=== PATIENT | male | born 1965 | race Caucasian/White ===

== ENCOUNTER 2024-01-12 13:00 | Outpatient (AMB) | payer BC, SELFPAY ==
--- NOTE | 2024-01-12 13:11 | A.OFFVIS_ITS ---
Intake Visit Reasons: nocturia Intake Note: New Patient presents for initial visit for Nocturia Urology Medications: none Blood Thinner: aspirin PVR: 51ml's Repack Room Worker Required: No Accompanied by: Self / Same As Patient Allergies No Known Allergies Allergy (Verified 01/12/24 14:02) Medication List - Last Reconciled 01/12/24 by JOSIAS Reis amlodipine 10 mg PO DAILY aspirin (Adult Aspirin Regimen) 81 mg PO DAILY atorvastatin 80 mg PO DAILY losartan 100 mg PO DAILY HPI Comments Details: Manjinder Leonardo is a very pleasant 58-year-old male patient of Dr. Reyes. He has a past medical history of arthritis, low-back pain, GERD, myocardial infarction, hypertension, tinnitus, and hyperlipidemia. He presents to the office today as a new patient for nocturia. In discussion with the patient today he reports noting nocturia over the last 6 months and self referred him cell for an appointment. He reports since his initial appointment he had since followed up with his primary care who suggested lifestyle modifications to assist with nocturia. 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 He reports since he has been limiting his fluids prior to bed he has decreased episodes of nocturia. He reports a family history of prostate cancer. He reports his brother got diagnosed with prostate cancer at the age of 40. Discussed at length potential causes for nocturia. When asked he does report symptoms of sleep apnea with fatigue, snoring, and nocturia. Discussed further workup with sleep study, retroperitoneal ultrasound, and PSA for further assessment evaluation. He otherwise denies urinary urgency, urinary frequency, incontinence, hematuria, dysuria, foul smelling urine, changes to urinary stream, flank pain, fever, and or chills. He does report a previous nicotine dependence however quit approximately 10 years ago after having suffered a myocardial infarction. In office urinalysis results reviewed with the patient today. PVR 51 mLs. He otherwise denies any other issues or concerns. [facility] Medical History (Updated 01/12/24 @ 14:02 by JOSIAS Reis) Allergic arthritis of both knees Closed fracture of lumbar vertebra Low back pain Gastroesophageal reflux Single vessel coronary disease Myocardial infarction Benign essential hypertension Tinnitus Mixed hyperlipidemia Family History (Updated 01/12/24 @ 13:35 by Carlos Ruffin) Brother Prostate cancer Review of Systems Const Reports no additional complaints Eyes Reports no additional complaints ENT Reports no additional complaints Card Reports as per HPI Resp Reports no additional complaints GI Reports as per HPI Reports as per HPI Musc Reports as per HPI Neuro Reports no additional complaints Psych Reports no additional complaints Endo Reports no additional complaints Gato/Lymph Reports no additional complaints Aller/Immun Reports no additional complaints Physical Exam Const General: cooperative, healthy appearing, comfortable, no acute distress, well developed, alert and awake Nutritional Appearance: overweight Orientation/consciousness: patient oriented x3 Limitations: no limitations HEENT Head: Yes normal to inspection, Yes normocephalic and Yes atraumatic Ears: hearing grossly normal bilaterally Eyes General: appearance normal, both eyes and all related structures Neck Neck: Yes normal visual inspection and Yes trachea midline Chest Chest palpation & inspection: normal inspection of the chest Resp Effort & Inspection: normal respiratory effort and able to speak in complete sentences Cardio Rate: regular rate GI Inspection: Yes normal to inspection General: Yes no CVA tenderness Back/Spine/Pelvis Back: no CVA tenderness Skin General skin exam: no rashes or lesions noted Neuro General: patient oriented x3 Extrem General: Yes normal to inspection Psych Appearance: grossly normal and well kempt Mental Status: mental status grossly normal Speech and movement: Normal speech and movement present and Clear speech present Affect: normal affect Attitude: cooperative Thought process: Normal thought process present Thought content: Normal thought content present Insight: Fair insight present (Psych) Judgement: Fair judgement present (Psych) Assessment & Plan Assessment & Plan (1) Family history of prostate cancer: Code(s): Z80.42 - Family history of malignant neoplasm of prostate Category: Medical (2) Nocturia: Code(s): R35.1 - Nocturia Category: Medical Plan In office urinalysis results reviewed with the patient today; as noted above. PVR 51 mL. Discussed at length potential causes for nocturia. Will obtain PSA and retroperitoneal ultrasound for further assessment evaluation. Will refer for sleep study for further assessment evaluation. Discussed and stressed the importance of limiting fluids 2-3 hours prior to bed to decrease episodes of nocturia. Discussed possible near future in office cystoscopy for further assessment evaluation. Follow-up in 1-3 months with imaging and labs to be completed prior; or sooner with any issues, concerns, and or questions. Orders: Orders US retroperitoneal comp Today R35.1 - Nocturia Prostate Specific Antigen Today R35.1 - Nocturia, Z80.42 - Family history of malignant neoplasm of prostate RT home sleep study Today R06.83 - Snoring, R35.1 - Nocturia, R53.83 - Other fatigue Patient Instructions: The patient had an opportunity to ask questions regarding the treatment plan. All questions were answered. Physical exam, labs, and imaging were discussed and reviewed in detail. As well as risks, benefits, and discussion of treatment choices. No major barriers to understanding were identified. The patient expressed understanding and agreement with the above treatment plan. The patient was made aware they should contact our office by phone for worsening of their current condition, the appearance of new symptoms, or with any questions or concerns. Compliance is encouraged with any medications and follow up testing that is ordered. It is a privilege to be allowed the opportunity to participate in? your urological care.? Again, if you have any questions or concerns If you have any questions or concerns please do not hesitate to contact me. The office is [phone]. This note is constructed using voice recognition software. While every effort has been made to ensure accuracy contract coordinator errors may have been included. Yours sincerely, ANGELA Reis-NATASHA Coding Level of Care Code New Pt Level 3 (20103) Diagnoses Family history of prostate cancer Z80.42 Nocturia R35.1
== END 2024-01-12 13:44 | disposition home or self-care (01) ==
PROVIDERS: PCP Family Medicine; Visit Provider Nurse Practitioner Family
DX: Z80.42 Family history of malignant neoplasm of prostate (principal); R35.1 Nocturia
CPT/HCPCS: 99203

== ENCOUNTER → 2024-01-12 13:00 | Outpatient (BNVA) | payer BC, SELFPAY | PROVIDERS: PCP Family Medicine; Visit Provider Nurse Practitioner Family ==

== ENCOUNTER → 2024-02-29 14:17 | Outpatient (REF) | payer BC, SELFPAY | LOC: HO.SL 14:17 | PROVIDERS: PCP Family Medicine; Visit Provider Nurse Practitioner Family | DX: G47.33 Obstructive sleep apnea (adult) (pediatric) (principal); R06.83 Snoring | CPT/HCPCS: 95806 ==

== ENCOUNTER 2024-06-21 13:52 | Outpatient (REF) | payer BC, SELFPAY | END 2024-06-21 13:53 | disposition home or self-care (01) | LOC: HO.US 13:52 | PROVIDERS: PCP Family Medicine; Visit Provider Nurse Practitioner Family | DX: R35.1 Nocturia (principal) | CPT/HCPCS: 76770 ==

== ENCOUNTER 2024-09-13 13:44 | Outpatient (AMB) | payer BC, SELFPAY ==
--- NOTE | 2024-09-13 13:47 | MHC.OFFVIS ---
Intake Visit Reasons: follow up US Intake Note: Patient is present for PSA/Ultrasound/PVR Follow up Urology Med:None Antibiotic Allergy:None Blood Thinner: Aspirin Last PVR: 51mls Todays PVR: 60ml Unable to provide urine sample today Denies any urinary symptoms Claims Service Adjustor Required: No Accompanied by: Self / Same As Patient Allergies No Known Allergies Allergy (Verified 09/13/24 14:27) Medication List - Last Reconciled 09/13/24 by JOSIAS Reis amlodipine 10 mg PO DAILY aspirin (Adult Aspirin Regimen) 81 mg PO DAILY atorvastatin 80 mg PO DAILY losartan 100 mg PO DAILY HPI Comments Details: Manjinder Leonardo is a very pleasant 59-year-old male patient of Dr. Reyes. He has a past medical history of arthritis, low-back pain, GERD, myocardial infarction, hypertension, tinnitus, and hyperlipidemia. He presents to the office today for follow-up. Of note, patient was seen approximately 8 months ago as a new patient for nocturia at which time a retroperitoneal ultrasound and PSA were ordered for further assessment evaluation and recommendation. These results reviewed with the patient today. Bilateral kidneys with no calculi or hydronephrosis. The bladder is well distended. Mild diffuse trabeculations of the bladder wall. Bilateral jets are demonstrated. Pre void bladder volume is approximately 465 mL. Postvoid bladder volume is approximately 60 mL. The prostate gland is enlarged with a volume of approximately 57 mL. He reports since his last office visit here he has intentionally lost approximately 30 lb and has limited his fluids NPO intake prior to bed and feels this is significantly helped his nocturia. PSA 04/22 2.1. He does have a family history of prostate cancer. He denies urinary urgency, urinary frequency, incontinence, hematuria, dysuria, foul smelling urine, changes to urinary stream, flank pain, fever, and or chills. In office urinalysis results reviewed with the patient today. PVR 60mLs. We discussed at length bladder trabeculations and enlarged prostate. We discussed further treatment options and risks and benefits of these treatment options. Patient would like to continue with surveillance monitoring at this time as he does not feel he has any bothersome urinary issues or concerns. He otherwise denies any other issues or concerns. [facility] Medical History Allergic arthritis of both knees Closed fracture of lumbar vertebra Low back pain Gastroesophageal reflux Single vessel coronary disease Myocardial infarction Benign essential hypertension Tinnitus Mixed hyperlipidemia Family History Brother Prostate cancer Social History Patient Tobacco Use Status: Former Tobacco user Review of Systems Const Reports no additional complaints Eyes Reports no additional complaints ENT Reports no additional complaints Card Reports as per HPI Resp Reports no additional complaints GI Reports as per HPI Reports as per HPI Musc Reports as per HPI Neuro Reports no additional complaints Psych Reports no additional complaints Endo Reports no additional complaints Gato/Lymph Reports no additional complaints Aller/Immun Reports no additional complaints Physical Exam Const General: cooperative, healthy appearing, comfortable, no acute distress, well developed, alert and awake Nutritional Appearance: overweight Orientation/consciousness: patient oriented x3 Limitations: no limitations HEENT Head: Yes normal to inspection, Yes normocephalic and Yes atraumatic Ears: hearing grossly normal bilaterally Eyes General: appearance normal, both eyes and all related structures Neck Neck: Yes normal visual inspection and Yes trachea midline Chest Chest palpation & inspection: normal inspection of the chest Resp Effort & Inspection: normal respiratory effort and able to speak in complete sentences Cardio Rate: regular rate GI Inspection: Yes normal to inspection General: Yes no CVA tenderness Back/Spine/Pelvis Back: no CVA tenderness Skin General skin exam: no rashes or lesions noted Neuro General: patient oriented x3 Extrem General: Yes normal to inspection Psych Appearance: grossly normal and well kempt Mental Status: mental status grossly normal Speech and movement: Normal speech and movement present and Clear speech present Affect: normal affect Attitude: cooperative Thought process: Normal thought process present Thought content: Normal thought content present Insight: Fair insight present (Psych) Judgement: Fair judgement present (Psych) Office Procedures Post Void Residual Post Residual Void Post Void Residual (PVR): 60 [id number] Void Residual by ultrasound Results Reviewed Results Reviewed: Date of Service: 06/21/24 EXAMINATION: US RETROPERITONEAL COMPLETE (RENAL) FINDINGS: RIGHT KIDNEY: 12.4 x 6.9 x 5.9 cm (SAG x AP x TRV). No hydronephrosis. No renal calculi. Renal cortical thickness is normal. Limited visualization. LEFT KIDNEY: 12.5 x 6.3 x 5.6 cm (SAG x AP x TRV). No hydronephrosis. No renal calculi. Renal cortical thickness is normal. Limited visualization. BLADDER: Well-distended. Mild diffuse trabeculation of the bladder wall. Bilateral ureteral jets are demonstrated. Prevoid bladder volume is 464 mL. Postvoid bladder volume is 24.1 mL. PROSTATE GLAND: The prostate gland is enlarged with a volume of 56.54 mL. IMPRESSION: 1. No hydronephrosis. No renal calculi. Renal cortical thickness is normal. Limited visualization. 2. Mild diffuse trabeculation of the bladder wall. 3. Prevoid bladder volume is 464 mL. Postvoid bladder volume is 24.1 mL. 4. The prostate gland is enlarged with a volume of 56.54 mL.. Assessment & Plan Assessment & Plan (1) Family history of prostate cancer: Code(s): Z80.42 - Family history of malignant neoplasm of prostate Category: Medical (2) Nocturia: Code(s): R35.1 - Nocturia Category: Medical (3) Bladder trabeculation: Code(s): N32.89 - Other specified disorders of bladder Category: Medical (4) Enlarged prostate: Code(s): N40.0 - Benign prostatic hyperplasia without lower urinary tract symptoms Category: Medical Plan In office urinalysis results reviewed the patient today; as noted above. PVR 60 mL. Recent PSA results reviewed with the patient today. Recent retroperitoneal ultrasound results reviewed with the patient today; as noted above. We discussed at length bladder trabeculations as well as enlarged prostate and further treatment options. Patient currently denies any bothersome urinary issues or concerns. He reports be happy with current voiding parameters. Will continue with surveillance monitoring. Will obtain PSA in 6 months. Follow-up in 6 months with PSA and PVR; or sooner with any issues, concerns, and or questions. Orders: Orders AMB Post Void Residual by ultrasound Today R35.1 - Nocturia Patient Instructions: The patient had an opportunity to ask questions regarding the treatment plan. All questions were answered. Physical exam, labs, and imaging were discussed and reviewed in detail. As well as risks, benefits, and discussion of treatment choices. No major barriers to understanding were identified. The patient expressed understanding and agreement with the above treatment plan. The patient was made aware they should contact our office by phone for worsening of their current condition, the appearance of new symptoms, or with any questions or concerns. Compliance is encouraged with any medications and follow up testing that is ordered. It is a privilege to be allowed the opportunity to participate in? your urological care.? Again, if you have any questions or concerns If you have any questions or concerns please do not hesitate to contact me. The office is [phone]. This note is constructed using voice recognition software. While every effort has been made to ensure accuracy transportation superintendent errors may have been included. Yours sincerely, JOSIAS Reis Coding Level of Care Code Est Pt Level 4 (80166) Diagnoses Family history of prostate cancer Z80.42 Nocturia R35.1 Bladder trabeculation N32.89 Enlarged prostate N40.0 CPT Codes Post Residual Void - PVR CPT Code: [id number]-[id number] Void Residual by ultrasound ([id number]) Time Spent (min) 35
--- OUTSIDE RECORDS SUMMARY | 2024-09-13 16:12 | XMS_ITS | Data Portability ---
Author Organization [facility], [facility] Address [address] [place] [address] Care Team Providers Care Pasting Machine Offbearer Name Role Phone CHAPARRITA PEREZEMY OTHER EUGENIO CARY Gang Ripsaw Operator TODD REYES Primary Care Provider [facility] [employer] Inspector DREA BATES Urologist Assessment No assessment recorded. Plan of Treatment Reminders Order Date Submit Date Provider Last Modified By Organization Details Last Modified Time Details Appointments Follow Up, 15 2024 02:30P M Todd Reyes, DO Not available Not available Not available LAB Follow- Up 2024 02:30P M [facility] Lab Not available Not available Not available [facility] s Visit 30 2024 02:00P M Todd Reyes, DO Not available Not available Not available Lab HIV (1+2) antibod ies, EIA, serum, reflex HIV-1 western blot (WB) 2023 024 [facility], [address] [place] [address], [id number], 11/02/2023 10:23:55 RPR (rapid plasma reagin) , serum 2023 024 [facility], [address] [place] [address], [id number], 11/04/2023 15:26:14 hepatit is C virus Ab, serum 2023 024 [facility], [address] [place] [address], [id number], 11/02/2023 10:23:56 HBsAg (hepati tis B surface Ag), serum 2023 [facility], [address] [place] [address], [id number], 11/02/2023 10:23:53 hepatit is B surface Ab, quantit ative, serum 2023 024 [facility], [address] [place] [address], [address], 11/02/2023 10:23:52 mycopla sma genital ium DNA, QL, SHAMA+pro be, urine - SOURCE: URINE 2023 [facility], [address] [place] [address], [id number], 11/03/2023 14:37:22 urinaly sis, dipstic k, auto 2023 024 [facility], [address] [place] [address], [address], 11/02/2023 09:10:[address] referra l 2023 BRENT Newman MD, [address] [place] [address], [address], 01/12/2024 22:33:57 Procedures nerve conduct ion study/E MG, upper extremi ty (PROC) - emg ~ 90% of the time it's on the right but 10% of the time he DOES have it on the left side 2023 aforesherbert Capone MD, [address] [place] [address], [address], 01/11/2024 12:26:06 Surgeries None recorde d. Imaging LDCT, chest, for lung cancer screeni ng 2023 024 [facility], [address] [place], [address], 12/21/2023 09:23:45 Medication Orders None recorde d. Patient TargetsNo targets recorded. Patient InstructionsNo instructions recorded. Reason for Referral Urologist Referral for Noctu josé miguel Referring Physician: Todd Reyes, Family Medicine, Encounter Date: 11/12/2023 Results Created Date Observation Date Name Description Value Unit Range Abnormal Flag Note LastModifiedBy Organization Detail LastModifiedTime 05/28/2005/31/2023 BASIC METAB OLIC PANEL glucose 108 mg/dL 70-100 high Not Available [address], [address], 05/31/2023 12:27:47 05/28/2005/31/2023 BASIC METAB OLIC PANEL BUN 11 mg/dL 7-18 Not Available [address], [address], 05/31/2023 12:27:47 05/28/2005/31/2023 BASIC METAB OLIC PANEL creatinine 1.0 mg/dL 0.8-1. 3 Not Available [address], [address], 05/31/2023 12:27:47 05/28/2005/31/2023 BASIC METAB OLIC PANEL B/C 11.0 ratio Not Available [address], [address], 05/31/2023 12:27:47 05/28/2005/31/2023 BASIC METAB OLIC PANEL GFR >=60ML /MIN mL/mi n normal >=60m L/min - Nikki l or midly reduc ed <60mL /min- Decre ased kidne y funct ion <15mL /min - Kidne y failu re [facility] calcu lates estim ated Glome rular Filtr ation Rate (eGFR ) using the Chron ic Kidne y Disea se Epide miolo gy Colla borat ion (CKD- EPI) Equat ion (Jim mercado et. al 2020) as recom sy d by the [facility] . eGFR is based on age, serum creat inine , and sex. CKD-E PI does not calcu late eGFR by race, does not apply to child annabella (age <18 years ), and shoul d not be used in pregn dona. Not Available [address], [address], 05/31/2023 12:27:47 05/28/20 23 05/31/2023 BASIC METAB OLIC PANEL sodium 141 mmol/ L 136-14 5 Not Available [address], [address], 05/31/2023 12:27:47 05/28/20 23 05/31/2023 BASIC METAB OLIC PANEL potassium 4.5 mmol/ L 3.5-5. 1 Not Available [address], [address], 05/31/2023 12:27:47 05/28/20 23 05/31/2023 BASIC METAB OLIC PANEL chloride 104 mmol/ L 96-107 Not Available [address], [address], 05/31/2023 12:27:47 05/28/20 23 05/31/2023 BASIC METAB OLIC PANEL anion gap 10.0 5.0-15 .0 Not Available [address], [address], 05/31/2023 12:27:47 05/28/20 23 05/31/2023 BASIC METAB OLIC PANEL CO2 27 mmol/ L 21-32 Not Available [address], [address], 05/31/2023 12:27:47 05/28/20 23 05/31/2023 BASIC METAB OLIC PANEL calcium 9.2 mg/dL 8.5-10 .3 Not Available [address], [address], 05/31/2023 12:27:47 05/28/20 23 05/31/2023 PSA PSA 1.33 NG/mL 0.00-4 .00 Not Available [address], [address], 05/31/2023 13:16:12 11/01/19 24 11/02/2023 URINA LYSIS color YELLOW yellow Not Available [address], [address], 11/02/2023 09:10:10 11/01/19 24 11/02/2023 URINA LYSIS clarity SLIGHT LY CLOUDY clear Not Available [address], [address], 11/02/2023 09:10:10 11/01/19 24 11/02/2023 URINA LYSIS glucose NEGATI VE negati ve Not Available [address], [address], 11/02/2023 09:10:10 11/01/19 24 11/02/2023 URINA LYSIS bilirubin NEGATI VE negati ve Not Available [address], [address], 11/02/2023 09:10:10 11/01/19 24 11/02/2023 URINA LYSIS ketones NEGATI VE negati ve Not Available [address], [address], 11/02/2023 09:10:10 11/01/19 24 11/02/2023 URINA LYSIS specific gravity 1.025 1.001- 1.035 Not Available [address], [address], 11/02/2023 09:10:10 11/01/19 24 11/02/2023 URINA LYSIS pH 5.5 5.0-8. 0 Not Available [address], [address], 11/02/2023 09:10:10 11/01/19 24 11/02/2023 URINA LYSIS protein NEGATI VE negati ve Not Available [address], [address], 11/02/2023 09:10:10 11/01/19 24 11/02/2023 URINA LYSIS urobilinogen 0.2 E.U./D L <1.0 Not Available [address], [address], 11/02/2023 09:10:10 11/01/19 24 11/02/2023 URINA LYSIS nitrates NEGATI VE negati ve Not Available [address], [address], 11/02/2023 09:10:10 11/01/19 24 11/02/2023 URINA LYSIS blood NEGATI VE negati ve Not Available [address], [address], 11/02/2023 09:10:10 11/01/19 24 11/02/2023 URINA LYSIS leukocytes NEGATI VE negati ve Not Available [address], [address], 11/02/2023 09:10:10 11/01/19 24 11/02/2023 URINE , MICRO SCOPI C WBC 0-2 hpf 0-4/hp f Not Available [address], [address], 11/02/2023 09:24:00 11/01/19 24 11/02/2023 URINE , MICRO SCOPI C RBC 0-2 hpf 0-2/hp f Not Available [address], [address], 11/02/2023 09:24:00 11/01/19 24 11/02/2023 URINE , MICRO SCOPI C bacteria 3+ none seen Not Available [address], [address], 11/02/2023 09:24:00 11/01/19 24 11/02/2023 URINE , MICRO SCOPI C yeast NONE SEEN none seen Not Available [address], [address], 11/02/2023 09:24:00 11/01/19 24 11/02/2023 URINE , MICRO SCOPI C squamous epithelial cells 1 hpf 0-5 Not Available [address], [address], 11/02/2023 09:24:00 11/01/19 24 11/02/2023 URINE , MICRO SCOPI C calcium oxalate crystals TRACE none seen Not Available [address], [address], 11/02/2023 09:24:00 11/01/19 24 11/02/2023 URINE , MICRO SCOPI C mucous 1+ none seen Not Available [address], [address], 11/02/2023 09:24:00 11/01/19 24 11/02/2023 BASIC METAB OLIC PANEL glucose 125 mg/dL 70-100 high Not Available [address], [address], 11/02/2023 09:47:28 11/01/19 24 11/02/2023 BASIC METAB OLIC PANEL BUN 14 mg/dL 7-18 Not Available [address], [address], 11/02/2023 09:47:28 11/01/19 24 11/02/2023 BASIC METAB OLIC PANEL creatinine 0.9 mg/dL 0.8-1. 3 Not Available [address], [address], 11/02/2023 09:47:28 11/01/19 24 11/02/2023 BASIC METAB OLIC PANEL B/C 15.6 ratio Not Available [address], [address], 11/02/2023 09:47:28 11/01/19 24 11/02/2023 BASIC METAB OLIC PANEL GFR >=60ML /MIN mL/mi n normal >=60m L/min - Nikki l or midly reduc ed <60mL /min- Decre ased kidne y funct ion <15mL /min - Kidne y failu re [facility] calcu lates estim ated Glome rular Filtr ation Rate (eGFR ) using the Chron ic Kidne y Disea se Epide miolo gy Colla borat ion (CKD- EPI) Equat ion (Jim r et. al 2020) as recom sy d by the [facility] n[facility] ation . eGFR is based on age, serum creat inine , and sex. CKD-E PI does not calcu late eGFR by race, does not apply to child annabella (age <18 years ), and shoul d not be used in pregn dona. Not Available [address], [address], 11/02/2023 09:47:28 11/01/19 24 11/02/2023 BASIC METAB OLIC PANEL sodium 140 mmol/ L 136-14 5 Not Available [address], [address], 11/02/2023 09:47:28 11/01/19 24 11/02/2023 BASIC METAB OLIC PANEL potassium 4.0 mmol/ L 3.5-5. 1 Not Available [address], [address], 11/02/2023 09:47:28 11/01/19 24 11/02/2023 BASIC METAB OLIC PANEL chloride 102 mmol/ L 96-107 Not Available [address], [address], 11/02/2023 09:47:28 11/01/19 24 11/02/2023 BASIC METAB OLIC PANEL anion gap 11.6 5.0-15 .0 Not Available [address], [address], 11/02/2023 09:47:28 11/01/19 24 11/02/2023 BASIC METAB OLIC PANEL CO2 26 mmol/ L 21-32 Not Available [address], [address], 11/02/2023 09:47:28 11/01/19 24 11/02/2023 BASIC METAB OLIC PANEL calcium 9.4 mg/dL 8.5-10 .3 Not Available [address], [address], 11/02/2023 09:47:28 11/01/19 24 11/02/2023 LIPID PANEL cholesterol 146 mg/dL <200 mg/dl Tamar able 200-2 39 mg/dl Borde rline High >240 mg/dl High Not Available [address], [address], 11/02/2023 09:47:30 11/01/19 24 11/02/2023 LIPID PANEL triglyceride s 89 mg/dL <150 mg/dL Nikki l 150-1 99 mg/dL Borde rline High 200-4 99 mg/dL High >500 mg/dL Very High Not Available [address], [address], 11/02/2023 09:47:30 11/01/19 24 11/02/2023 LIPID PANEL direct HDL 54 mg/dL <40 mg/dl - Major Risk for CHD >60 mg/dl - Negat anish Risk for CHD Not Available [address], [address], 11/02/2023 09:47:30 11/01/19 24 11/02/2023 DIREC T LDL direct LDL 70 mg/dL RISK CATEG ORY LDL GOAL _ CHD or CHD Risk Equiv alent s <100 mg/dl (10-y ear risk >20%) 2+ Risk Facto rs <130 mg/dl (10-y ear risk <= 20%) 0-1 Risk Facto r??? <160 mg/dl ??? Almos t all peopl e with 0-1 risk facto r have a 10 year risk <10%, thus 10 year risk asses ment in peopl e with 0-1 risk facto r is not heydistephan mcdaniel. Not Available [address], [place], [address], 11/02/2023 09:47:32 11/01/19 24 11/02/2023 HEPAT ITIS B SURFA CE AB IMMUN ITY, QN hepatitis B surface Ab immunity, qn 25 mIU/m L > or = 10 normal PATIE NT HAS IMMUN ITY TO HEPAT ITIS B VIRUS . For addit ional infor amy hahn e refer to http: //[employer] [facility].joanne stdia gnost ics.c om/fa q/FAQ 105 (This link is being provi ded for infor matio nal/ educa yulia l purpo ses only) . Not Available [facility] [address], [address], 11/02/2023 10:23:52 11/01/19 24 11/02/2023 HEPAT ITIS B SURFA CE ANTIG EN W/REF L CONFI RM hepatitis B surface antigen NON-RE ACTIVE non-re active normal For addit ional infor amy hahn e refer to http: //[employer] catio n.que stdia gnost ics.c om/fa q/FAQ 202 (This link is being provi ded for infor matio nal/ educa yulia l purpo ses only. ) Not Available [facility] [address], [address], 11/02/2023 10:23:53 11/01/19 24 11/02/2023 HIV 1/2 ANTIG EN/AN TIBOD Y,FOU RTH GENER ATION W/RFL HIV Ag/Ab, 4TH gen NON-RE ACTIVE non-re active normal HIV-1 antig en and HIV-1 /HIV- 2 antib odies were not detec iliana. There is no labor atory evide nce of HIV infec tion. PLEAS E NOTE: This infor matio n has been discl osed to you from recor ds whose confi denti ality may be prote cted by state law. If your state requi res such prote ction , then the state law prohi bits you from zahra g any furth er discl osure of the infor matio n witho ut the speci fic writt en conse nt of the perso n to whom it perta ins, or as other maya permi tted by law. A gener al autho rizat ion for the relea se of medic al or other infor matio n is NOT suffi cient for this purpo se. For addit ional infor matio n pleas e refer to http: //[facility].joanne stdia gnost ics.c om/fa q/FAQ 106 (This link is being provi ded for infor matio nal/ educa yulia l purpo ses only. ) The perfo rmanc e of this assay has not been clini sara valid ated in patie nts less than 2 years old. Not Available [facility] [address] [place] [address] [address], [place], [address], 11/02/2023 10:23:55 11/01/19 24 11/02/2023 HEPAT ITIS C AB W/REF L TO HCV RNA, QN, PCR hepatitis C antibody NON-RE ACTIVE non-re active normal HCV antib fawn was non-r eacti ve. There is no labor atory evide nce of HCV infec tion. In most cases , no furth er actio n is requi red. Howev er, if recen t HCV expos ure is suspe cted, a test for HCV RNA (test code 52532 ) is sugge sted. For addit ional infor matio n pleas e refer to http: //[facility] njennifer stdia gnost ics.c om/fa q/FAQ 22v1 (This link is being provi ded for infor monica may/ jabari willo ses only. ) Not Available [facility] [address], [address], 11/02/2023 10:23:56 11/01/19 24 11/03/2023 CHLAM YDIA/ GC, URINE SURESH N. gonorrhoeae GC NEG negati ve normal Not Available [address], [address], 11/03/2023 14:37:21 11/01/19 24 11/03/2023 CHLAM YDIA/ GC, URINE SURESH C. trachomatis CT NEG negati ve normal Not Available [address], [address], 11/03/2023 14:37:21 11/01/19 24 11/03/2023 MYCOP LASMA GENIT ALIUM , URINE SURESH mycoplasma genitalium NEGATI VE negati ve normal Not Available [address], [address], 11/03/2023 14:37:22 11/01/19 24 11/04/2023 CULTU RE, URINE , ROUTI NE culture, urine, routine CULTU RE, URINE , ROUTI NE Micro Numbe r: [id number] Test Statu s: Final Speci men Sourc e: Urine Speci men Quali ty: Adequ ate Resul t: No Growt h Not Available [facility] [address], [address], 11/04/2023 10:13:31 11/01/19 24 11/04/2023 RPR RPR NON-RE ACTIVE nonrea ctive Not Available [address], [address], 11/04/2023 15:26:14 04/20/20 24 04/21/2024 PSA PSA 2.14 NG/mL 0.00-4 .00 Not Available [address], [address], 04/21/2024 15:03:58 05/03/2005/05/2024 BASIC METAB OLIC PANEL glucose 100 mg/dL 70-100 Not Available [address], [address], 05/05/2024 14:09:05 05/03/20 24 05/05/2024 BASIC METAB OLIC PANEL BUN 14 mg/dL 7-18 Not Available [address], [address], 05/05/2024 14:09:05 05/03/2005/05/2024 BASIC METAB OLIC PANEL creatinine 0.9 mg/dL 0.8-1. 3 Not Available [address], [address], 05/05/2024 14:09:05 05/03/20 24 05/05/2024 BASIC METAB OLIC PANEL B/C 15.6 ratio Not Available [address], [address], 05/05/2024 14:09:05 05/03/2005/05/2024 BASIC METAB OLIC PANEL GFR >=60ML /MIN mL/mi n normal >=60m L/min - Nikki l or midly reduc ed <60mL /min- Decre ased kidne y funct ion <15mL /min - Kidne y failu re [facility] calcu lates estim ated Glome rular Filtr ation Rate (eGFR ) using the Chron ic Kidne y Disea se Epide miolo gy Colla borat ion (CKD- EPI) Equat ion (Jim r et. al 2020) as recom ys d by the Natio nal Kidne y Found ation . eGFR is based on age, serum creat inine , and sex. CKD-E PI does not calcu late eGFR by race, does not apply to child annabella (age <18 years ), and shoul d not be used in pregn dona. Not Available [address], [address], 05/05/2024 14:09:05 05/03/20 24 05/05/2024 BASIC METAB OLIC PANEL sodium 140 mmol/ L 136-14 5 Not Available [address], [address], 05/05/2024 14:09:05 05/03/20 24 05/05/2024 BASIC METAB OLIC PANEL potassium 4.8 mmol/ L 3.5-5. 1 Not Available [address], [address], 05/05/2024 14:09:05 05/03/20 24 05/05/2024 BASIC METAB OLIC PANEL chloride 103 mmol/ L 96-107 Not Available [address], [address], 05/05/2024 14:09:05 05/03/20 24 05/05/2024 BASIC METAB OLIC PANEL anion gap 8.4 5.0-15 .0 Not Available [address], [address], 05/05/2024 14:09:05 05/03/20 24 05/05/2024 BASIC METAB OLIC PANEL CO2 29 mmol/ L 21-32 Not Available [address], [address], 05/05/2024 14:09:05 05/03/20 24 05/05/2024 BASIC METAB OLIC PANEL calcium 8.8 mg/dL 8.5-10 .3 Not Available [address], [address], 05/05/2024 14:09:05 05/03/20 24 05/05/2024 LIPID PANEL cholesterol 146 mg/dL <200 mg/dl Tamar able 200-2 39 mg/dl Borde rline High >240 mg/dl High Not Available [address], [address], 05/05/2024 14:09:06 05/03/20 24 05/05/2024 LIPID PANEL triglyceride s 90 mg/dL <150 mg/dL Nikki l 150-1 99 mg/dL Borde rline High 200-4 99 mg/dL High >500 mg/dL Very High Not Available [address], [address], 05/05/2024 14:09:06 05/03/20 24 05/05/2024 LIPID PANEL direct HDL 61 mg/dL <40 mg/dl - Major Risk for CHD >60 mg/dl - Negat anish Risk for CHD Not Available [address], [address], 05/05/2024 14:09:06 05/03/20 24 05/05/2024 LDL - CALCU LATED LDL - calculated 67 RISK CATEG ORY LDL GOAL _ CHD or CHD Risk Equiv alent s <100 mg/dl (10-y ear risk >20%) 2+ Risk Facto rs <130 mg/dl (10-y ear risk <= 20%) 0-1 Risk Facto r??? <160 mg/dl ??? Almos t all peopl e with 0-1 risk facto r have a 10 year risk <10%, thus 10 year risk asses ment in peopl e with 0-1 risk facto r is not neces jonas. Not Available [address], [address], 05/05/2024 14:09:06 12/20/19 24 12/20/2023 LDCT, chest , for lung cance r scree dai No observ ation record ed. BRENT [facility] [address] [facility], [place], [address], 01/07/2024 16:34:28 01/21/20 24 01/20/2024 nerve condu ction study No observ ation record ed. [email or web address] [facility] [address], [place], [address], 02/12/2024 11:31:00 08/22/2006/21/2024 US, renal No observ ation record ed. [email or web address] [facility] [address], [place], [address], 08/31/2024 21:52:42 Result Notes None recorded. 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 Reason: historic valery Reyes, [address] [place], [place] [address]J[place], [address], [facility] 4 15:22:32 Single coronary vessel disease 082702357 Active Nabil Mims MD [address] [place], [place] [address], [address], [facility] 6 14:59:00 Benign essentia l hyperten olegario 8821439 Active Nabil Mims MD [address] [place], [place] [address], [address], [facility] 6 14:58:59 Bilatera l arthriti s of knees [id number] 62655 Active 2016 Nabil Mims MD [address] [place], [place] [address], [address], [facility] 7 14:41:43 Mixed hyperlip idemia 577098481 [facility] 14:[facility]15 Precordi al pain 81056748 Completed 200008/17/2010 Nabil Mims MD [address] [place], [place] [address], [address], [facility] 6 14:07:56 Gastroes ophageal reflux disease 607775552 Active 2007 Nabil Mims MD [address] [place], [place] [address]J[place], [address], [facility] 6 14:07:56 Sandy m 480506014 Completed 200208/17/2010 Nabil Mims MD [address] [place], [place] [address]J[place], [address], [facility] 6 14:07:56 Increase d frequenc y of urinatio n 202443117 Completed 200708/17/2010 Nabil Mims MD [address] [place], [place] [address], [address], [facility] 6 14:07:56 Tobacco user 766270367 Completed 200602/28/2015 Quit October 2013 Nabil Mims MD [facility] [place], [address], [facility] 6 14:07:55 Neck pain 31246939 Completed 200107/19/2013 Nabil Mims MD [facility] [place], [address], [facility] 6 14:07:56 Vertigin ous syndrome 09704025 Completed 200708/17/2010 Nabil Mims MD [address] [place], [place] [address]J[place], [address], [facility] 6 14:07:56 Sprain of spinal ligament 544103814 Completed 200208/17/2010 Nabil Mims MD [address] [place], [place] [address], [address], [facility] 6 14:07:56 Testicul ar hypofunc tion 982648287 Completed 200508/17/2010 Nabil Mims MD [facility] [place], [address], [facility] 6 14:07:55 Finding by method [id number] Completed 200008/17/2010 [place], [address], [facility] 6 14:07:56 Breathin g painful 28883622 Completed 200008/17/2010 Nabil Mims MD [address] [place] [address] [place], [address], [facility] 6 14:07:56 Pain in throat 520470821 Completed 200708/17/2010 Nabil Mims MD [address] [place] [address] [place], [address], [facility] 6 14:07:56 Psychose xual dysfunct ion associat ed with inhibite d libido 927123285 Completed 200408/17/2010 Nabil Mims MD [address] [place] [address] [place], [address], [facility] 6 14:07:55 Common cold 65178821 Completed 200508/17/2010 Nabil Mims MD [address] [place] [address] [place], [address], [facility] 6 14:07:56 Verruca vulgaris 67725112 Completed 200608/17/2010 Nabil Mims MD [address] [place] [address] [place], [address], [facility] 6 14:07:55 On examinat ion - a rash Completed 199908/17/2010 Nabil Mims MD [address] [place] [address] [place], [address], [facility] 6 14:07:56 Closed fracture lumbar vertebra 007807352 Active Nabil Mims MD [address] [place] [address] [place], [address], [facility] 6 14:07:56 Acute maxillar y sinusiti s 51485766 Completed 200508/17/2010 Nabil Mims MD [address] [place] [address] [place], [address], [facility] 14:07:56 Elevated blood-pr essure reading without diagnosi s of hyperten olegario 922484337 Completed 200708/17/2010 Nabil Mims MD [address] [place] [address] [place], [address], [facility] 6 14:07:56 Hyperlip idemia 35445937 Completed 200708/17/2010 Nabil Mims MD [address] [place], [place] [address]J[place], [address], [facility] 6 14:07:55 Low back pain 673267886 Active 2007 Nabil Mims MD [facility] [place], [address], [facility] 6 14:07:56 Pain in thoracic spine 476172760 Completed 07/19/2013 Nabil Mims MD [address] [place], [place] [address], [address], [facility] 6 14:07:56 Urethrit is 35586617 Completed 200407/19/2013 Nabil Mims MD [facility] [place], [address], [facility] 6 14:07:56 Tinnitus 58941075 Active 2003 Nabil Mims MD [address] [place], [place] [address]J[place], [address], [facility] 6 14:07:56 Benign prostati c hyperpla demetrio 645344573 Completed 200708/17/2010 Nabil Mims MD [address] [place] [address] [place], [address], [facility] 6 14:07:56 Otogenic otalgia 24601883 Completed 200308/17/2010 Nabil Mims MD [address] [place] [address] [place], [address], [facility] 6 14:07:56 Problem Notes None recorded. Procedures Surgical History Date Name Laterality Status Provider Name and Address Organization Details Recorded Time 1 prevention-card iovascular risk reduction counseling completed Ginna Rudd CMA [facility] 02/25/2021 11:21:15 1 prevention-carlos al alcohol misuse screening completed Ginna ELANA Rudd [facility] 02/25/2021 11:21:15 0 prevention-card iovascular risk reduction counseling completed Randi CalabreseAZEB brizuela [facility] 10/10/2019 11:01:41 0 prevention-carlos al alcohol misuse screening completed Randi CalabreseAZEB brizuela [facility] 10/10/2019 11:01:41 Imaging Results Imaging Date Name Status LastModified by Organiz ation Details LastModified Time 12/20/2023 LDCT, chest, for lung cancer screening completed [address], [address], 01/07/2024 16:34:28 01/20/2024 nerve conduction study completed [address] [place], [address], 02/12/2024 11:31:00 06/21/2024 US, renal completed [address] [place] [address], [address], 08/31/2024 21:52:42 Procedure Notes None recorded. Medical Equipment None Reported. Allergies No known drug allergies Medications Name Sig Start Date Stop Date Status Note LastModified by Organization Details LastModified Time losartan 50 mg tablet TAKE 1 TABLET BY MOUTH EVERY DAY 03/28 completed Not Available Not Available Not Available amoxicill in 500 mg capsule TAKE 4 CAPSULES ONE HOUR PRIOR TO DENTAL WORK. USE REMAININ G CAPSULES FOR FUTURE VISITS. active Not Available Not Available No t Available atorvasta tin 80 mg tablet TAKE 1 TABLET BY MOUTH EVERYDAY AT BEDTIME active Not Available Not Available No t Available Drisdol 1,250 mcg (50,000 unit) capsule Take 1 capsule every week by oral route. 2012 active Not Available Not Available Not Avai lable valsartan 80 mg tablet Take 1 tablet every day by oral route for 30 days. 03/27 completed Not Available Not Available Not Available clopidogr el 75 mg tablet TAKE 1 TABLET EVERY DAY 2014 active Not Available Not Available Not Avai lable amlodipin e 5 mg tablet TAKE 1 TABLET BY MOUTH EVERY DAY 04/02 completed Not Available Not Available Not Available sildenafi l 25 mg tablet TAKE ONE TABLET BY MOUTH EVERY DAY active Not Available Not Available No t Available aspirin 81 mg tablet,de layed release TAKE 1 TABLET EVERY DAY active Not Available Not Available No t Available tramadol 50 mg tablet 03/27 completed Not Available Not Available Not Available Nexium 20 mg capsule,d elayed release Take 1 capsule every day by oral route as needed. 05/31 completed per cardiolo gy 04/19/19 Not Available Not Available Not Available oxycodone -acetamin ophen 5 mg-325 mg tablet Take 1-2 tablet as needed daily by oral route for neck pain. 04/19 completed Not Available Not Available Not Available lorazepam 0.5 mg tablet Take 1 tablet twice a day by oral route as needed for 14 days. 01/01 completed patient reports to not taking. 09/11/22 EM Not Available Not Available Not Available amlodipin e 10 mg tablet TAKE 1 TABLET BY MOUTH EVERY DAY active Not Available Not Available No t Available benzonata te 100 mg capsule 10/06 completed Not Available Not Available Not Available lisinopri l 10 mg tablet Take 1 tablet every day by oral route. active Not Available Not Available No t Available lisinopri l 5 mg tablet TAKE 1 TABLET BY MOUTH EVERY DAY 2014 active Not Available Not Available Not Avai lable mupirocin 2 % topical ointment Apply 1 applicat ion 3 times a day by topical route for 7 days. 07/05 completed Not Available Not Available Not Available metoprolo l succinate ER 25 mg tablet,ex tended release 24 hr Take 1 tablet every day by oral route. 12/04 completed dizzines s/ED Not Available Not Available Not Available ibuprofen 600 mg tablet 10/06 completed Not Available Not Available Not Available celecoxib 100 mg capsule TAKE 1 CAPSULE BY MOUTH DAILY FOR 7 DAYS. 08/04 /2023 completed Not Available Not Available Not Available losartan 100 mg tablet TAKE 1 TABLET BY MOUTH EVERY DAY active Not Available Not Available No t Available oxycodone 5 mg tablet TAKE 1 TABLET (5 MG TOTAL) BY MOUTH EVERY 4 HOURS NEEDED 05/31 completed not taking 04/02/23 m Not Available Not Available Not Available valsartan 160 mg tablet Take 1 tablet every day by oral route. 04/26 completed medicati on recalled Not Available Not Available Not Available Prilosec OTC 20 mg tablet,de layed release 2007 active Take 1.00 tabs twice daily Not Available Not Available Not Available Cialis 5 mg tablet TAKE 2 TABLETS BY MOUTH NEEDED 2014 active Not Available Not Available Not Avai lable Cialis 20 mg tablet Take 1 tablet as needed by oral route. 2013 active Not Available Not Available Not Avai lable sildenafi l (pulmonar y hypertens ion) 20 mg tablet 07/09 completed Not Available Not Available Not Available Vitals Date Recorded Body height Body mass index (BMI) Body weight Heart rate Systolic blood pressure Diastolic blood pressure Provider Name and Address Organization Details Last Updated DateTime 3 182.88 cm 33.5 kg/m2 757393. 03 g 76 /min 118 mm[Hg] 78 mm[Hg] Flaca gavin MA [facility] 3 10:22:24 Date Recorded Body height Oxygen saturation Oxygen saturation in Arterial blood by Pulse oximetry Heart rate Systolic blood pressure Diastolic blood pressure Provider Name and Address Organization Details Last Updated DateTime 4 182.88 cm 99 % 99 % 79 /min 140 mm[Hg] 80 mm[Hg] Meagan Turcios [facility] 4 11:03:57 Date Recorded Body height Body mass index (BMI) Body weight Heart rate Systolic blood pressure Diastolic blood pressure Provider Name and Address Organization Details Last Updated DateTime 4 182.88 cm 33.7 kg/m2 421265. 63 g 64 /min 120 mm[Hg] 78 mm[Hg] Flaca gavin MA [facility] 4 14:43:50 Date Recorded Body height Body mass index (BMI) Body weight Body temperature Heart rate Oxygen saturation Oxygen saturation in Arterial blood by Pulse oximetry Systolic blood pressure Diastolic blood pressure Provider Name and Address Organization Details Last Updated DateTime 4 182.88 cm 32.3 kg/m2 443906. 98 g 97.9 [degF] 79 /min 98 % 98 % 124 mm[Hg] 86 mm[Hg] RimmaMAXIMO Edwards [facility] 4 15:23:41 Date Recorded Body height Body mass index (BMI) Body weight Heart rate Systolic blood pressure Diastolic blood pressure Provider Name and Address Organization Details Last Updated DateTime 4 182.25 cm 31.9 kg/m2 552403. 18 g 76 /min 134 mm[Hg] 76 mm[Hg] Kristen Gordon [facility] 4 15:03:34 Social History Question Answer Notes LastModified by Organizat ion Details LastModified Time Tobacco Smoking Status Former Smoker Quit 2013 with [place], [facility] 13:55:33 Do You Have An Advance Directive? Yes [email or web address] Information not available 09/11/2022 What Is Your Level Of Alcohol Consumption? Moderate 6 Drinks On Weekend Information not available 10/10/2019 Do You Wear A Helmet When Biking? Yes Information not available 10/08/2014 What Is Your Level Of Caffeine Consumption? Moderate 3 Coffees Daily Information not available 10/10/2019 How Much Tobacco Do You Chew? None [email or web address] Information not available 07/16/2011 Are You Currently Employed? Yes Information not available 03/09/2022 What Type Of Diet Are You Following? REGULAR Fasting Diet Started 01/31/24 8 Hours Eating 16 Fasting. Information not available 03/23/2024 Which Illicit Or Recreational Drugs Have You Used? None Information not available 10/06/2018 Do You Or Have You Ever Used E-cigarettes Or Vape? Never Used Electronic Cigarettes Information not available 07/09/2020 Education 12 [email or web address] Information no t available 09/11/2022 What Is Your Occupation? [employer] [email or web address] Information not available 07/16/2011 Have There Been Any Changes To Your Family Or Social Situation? No Getting - 2021 Information not available 04/02/2023 When Did You Quit Smoking? 6-10yearssince lastcigarette Information not available 09/11/2022 How Many Days In The Past Year Have You Had A Heavy Drinking Consumption (4+ Female, 5+ Male)? 0 [email or web address] Information not available 09/11/2022 Are There Any Guns Present In Your Home? Yes [email or web address] Information not available 07/16/2011 Do You Use Insect Repellent Routinely? No Information not available 03/09/2022 Live Alone Or With Others? With Others [email or web address] Information not available 09/11/2022 CSRP - Narcotics No Information not available 10/08/2014 CSRP Contract Signed And Discussed No Information not available 10/08/2014 Does The Patient Have Difficulty Speaking Citizen Of [place]? No Information not available 06/27/2014 Does The Patient Have Difficulty Reading Citizen Of [place]? No Information not available 06/27/2014 Patient Has Health Care Proxy Signed And In Chart No Declines [email or web address] Information not available 08/24/2018 CSRP - Stimulants No Information not available 10/08/2014 CSRP - Suboxone No Informati on not available 09/02/2015 Marital Status [email or web address] Informatio n not available 09/11/2022 Mosquito Repellent Used Routinely Yes [email or web address] Information not available 09/11/2022 What Was The Date Of Your Most Recent Tobacco Screening? 05/16/2024 Information not available 05/16/2024 How Many Children Do You Have? 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 30ormorepackye ars 47 Information not available 09/02/2015 What Is Your Relationship Status? Information not available 03/09/2022 Do You Use Your Seat Belt Or Car Seat Routinely? Yes Information not available 03/09/2022 Seat Belts Used Routinely Yes [email or web address] Information not available 09/11/2022 Smoke Alarm In Home Yes [email or web address] Information not available 09/11/2022 Do You Have Smoke And Carbon Monoxide Detectors In Your Home? Yes Information not available 03/09/2022 Are You Passively Exposed To Smoke? No Information not available 03/09/2022 Do You Or Have You Ever Used Smokeless Tobacco? Never Used Smokeless Tobacco Information not available 07/09/2020 How Much Tobacco Do You Smoke? No Information not available 02/28/2015 What Types Of Sporting Activities Do You Participate In? None Information not available 10/06/2018 General Stress Level High [email or web address] Information not available 09/11/2022 Do You Use Any Illicit Or Recreational Drugs? No Information not available 07/01/2022 Do You Use Sunscreen Routinely? No Information not available 05/16/2024 Do You Or Have You Ever Used Any Other Forms Of Tobacco Or Nicotine? No [email or web address] Information not available 09/11/2022 How Many Days In The Past Year Have You Consumed 5 Or More Drinks? 0 Information not available 04/02/2023 Sex: Male Functional Status Question Answer Note LastModified by Organizat ion Details LastModified Time What is your exercise level? Occasional back pain makes it difficult Information not available 05/16/2024 Mental Status None recorded. Family History Relationship Description Onset Age of this Age Resolved Age Notes LastModified by Organization Details LastModified Time Brother Malignant tumor of prostate may Not available 2014 12:58:11 Notes:Brother-Prostate cance r discovered age 40. Htn in both parents. Father 2017 at 80 with lung cancer (asbestosis exposure)s Medical History Condition Response Chronic Neck Pain Y Myocardial Infarction Y Hypertension Y Chronic Back Pain Y Immunizations Vaccine Type Date Status Note Provider Nam e and Address Organization Details Recorded Time Td(adult) unspecified formulation 2 completed Not Available [facility] 07/15/2011 05:20:34 Tdap 4 completed Not Available [facility] 09/16/2019 02:34:51 Td (adult), 2 Lf tetanus toxoid, preservative free, adsorbed 4 completed Todd Reyes, DO [address] [place] [address], [id number], [facility] 05/16/2024 17:30:28 Past Encounters Encounter ID Performer Location Encounter Start Date Encounter Closed Date Diagnosis/Indication Diagnosis SNOMED-CT Code Diagnosis ICD10 Code Diagnosis Note [id number] [facility], OFFICE [address] [place] [address] 07/20/2000 10:00:00 09/19/2008 02:02:29 [id number] Radiology , [facility] [address] [place] [address] 12/23/2000 11:15:00 09/19/2008 02:02:29 [id number] [facility], [address]ICE [address] [place] [address] 12/23/2000 10:30:00 09/19/2008 02:02:29 [id number] [facility], [address] [place] [address] 04/05/2001 12:15:00 09/19/2008 02:02:29 [id number] Radiology , [facility] [address] [place] [address] 12/23/2000 00:00:00 09/19/2008 02:02:29 [id number] [facility], [address] [place] [address] 10/04/2001 11:30:00 09/19/2008 02:02:29 [id number] [facility], [address] [place] [address] 05/04/2002 11:45:16 09/19/2008 02:02:29 [id number] Radiology , [facility] [address] [place] [address] 05/04/2002 12:09:36 09/19/2008 02:02:29 [id number] Radiology , [facility] [address] [place] [address] 05/04/2002 00:00:00 09/19/2008 02:02:29 [id number] [facility], [address] [place] [address] 06/08/2002 11:59:00 09/19/2008 02:02:29 [id number] [facility], [address] [place] [address] 11/22/2002 08:46:58 09/19/2008 02:02:29 [id number] [facility], [address] [place] [address] 08/20/2003 14:52:56 08/21/2003 16:11:48 [id number] [facility], [address] [place] [address] 09/10/2003 15:27:22 09/11/2003 08:04:43 [id number] LUCIO [facility], [address] [place] [address] 11/12/2003 14:31:28 11/12/2003 17:34:18 [id number] [facility], [address] [place] [address] 11/22/2003 11:00:57 11/22/2003 15:00:01 [id number] LAB - [facility] [address] [place] [address] 11/22/2003 11:52:55 11/22/2003 11:53:11 [id number] [facility], [address] [place] [address] 03/13/2005 11:41:37 03/14/2005 10:58:29 [id number] LAB - [facility] [address] [place] [address] 03/13/2005 13:08:52 03/13/2005 13:09:30 [id number] [facility], [address] [place] [address] 08/07/2005 09:48:50 08/08/2005 13:35:10 [id number] LUCIO [facility], OFFICE [address] [facility] [place] [address] 09/09/2005 11:58:28 09/19/2008 02:02:29 [id number] LUCIO [facility], [address] [place] [address] 11/13/2005 12:20:32 11/16/2005 09:23:55 [id number] LAB - [facility] [address] [place] [address] 11/13/2005 13:16:54 11/13/2005 13:17:12 [id number] LUCIO [facility], [address] [place] [address] 01/14/2007 11:40:19 01/17/2007 12:17:10 [id number] LUCIO [facility], [address] [place] [address] 12/20/2007 11:35:44 09/19/2008 02:02:29 [id number] LAB - [facility] [address] [place] [address] 12/20/2007 12:31:37 12/20/2007 12:31:43 [id number] [facility], [address]ICE [address] [place] [address] 01/09/2008 13:30:04 09/19/2008 02:02:29 [id number] [facility], [address] [place] [address] 05/15/2008 10:44:20 09/19/2008 02:02:29 [id number] LAB - [facility] [address] [place] [address] 05/25/2008 11:29:53 05/25/2008 11:29:58 [id number] LUCIO [facility], OFFICE [address] [place] [address] 06/21/2008 11:12:42 09/19/2008 02:02:29 [id number] LUCIO [facility], OFFICE [address] [place] [address] 07/05/2008 11:41:33 09/19/2008 02:02:29 [id number] LUCIO [facility], OFFICE [address] [place] [address] 08/22/2008 14:14:40 09/19/2008 02:02:29 [id number] LUCIO [facility], [address] [place] [address] 08/31/2008 08:38:08 09/19/2008 02:02:29 [id number] Physical Therapy, [facility] [address] [place] [address] 09/03/2008 13:23:05 09/03/2008 16:11:51 [id number] Physical Therapy, [facility] [address] [place] [address] 09/05/2008 11:57:49 09/05/2008 13:07:17 [id number] LUCIO [facility], [address] [place] [address] 09/07/2008 14:48:38 09/19/2008 02:02:29 [id number] Physical Therapy, [facility] [address] [place] [address] 09/10/2008 12:55:48 09/10/2008 16:12:49 [id number] LUCIO [facility], OFFICE [address] [place] [address] 09/14/2008 14:38:11 09/19/2008 02:02:29 [id number] , [facility], OFFICE [address] [place] [address] 09/21/2008 12:12:06 10/02/2008 02:02:00 [id number] Radiology , [facility] [address] [place] [address] 10/31/2008 12:05:01 10/31/2008 16:09:08 [id number] Radiology , [facility] [address] [place] [address] 04/01/2009 16:25:58 04/08/2009 11:47:24 [id number] Radiology , [facility] [address] [place] [address] 09/20/2008 12:25:52 09/21/2008 09:23:13 [id number] Radiology , [facility] [address] [place] [address] 09/20/2008 00:00:00 06/27/2009 02:00:52 [id number] Radiology , [facility] [address] [place] [address] 10/31/2008 00:00:00 06/27/2009 02:00:52 [id number] Radiology , [facility] [address] [place] [address] 04/01/2009 00:00:00 06/27/2009 02:00:52 [id number] [facility], OFFICE [address] [place] [address] 07/09/2009 13:35:13 07/22/2009 16:33:09 [id number] Radiology , [facility] [address] [place] [address] 07/09/2009 14:28:23 07/12/2009 11:03:58 [id number] [facility], [address] [place] [address] 08/04/2010 08:18:28 09/02/2010 14:03:02 [id number] [facility], [address] [place] [address] 10/07/2010 13:31:45 10/09/2010 14:29:55 [id number] Nabil Mims MD [facility], [address] [place] [address] 07/04/2012 13:42:02 07/04/2012 14:26:20 [id number] Enedina Marino MA , [facility], [address] [place] [address] 07/11/2012 10:56:48 07/11/2012 12:11:42 [id number] Jacqueline Moss RN , [facility], [address] [place] [address] 10/03/2012 15:50:45 10/04/2012 12:51:04 [id number] Alexis Monahan MD Radiology , [facility] [address] [place] [address] 10/03/2012 16:51:32 10/03/2012 17:12:12 [id number] Jluis Laird MD Radiology , [facility] [address] [place] [address] 10/26/2012 12:57:15 10/26/2012 13:29:14 [id number] Nabil Mims MD , [facility], [address] [place] [address] 06/28/2013 11:55:48 07/04/2013 13:54:49 Essential hypertension 75842468 Impetigo 34224176 Low back pain 296609987 Fracture o f vertebral column without spinal cord injury 36666359 [id number] Enedina Marino MA , [facility], [address] [place] [address] 11/14/2013 13:42:26 11/14/2013 14:26:35 Low back pain 938420613 Myocardial infarction 82858589 Angina pectoris 565256343 Single cor onary vessel disease 957002919 [id number] Enedina Marino MA , [facility], [address] [place] [address] 06/27/2014 14:46:32 06/28/2014 10:10:57 Mixed hyperlipidemia 193598976 Single cor onary vessel disease 265088620 Myocardial infarction 26770059 Administra tion of diphtheria, pertussis, and tetanus vaccine 594020230 Impotence 331223730 Neck pain 36225187 Essential hypertension 01765448 [id number] [facility], [address] [place] [address] 10/08/2014 11:45:53 10/08/2014 12:41:21 Adult health examination 402362781 see Risk Assessment and Lifestyle Change Counseling section above Counseling [id number] Benign ess ential hypertension 9974700 Blood pressure at goal Myocardial infarction 38729289 Neck pain 00683250 Mixed hyperlipidemia 682645280 Impotence 369783515 Angina pectoris 823452950 Family his tory of malignant neoplasm of prostate 237193841 [id number] [facility], OFF[address] [place] [address] 12/07/2014 14:35:50 12/10/2014 12:58:23 Benign essential hypertension 8815510 Blood pressure at goal . [id number] [facility], [address] [place] [address] 01/18/2015 12:03:49 01/22/2015 08:29:56 Benign essential hypertension 7546509 Blood pressure at goal . Neck pain 21747801 [id number] [facility], [address] [place] [address] 02/28/2015 14:07:58 02/28/2015 14:41:08 Benign essential hypertension 7796243 Blood pressure at goal Mixed hyperlipidemia 304892472 Cholestero l is at goal Continue to work on diet and exercise as discussed Angina pectoris 778510276 Old myocar dial infarction 2219823 [id number] Nabil Mims MD , [facility], [address] [place] [address] 09/02/2015 13:53:23 09/02/2015 14:40:22 Benign essential hypertension 5863371 I10 Blood pressure at goal Mixed hyperlipidemia 267 273885 E78.2 Cholestero l is at goal Continue to work on diet and exercise as discussed Fracture o f vertebral column without spinal cord injury 91203876 T14.8 Angina pectoris 04718763 0 I20.9 Single cor onary vessel disease 095316055 I25.10 Old myocar dial infarction 4432495 I25.2 [id number] Mauri Palacios MD , [facility], [address] [place] [address] 02/19/2016 14:31:25 02/19/2016 15:28:45 Knee pain 90558499 M25.561 right mcl sprain- neoprene knee brace, heat, advill. if not better, consider knee immobilize r [id number] Nabil Mims MD , [facility], [address] [place] [address] 03/27/2016 14:02:18 03/27/2016 15:05:50 Adult health examination 062060378 Z00.00 see Risk Assessment and Lifestyle Change Counseling section above Counseling 238612040 Z71 .9 Mixed hyperlipidemia 267 228665 E78.2 Cholestero l is at goal. Continue to work on diet and exercise as discussed Benign ess ential hypertension 8646321 I10 Blood pressure at goal Single cor onary vessel disease 469792804 I25.10 Closed fra cture lumbar vertebra 391838675 S32.009D Myocardial infarction 22 091451 I21.3 Low back pain 074636875 M54.5 Knee pain 01962892 M25.5 61 [id number] Nabil Mims MD , [facility], [address] [place] [address] 09/07/2016 13:58:02 09/07/2016 14:42:03 Benign essential hypertension 1440836 I10 Blood pressure at goal Blood pressure NOT at goal. Mixed hyperlipidemia 267 630695 E78.2 Cholestero l is at goal. Continue to work on diet and exercise as discussed Single cor onary vessel disease 261350228 I25.10 Myocardial infarction 22 202625 I21.3 Angina pectoris 34475587 0 I20.9 Bilateral arthritis of knees 3952274217 [id number] M13.108 [id number] Nabil Mims MD , [facility], [address] [place] [address] 03/30/2017 14:39:22 03/30/2017 15:54:12 Adult health examination 354674819 Z00.00 see Risk Assessment and Lifestyle Change Counseling section above Counseling 336877065 Z71 .9 Benign ess ential hypertension 6090266 I10 Blood pressure at goal Mixed hyperlipidemia 267 839812 E78.2 Cholestero l is at goal Continue to work on diet and exercise as discussed Screening for malignant neoplasm of colon 188232279 Z12.11 Referral for a DIRECT booked colonoscop y. This patient is a healthy ASA Class 1 or 2 patient (only mild systemic disease), or a STABLE, well controlled insulin dependent diabetic. They do not have serious cardiac disease ie [place]/angiopl asty within 1 year, symptomati c CHF; renal failure with CKD 4 or 5; take Coumadin, Plavix, Aggrenox, etc. Umbilical hernia 2433653 07 K42.9 Single cor onary vessel disease 244080690 I25.10 Closed fra cture lumbar vertebra 729548802 S32.009D Myocardial infarction 22 478579 I21.3 Low back pain 226330302 M54.5 [id number] Nabil Mims MD , [facility], [address] [place] [address] 10/12/2017 13:55:08 10/12/2017 14:47:05 Benign essential hypertension 7510074 I10 Blood pressure at goal Single cor onary vessel disease 392665377 I25.10 Myocardial infarction 22 276412 I21.3 [id number] Nabil Mims MD , [facility], [address] [place] [address] 10/28/2017 15:44:23 10/29/2017 08:53:34 Colonoscopy abnormal 526808176 R93.3 [id number] Nabil Mims MD , [facility], [address] [place] [address] 04/19/2018 14:26:01 05/06/2018 11:57:46 Fever 152496436 R50.9 [id number] Nabil Mims MD , [facility], [address] [place] [address] 10/06/2018 14:43:16 10/06/2018 15:43:57 Adult health examination 150716287 Z00.00 see Risk Assessment and Lifestyle Change Counseling section above Counseling 892855577 Z71 .9 Depression screening 171 248710 Z13.89 depression screening tool administer ed, entered into emr, scored and discussed, time greater than 7.5 minutes Bilateral arthritis of knees [id number] 590473 M13.861 Benign ess ential hypertension 2194183 I10 Blood pressure at goal Single cor onary vessel disease 674857711 I25.10 Closed fra cture lumbar vertebra 142508790 S32.009D Myocardial infarction 22 181065 I21.3 Gastroesop hageal reflux disease 898410144 K21.9 Mixed hyperlipidemia 267 766791 E78.2 Cholestero l is at goal Continue to work on diet and exercise as discussed Low back pain 530538601 M54.5 [id number] Nabil Mims MD , [facility], [address] [place] [address] 03/30/2019 14:28:07 03/30/2019 15:13:25 Benign essential hypertension 6647236 I10 Mixed hyperlipidemia 267 691169 E78.2 Medial epicondylitis 532 95909 M77.02 Gastroesop hageal reflux disease 057666224 K21.9 [id number] Nabil Mims MD , [facility], [address] [place] [address] 06/12/2019 11:57:05 06/12/2019 12:29:50 Gastroesophageal reflux disease 881629958 K21.9 [id number] Jam Lemos MD , [facility], [address] [place] [address] 07/19/2019 11:28:34 07/19/2019 12:11:16 Benign essential hypertension 5712882 I10 BP at goal today at 130/82. Episode of HTN urgency two days ago. Went to ER. cardiac work-up wnl.Advise d pt to continue medication , get regular exercise, avoid salt in diet, and monitor BP at home and bring log to F/U in 2 weeks. Go to ER for CP, SOB, , visual changes. [id number] Jluis Laird MD , [facility], [address] [place] [address] 08/01/2019 11:29:10 08/01/2019 12:16:10 Benign essential hypertension 3945675 I10 BP slightly elevated today at 136/90.Asy mptomatic. Erratic readings at home d/t possible faulty cuff.Advis ed pt to continue medication , get regular exercise, avoid salt in diet.Will monitor at BP clinic and F/U in 3 weeks. [id number] Jluis Laird MD , [facility], [address] [place] [address] 09/01/2019 11:44:06 09/01/2019 13:10:16 Benign essential hypertension 1357804 I10 BP slightly elevated today at 144/88..As ymptomatic .Advised pt to continue medication , get regular exercise, avoid salt in diet.F/U in 1 month at [place]. [id number] Jluis Laird MD , [facility], [address] [place] [address] 10/10/2019 10:59:18 10/10/2019 11:46:41 Adult health examination 531199935 Z00.00 see risk assessment Counseling 926734957 Z71 .9 including cardiovasc ular risk reduction counseling Depression screening 171 843670 Z13.89 depression screening tool administer ed, entered into emr, scored and discussed, time greater than 7.5 minutes Screening for alcohol abuse 995616278 Z13.39 Essential hypertension 90434611 I10 Mixed hyperlipidemia 267 288483 E78.2 Cholestero l is at goal Continue to work on diet and exercise as discussedW Ill get labs in 3 months. Gastroesop hageal reflux disease 394862715 K21.9 Occasional flares. Uses famotidine with good effect, Discussed diet modificati on and benefits of weight loss. Sensation of irritation of eye proper 231267041 H57.89 x 1 year. Has not eye exam in 20 years since lasik surgery. Will give optometry referral. Myocardial infarction 22 889053 I21.9 No CP, VICK. BP at goal. Followed by Arsalan Plummer - next visit in 3 months. Benign ess ential hypertension 6148707 I10 BP at goal today. Advised pt to continue medication , avoid salt in diet, and get regular exercise Medial epi condylitis of right elbow joint 2997673566 95900 M77.01 Advised PT and elbow brace. Pt declines PT. Will try brace.F/U for worsening/ persisting sx. [id number] Elaine Kowalski MD , [facility], [address] [place] [address] 03/28/2020 14:08:28 04/01/2020 10:51:29 Closed fracture lumbar vertebra 364962061 S32.009A CHronic back pain with occasional radiculopa thy. Sees chiropract or with good effect. Requesting yearly FMLA paperwork be filled out. [id number] Jluis Laird MD , [facility], [address] [place] [address] 07/09/2020 13:48:59 07/10/2020 03:45:27 Mixed hyperlipidemia 960258964 Will get labs before [place] in 3 months. Encouraged healthy low fat diet and regular exercise. Benign ess ential hypertension 0046479 I10 BP at goal today. Advised pt to continue medication , avoid salt in diet, and get regular exercise Chronic back pain 388494 002 M54.30 intermitte nt shooting pain across mid back s/p lifting injury 5 months ago.Advise d PT however pt declines at this time. WIll research strengthen ing stretching exercises to do at home.WIll get xray and F/U in 1.5-2 months or sooner for worsening sx. [id number] Jluis Laird MD , [facility], [address] [place] [address] 08/13/2020 13:53:03 08/14/2020 11:02:25 Screening for disorder 469147185 Z11.59 Closed fra cture lumbar vertebra 762255640 S32.009A s/p lifting [address] Matos, neurosurge on who explained MRI results and did not think he was a candidate for surgery at this time. Recent BDT wnl. Advised rest, avoiding lifting, bending, straining. WIll consider PT in a few months. [id number] Rajwinder Ceballos PA-C , [facility], [address] [place] [address] 02/25/2021 13:46:29 02/26/2021 13:18:23 Adult health examination 339339580 Z00.00 see risk assessment Counseling 168861118 Z71 .9 including cardiovasc ular risk reduction counseling Depression screening 171 387962 Z13.31 depression screening tool administer ed, entered into emr, scored and discussed, time greater than 7.5 minutes Screening for alcohol abuse 696991172 Z13.39 see audit C Mixed hyperlipidemia 267 215753 E78.2 Cholestero l is at goalContin ue to work on diet and exercise as discussed Old myocar dial infarction 4643660 I25.2 2013. Asymptomat ic. BP at goal. Followed by Arsalan Plummer - overdue for visit - will schedule. Essential hypertension 89552255 I10 BP at goal today. Advised pt to continue medication , avoid salt in diet, and get regular exercise Gastroesop hageal reflux disease 448166636 K21.9 Flares with esophagiti s. Uses famotidine with good effect.Was scheduled for endoscopy but cancelled d/t COVID.Disc ussed diet modificati on and benefits of weight loss. [id number] Elaine Kowalski MD , [facility], [address] [place] [address] 08/20/2021 14:26:13 08/20/2021 14:56:02 Essential hypertension 00202646 I10 BP mildly elevated today. Followed by Dr. Reyna, Cardiologi , who started him on 5mg/d amlodipine at visit last month. (reviewed note.)Advi sed pt to continue medication , avoid salt in diet, get regular exercise, and keep cardiology apointment s. Mixed hyperlipidemia 267 742282 E78.2 Cholestero l is at goalContin ue to work on diet and exercise as discussed Old myocar dial infarction 7875534 I25.2 2013. Asymptomat ic. BP at goal. Followed by Arsalan Plummer - yonatan ice note from last month. Soft tissu e swelling of knee joint 516625748 M25.469 Advised RICE measures. RTC for worsening sx. Gastroesop hageal reflux disease 323095056 K21.9 Flares with esophagiti s. Uses famotidine prn with good effect.Was scheduled for endoscopy but cancelled d/t COVID.Disc ussed diet modificati on and benefits of weight loss. [id number] Todd Reyes DO , [facility], [address] [place] [address] 03/09/2022 14:43:12 03/09/2022 15:27:06 Adult health examination 763220708 Z00.00 see risk assessment Counseling 920875216 Z71 .9 including cardiovasc ular risk reduction counseling Depression screening 171 956172 Z13.31 depression screening tool administer ed, entered into emr, scored and discussed, time greater than 7.5 minutes Screening for alcohol abuse 764642379 Z13.39 see audit C Myocardial infarction 22 277198 I21.9 Stent placed 2013.BP at goal. No new/recent sx.Followe d by Arsalan Dash who is moving from area.Plans to find/sched ule with new cardiologi st. Benign ess ential hypertension 8448585 I10 BP at goal today. Advised pt to continue medication , avoid salt in diet, and get regular exercise Mixed hyperlipidemia 267 795456 E78.2 Cholestero l is at goalContin ue medication and to work on diet and exercise as discussed. Impaired f asting glycemia 353859267 R73.01 Gastroesop hageal reflux disease 722221220 K21.9 Uses famotidine prn with good effect.Dis cussed diet modificati on and benefits of weight loss. [id number] Tarun Sousa MD , [facility], [address] [place] [address] 07/01/2022 15:41:41 07/01/2022 17:04:07 Anxiety 45188997 F41.9 Significan tly worsend anxiety due to many life stressors currently. Excellent response to a friend's lorazepam. We discussed risks of chronic BZD use today. He declines a long-term SSRI or other medication .Will trial lorazepam for a short course.F/U in 2-3 weeks. Adjustment disorder 1722 6007 F43.20 As above. Benign ess ential hypertension 6072787 I10 Above goal today. F/U in 2-3 weeks to recheck. [id number] Tarun Sousa MD , [facility], [address] [place] [address] 07/15/2022 13:30:22 07/15/2022 13:59:51 Anxiety 38634535 F41.9 Improving. Continue sparing use of lorazepam. Adjustment disorder 1722 6007 F43.20 As above. Benign ess ential hypertension 9325139 I10 Improved today, nearly at goal. [id number] Todd Reyes DO , [facility], [address] [place] [address] 09/11/2022 14:27:38 09/11/2022 17:43:51 Essential hypertension 82743638 I10 Above goal today. Has appt in 2 weeks [facility] cardiology , will get rechecked then, he reports they manage his BP. F/u labs. Mixed hyperlipidemia 267 580170 E78.2 At goal, continue current regimen. F/u labs. Ex-smoker 1321824 Z87.89 1 Bilateral arthritis of knees 7463448496 332416 M13.861 Having oxford procedure soon. Gastroesop hageal reflux disease 696121712 K21.9 Has upcoming EGD. Myocardial infarction 22 599569 I21.9 Age 48, follows [facility] cardiology . S/p stent, on statin and ASA. Stress 26798194 Z73.3 Pt going through divorce. No longer using lorazepam. Patient ne w to provider [id number] 52275 Z76.89 Transfer from . [id number] Todd Reyes DO , [facility], [address] [place] [address] 01/01/2023 14:45:59 01/01/2023 16:37:22 Benign essential hypertension 1489487 I10 Above goal today. Pt has upcoming cardiac pre-op. Continue antihypert ensives. Bilateral arthritis of knees 8423741673 936895 M13.861 Having oxford procedure soon. Single cor onary vessel disease 944447837 I25.10 Stable, continue current regimen. Pre-surger y evaluation 524833017 Z01.818 Pt is mod risk for low risk procedure, class 1 per [facility]CRI. Mixed hyperlipidemia 267 851790 E78.2 At goal, continue current regimen. [id number] DO LUCIO Umaña, [facility], [address] [place] [address] 04/02/2023 14:45:11 04/02/2023 15:35:16 Adult health examination 862823590 Z00.00 Pts overall health is good. Reviewed labs. Next [place] in 1 year. Depression screening 171 412704 Z13.31 depression screening tool administer ed Screening for alcohol abuse 749637355 Z13.39 Alcohol use screening tool administer ed Screening for malignant neoplasm of prostate 700224696 Z12.5 PSA testing for ages 55-69 risks and benefits discussed {{patient declines testing te st ordered*}} . Benign ess ential hypertension 8446521 I10 Above goal today. Pt has upcoming cardiac pre-op. Continue antihypert ensives. Bilateral arthritis of knees 7371447177 523402 M13.861 Having oxford procedure soon. Gastroesop hageal reflux disease 151078769 K21.9 Following with GI. Mixed hyperlipidemia 267 855664 E78.2 At goal, continue current regimen. Myocardial infarction 22 641928 I21.9 Age 48, follows [facility] cardiology . S/p stent, on statin and ASA. Single cor onary vessel disease 841434182 I25.10 Stable, continue current regimen. See above. [id number] Radha Nicole MD , [facility], [address] [place] [address] 05/31/2023 10:14:43 05/31/2023 10:30:42 Vaccination not done 3349996825 9108 Z28.29 Patient declined the flu vaccine at this time. Skin tag 897146021 L91.8 can schedule removal with another provider if wishes Cellulitis 201341233 L03 .90 infection resolving after drainage. Suspect erythema from bandaid reactionno indication for abx [id number] MAURI HERNANDEZ DO , [facility], [address] [place] [address] 11/01/2023 10:54:49 11/01/2023 11:23:02 Epididymitis 06615478 N45.1 chronic epididymit is since having a vasectomy. Presents with testicular (R) discomfort consistent with prior episodes of epididymit is. Discussed workup to include urine studies to which patient was agreeable. Venereal d isease screening 213428463 Z11.3 STD screening given recent sexual encounter in [facility]. Reports protected sex however he has had some penile itching since the encounter. Benign ess ential hypertension 2718325 I10 Counseled patient on avoidance of NSAIDsLow sodium diet < 2000 mg/dayMoni tor BP at home and maintain log book. [id number] Todd Reyes DO , [facility], [address] [place] [address] 11/12/2023 14:25:47 11/12/2023 15:44:07 Ex-smoker 2696415 Z87.891 Cervical radiculopathy 72273837 M54.12 Will get EMG. Rotation to the right and extension reproduce sxs as well as flexion at the wrist.Shane Capone MD[address], [place] [address]. , Displaceme nt of cervical intervertebral disc without myelopathy 03234895 M50.20 See above. Nocturia 003658980 R35.1 Will refer to urology per patient request. Essential hypertension 74215753 I10 Above goal today. Continue current regimen. Does not appear to need additional medication at this time. Single cor onary vessel disease 604036443 I25.10 Stable, continue current regimen. See above. Mixed hyperlipidemia 267 859096 E78.2 At goal, continue current regimen. Will send labs to cardiologi . History of myocardial infarction 532314586 I25.2 Stable. Continue current reigmen. Follows with cardiology . [id number] Ruddy Calvin MD , [facility], [address] [place] [address] 03/23/2024 14:52:46 03/24/2024 10:09:06 Chest wall pain 418585385 R07.89 59-year-ol d male with a prior history of [place], CAD and hypertensi on complainin g of a well localized left lateral chest wall discomfort which radiates around to the front lower rib epigastric region. On and off for the last few months only getting worse since this weekend. Worse with deep breaths or certain movements. 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 Pain is worse at the end of his shift.He is concerned this might represent internal organ abnormalit ies. Physical exam: Stocky male in no distress. Vitals normal. No pain to AP and lateral chest wall compressio n. No skin changes. Lungs clear. Abdomen soft nontender in all quadrants. Reproducib le pain lateral around the eighth or ninth rib with some radiation forward especially when Supine and doing abdominal crunches. Reproducib le. Present plan: Musculoske letal pain, most likely due to physical labors. No imaging required. No lab studies needed. Reassuranc e this is not a sign of internal organ damage. Questions answered. Advised to modify his work behavior which might be causing this discomfort [id number] Todd Reyes DO , [facility], [address] [place] [address] 05/16/2024 14:43:15 05/18/2024 11:10:42 Adult health examination 048381061 Z00.00 Pts overall health is good. Reviewed labs. Next [place] in 1 year. Depression screening 171 329327 Z13.31 depression screening tool administer ed Screening for alcohol abuse 060102730 Z13.39 Alcohol use screening tool administer edPlease work on decreasing your etoh intake Screening for malignant neoplasm of prostate 461228488 Z12.5 If you have a prostate, the U.S. Preventive Services Task Force advises not to make a PSA test a part of the standard exam for ages 55-69. Instead they recommend the uncertaint ies about the test be discussed and ordered only if a patient still wants it. Over their lifetimes as many as 50% or more of persons with a prostate will develop prostate cancer but only 2% of them will of prostate cancer. For those who chose to be screened for prostate cancer, if 1000 are screened with a psa test over a 15 year period there might be 1-2 deaths prevented however 235 persons will have a biopsy with risk of infection, bleeding and pain, 100 will have their prostate removed by surgery or radiation treatments and 60-70 of those will suffer incontinen ce or impotence. There is also the risk of anesthesia or radiation complicati ons. For those over 70, prostate cancer screening offered no benefit and risked pain, worry, expense and possibly shorter life expectancy .has upcoming ultrasound with urology Single cor onary vessel disease 416883966 I25.10 Stable, continue current regimen.Fo maryg with cardiology . Mixed hyperlipidemia 267 675746 E78.2 At goal, continue current regimen. Following with cardiology . Gastroesop hageal reflux disease 577027680 K21.9 Following with GI. Improved after losing weight. Has not needed omeprazole . Benign ess ential hypertension 2052864 I10 Above goal today. continue antihypert ensives. Cough 01341027 R05.9 Cough now resolved. Degenerati on of cervical intervertebral disc 57134727 M50.30 Follows with ortho. Is waiting until progressio n of pain before surgical interventi on. 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 Continue current reigmen. Follows with cardiology . Polyp of colon 32233068 K63.5 Pt has upcoming sigmoidosc opy. Peripheral vascular disease 280591473 I73.9 Former smokerLDCT done in November Active or passive immunization 591248755 Z23 Health Concerns Section Related Observation LastModified by Organization Detai ls LastModified Time None Recorded Concern Status LastModified by Organization Details LastModified Time None Recorded Advance Directives Directive Y: Payers Encounter Date Sequence Insurance Name Policy Number Policy Becker Covered Member ID Becker Member ID Guarantor Name 05/31/2023 1 [place] [employer] [place] 112 Manjinder Lizarraga [id number] Manjinder Lizarraga 11/01/2023 1 [place] 112 Manjinder Lizarraga [id number] Manjinder Lizarraga 11/12/2023 1 [place] 112 Manjinder Lizarraga [id number] Manjinder Lizarraga 03/23/2024 1 [place] [employer] [place] Manjinder Lizarraga [id number] Manjinder Lizarraga 05/16/2024 1 [place] [employer] [place] 112 Manijnder Lizarraga [id number] Manjinder Lizarraga Notes Date Note Type Note Provider Name and Address Organization Details Recorded Time 3 text/html patient presents to skin tag or cysts under left armpit. Wondering if it's infected. Wednesday had some drainage & now looking better pt presents noting skin tag under right arm became red and swollen. Looked like pus so pt drained it on wednesday. Better now. Concerned needs abxno fever Radha Nicole MD [address] [place] [address], [phone], [facility] 05/31/2023 10:40:06 4 text/html 58 yo male with past medical history of vasectomy 20 years ago presenting with right testicular pain, swelling and tenderness. He reports chronic epididymitis since having vasectomy (~4-5 episodes per year). He also tells me that he was on vacation in [place] 2 weeks ago and had protected sex with unknown partner. Since that time he has had some penile itching which he thinks may just be his anxiety about the situation.ROS otherwise negative. MAURI HERNANDEZ DO [address] [place], [address], [facility] 11/02/2023 08:10:19 4 text/html VMG HyperlipidemiaReported bypatient.Control:well controlled; improved since last visit Compliance:compliant with medications; compliant with follow-up visits;noncompliant with diet Barriers to CareNo identified barriers to careVMG HypertensionReported bypatient.Notes:has not taken meds yet today, takes them at night before he goes to work around 5pm Patient presents for medical management of hypertension and hyperlipidemia. concerns: 1. 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 wants to see urology Dr. Fabio Newman-gets up q2 hours at night-was told prostate was enlarged during colonoscopy. went for CT and was not prostate issue 2018-getting up 3x per night, is a change from last year3. saw cardio yesterday was rx diuretic for elevated bp. pt reports he had stressful drive over Todd Reyes DO [address] [place] [address], [phone], [facility] 11/12/2023 15:10:20 4 text/html Left sided pain near rib cage. Radiates to mid stomach area. Comes and goes x 3-4 months. Worsening since last Wednesday. No falls or injuries. Stared a fasting diet. Lots of salads and fruits. Hurts to take a deep breath. Has not been taking pain relievers. Ruddy Calvin MD [address] [place] [address], [phone], [facility] 03/23/2024 17:40:40 4 text/html Physical Exam/MaleReported bypatient.PHAPatient is here for a Wellness Visit. He describes his health status as good. Patient's health is the same as last year.Risk Assessment and Lifestyle Change Counseling 50-64Reported bypatient.Coronary Artery Disease Risk Assessment:Family History of Coronary Artery Disease; No personal history of diabetes; No history of peripheral vascular disease, AAA, or carotid disease; No personal history of coronary artery disease Breast Cancer Risk Assessment:No family history of breast cancer; No history of breast cancer or dcis Colon Cancer Risk Assessment:Family history of colon polyps or colon cancer; Patient has higher than average risk for colon cancer; polyps Lung Cancer Risk Assessment:Never smoked;Former smoker quit within last 15 years; No asbestos exposure Fracture Risk Assessment:No unexplained fracture Cognitive/Behavioral Risk Assessment:No personal history of mental illness; No family history of mental illness Safety Risk Assessment:No evidence of abuse/neglect Diet:Counseled about appropriate portion size; Counseled about eating a diet low in trans and saturated fats and high in fiber, fruits and vegetables; Counseled about appropriate calcium intake and good dietary sources of calcium.; Counseled about decreasing carbohydrates; Counseled about decreasing salt in diet; Discussed the value of a Mediterranean diet , and eating more fruits and vegetables; regular diet Exercise counseling:Discussed the importance of daily physical activity; Discussed the importance of weight bearing exercise; PT 3x weekly for knee, then plans to go back to gym Safety:Counseled about protecting skin from the sun and lowering the risk of skin cancer; Counseled about avoiding excessive and unsafe alcohol intake; Counseled about safer sexual practice; Counseled about use of helmets for high velocity activiities; Counseled about home safety including use of smoke detectors, CO detectors, keeping home water temperature less than 120; Counseled about use of seat belts; An audit alcohol screening was performed and scored. Patient was asked about alcohol use. Advised about risks of alcohol. Personal risk was assessed. Patient agreed to plan and given information about available resources if needed. Discussion including screening and scoring greater than 7.5 minutes.VMG HyperlipidemiaReported bypatient.Control:well controlled; improved since last visit Compliance:compliant with medications; compliant with follow-up visits;noncompliant with diet Barriers to CareNo identified barriers to careVMG HypertensionReported bypatient.Notes:has not taken meds yet today, takes them at night before he goes to work around 5pm Presents for wvWould like lungs checked; was sick a month ago, had persistent cough which has subsided Todd Reyes, DO [address] [place] [address], [place], [phone], [facility] 05/16/2024 17:32:32
== END 2024-09-13 14:31 | disposition home or self-care (01) ==
PROVIDERS: PCP Family Medicine; Visit Provider Nurse Practitioner Family
DX: Z80.42 Family history of malignant neoplasm of prostate (principal); R35.1 Nocturia; N32.89 Other specified disorders of bladder; N40.0 Benign prostatic hyperplasia without lower urinary tract symptoms
CPT/HCPCS: 99214

== ENCOUNTER → 2024-09-13 13:44 | Outpatient (BNVA) | payer BC, SELFPAY | PROVIDERS: PCP Family Medicine; Visit Provider Nurse Practitioner Family | DX: R35.1 Nocturia (principal); N32.89 Other specified disorders of bladder; N40.0 Benign prostatic hyperplasia without lower urinary tract symptoms; Z80.42 Family history of malignant neoplasm of prostate | CPT/HCPCS: 51798 ==

== ENCOUNTER 2025-01-16 13:55 | Outpatient (AMB) | payer BC, SELFPAY ==
--- NOTE | 2025-01-16 13:56 | A.OFFVIS_ITS ---
Intake Visit Reasons: discuss sleep study results Intake Note: Patient presents today for tele visit follow up on: sleep study results Urology Med:None Antibiotic Allergy:None Blood Thinner: Aspirin Wool Fleece Sorter Required: No Accompanied by: Self / Same As Patient Allergies No Known Allergies Allergy (Verified 01/16/25 21:40) Medication List - Last Reconciled 01/16/25 by ANGELA Reis- amlodipine 10 mg PO DAILY aspirin (Adult Aspirin Regimen) 81 mg PO DAILY atorvastatin 80 mg PO DAILY losartan 100 mg PO DAILY HPI Comments Details: Majninder Leonardo is a very pleasant 59-year-old male patient of Dr. Reyes. He has a past medical history of arthritis, low-back pain, GERD, myocardial infarction, hypertension, tinnitus, and hyperlipidemia. He is being followed up on today via video telehealth to discuss previous sleep study results. 04/22 sleep study report notes VANDANA, very mild, recommendations for conservative measures such as weight reduction and position therapy for treatment planning. He does continue to report episodes of nocturia however feels he has been managing well independently. Previous workup has also included a retroperitoneal ultrasound 06/22 noting bilateral kidneys with no calculi or hydronephrosis. The bladder is well distended. Mild diffuse trabeculations of the bladder wall. Bilateral jets are demonstrated. Pre void bladder volume is approximately 465 mL. Postvoid bladder volume is approximately 60 mL. The prostate gland is enlarged with a volume of approximately 57 mL. He reports he continues to intentionally lose weight and feels this is also been helpful. He discusses his change in hours at work in his now working 2nd shift. He discusses how busy is attempting to build his new home. He does report a family history of prostate cancer. PSA 04/22 2.1. He denies urinary urgency, urinary frequency, incontinence, hematuria, dysuria, foul smelling urine, changes to urinary stream, flank pain, fever, and or chills. We discussed bladder trabeculations and enlarged prostate. We discussed further treatment options and risks and benefits of these treatment options. Patient would like to continue with surveillance monitoring at this time as he does not feel he has any bothersome urinary issues or concerns. He otherwise denies any other issues or concerns. [facility] Medical History Allergic arthritis of both knees Closed fracture of lumbar vertebra Low back pain Gastroesophageal reflux Single vessel coronary disease Myocardial infarction Benign essential hypertension Tinnitus Mixed hyperlipidemia Family History Brother Prostate cancer Social History Patient Tobacco Use Status: Former Tobacco user Review of Systems Const Reports no additional complaints Eyes Reports no additional complaints ENT Reports no additional complaints Card Reports as per HPI Resp Reports no additional complaints GI Reports as per HPI Reports as per HPI Musc Reports as per HPI Neuro Reports no additional complaints Psych Reports no additional complaints Endo Reports no additional complaints Gato/Lymph Reports no additional complaints Aller/Immun Reports no additional complaints Physical Exam Const General: cooperative, healthy appearing, comfortable, no acute distress, well developed, alert and awake Orientation/consciousness: patient oriented x3 Resp Effort & Inspection: normal respiratory effort and able to speak in complete sentences Neuro General: patient oriented x3 Psych Appearance: grossly normal and well kempt Speech and movement: Clear speech present Attitude: cooperative Thought process: Normal thought process present Thought content: Normal thought content present Insight: Fair insight present (Psych) Judgement: Fair judgement present (Psych) Telehealth Telehealth Telehealth Platform: Telephone Location of provider rendering services: practice address Location of patient: address on file Patient Identification confirmed using: Name, : Yes Telehealth method: video Patient verbally consented to treatment: Yes Patient verbally consented to billing insurance company: Yes Patient informed of any privacy concerns related to visit: Yes Minutes spent on Phone/Video with Pt.: 15 Assessment & Plan Assessment & Plan (1) Enlarged prostate: Code(s): N40.0 - Benign prostatic hyperplasia without lower urinary tract symptoms Category: Medical (2) Bladder trabeculation: Code(s): N32.89 - Other specified disorders of bladder Category: Medical (3) Family history of prostate cancer: Code(s): Z80.42 - Family history of malignant neoplasm of prostate Category: Medical (4) Nocturia: Code(s): R35.1 - Nocturia Category: Medical Plan Sleep study results were reviewed with the patient today; as noted above. We discussed further treatment options and risks and benefits of these treatment options. Will continue with surveillance monitoring at this time. We discussed importance of surveillance monitoring giving patient's family history of prostate cancer. He currently denies any bothersome urinary issues or concerns. He reports be happy with current voiding parameters. Will obtain PSA in 6 months. Follow-up in 6 months with PSA and PVR; or sooner with any issues, concerns, and or questions. Orders: Orders Prostate Specific Antigen 6 Months N32.89 - Other specified disorders of bladder, N40.0 - Benign prostatic hyperplasia without lower urinary tract symptoms, R35.1 - Nocturia, Z80.42 - Family history of malignant neoplasm of prostate Patient Instructions: The patient had an opportunity to ask questions regarding the treatment plan. All questions were answered. Physical exam, labs, and imaging were discussed and reviewed in detail. As well as risks, benefits, and discussion of treatment choices. No major barriers to understanding were identified. The patient expressed understanding and agreement with the above treatment plan. The patient was made aware they should contact our office by phone for worsening of their current condition, the appearance of new symptoms, or with any questions or concerns. Compliance is encouraged with any medications and follow up testing that is ordered. It is a privilege to be allowed the opportunity to participate in? your urological care.? Again, if you have any questions or concerns If you have any questions or concerns please do not hesitate to contact me. The office is [phone]. This note is constructed using voice recognition software. While every effort has been made to ensure accuracy interceptor operator errors may have been included. Yours sincerely, JOSIAS Reis Coding Level of Care Code Tele Est Pt Level 3 (94926) Diagnoses Enlarged prostate N40.0 Bladder trabeculation N32.89 Family history of prostate cancer Z80.42 Nocturia R35.1
--- OUTSIDE RECORDS SUMMARY | 2025-01-16 15:16 | XMS_ITS | Data Portability ---
Author Organization [facility], [facility] Address [address] [place] [address] Care Team Providers Care [employer] W[employer] Marker Name Role Phone CHAPARRITA PEREZEMY OTHER EUGENIO CARY Echocardiograph Technician TODD REYES Primary Care Provider [phone] [facility] Tool Crib Supervisor DREA BATES Urologist Assessment Encounter Date Assessment Date Assessment LastModified by Organization Details LastModified Time 11/14/2024 11/14/2024 Assessment and Plan Hypertension Blood pressure variable; clinic reading normal but higher at home, possibly due to stress and pain vs inaccurate monitor. Weight loss ongoing, plans for gym routine. - Monitor blood pressure at home and send in readings if abnormal. may need to bring home monitor in for comparison - Consider additional antihypertensive medication if elevated. - Encourage weight loss and exercise. Cervical Radiculopathy Chronic neck pain with radicular symptoms, likely from herniated discs and bone spurs. Managed conservatively, surgery deferred. - Continue conservative management unless symptoms worsen. - Consider surgical consultation if symptoms worsen. Shoulder Pain Intermittent pain likely due to repetitive motion and strain, possibly involving rotator cuff. - Monitor symptoms, consider orthopedist follow-up if persistent. - Consider cortisone injection if needed. Benign Prostatic Hyperplasia (BPH) Enlarged prostate with normal PSA, suggesting BPH. Family history of prostate cancer noted. - Order PSA test. - Follow up with urologist as needed. General Health Maintenance Routine lab work needed. - Order labs: cholesterol, kidney function, electrolytes, blood sugar, liver function tests. Follow-up Scheduled physical in May, pending urologist follow-up and sleep study results. - Schedule follow-up for physical in May. - Follow up with urologist regarding PSA and sleep study results. 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 Present since 2001, neurosurgical consultations advised against surgery unless symptoms become persistent and unmanageable. Concerns about symptom exacerbation due to upcoming physical activities related to building a house were discussed. - Update medical records with current documentation - Complete and fax paperwork by the specified deadline [email or web address] Not available 11/28/2024 17:31:01 Plan of Treatment Reminders Order Date Submit Date Provider Last Modified By Organization Details Last Modified Time Details Appointments LAB Follow- Up 2024 02:30P M [facility] Lab Not available Not available Not available [facility] s Visit 30 2024 02:00P M Todd Reyes, DO Not available Not available Not available Lab lipid panel, serum 2024 025 [facility], [address] [place] [address], [address], 11/16/2024 14:05:13 CMP, serum or plasma 2024 025 [facility], [address] [place] [address], [address], 11/16/2024 14:05:12 PSA, serum or plasma 2024 025 [facility], [address] [place] [address], [address], 11/15/2024 12:35:[address] referra l 2023 024 BRENT Newman MD, [address] [place] [address] , [facility] [address], [place], [address], 01/12/2024 22:33:57 Procedures nerve conduct ion study/E MG, upper extremi ty (PROC) - emg ~ 90% of the time it's on the right but 10% of the time he DOES have it on the left side 2023 024 zaida Capone MD, [address] [place], [address], 01/11/2024 12:26:06 Surgeries None recorde d. Imaging LDCT, chest, for lung cancer screeni ng 2023 024 BRENT [facility], [address] [place], [address], 12/21/2023 09:23:45 Medication Orders None recorde d. Patient TargetsNo targets recorded. Patient InstructionsNo instructions recorded. Reason for Referral Urologist Referral for Noctu josé miguel Referring Physician: Todd Reyes, Family Medicine, Encounter Date: 11/12/2023 Results Created Date Observation Date Name Description Value Unit Range Abnormal Flag Note LastModifiedBy Organization Detail LastModifiedTime 11/01/1911/02/2023 URINA LYSIS color YELLOW yellow Not Available [address], [address], 11/02/2023 09:10:10 11/01/19 24 11/02/2023 URINA LYSIS clarity SLIGHT LY CLOUDY clear Not Available [address], [address], 11/02/2023 09:10:10 11/01/19 24 11/02/2023 URINA LYSIS glucose NEGATI VE negati ve Not Available [address], [address], 11/02/2023 09:10:10 11/01/19 24 11/02/2023 URINA LYSIS bilirubin NEGATI VE negati ve Not Available [address], [address], 11/02/2023 09:10:10 11/01/19 24 11/02/2023 URINA LYSIS ketones NEGATI VE negati ve Not Available [address], [address], 11/02/2023 09:10:10 11/01/19 24 11/02/2023 URINA LYSIS specific gravity 1.025 1.001- 1.035 Not Available [address], [address], 11/02/2023 09:10:10 11/01/19 24 11/02/2023 URINA LYSIS pH 5.5 5.0-8. 0 Not Available [address], [address], 11/02/2023 09:10:10 11/01/19 24 11/02/2023 URINA LYSIS protein NEGATI VE negati ve Not Available [address], [address], 11/02/2023 09:10:10 11/01/19 24 11/02/2023 URINA LYSIS urobilinogen 0.2 E.U./D L <1.0 Not Available [address], [address], 11/02/2023 09:10:10 11/01/19 24 11/02/2023 URINA LYSIS nitrates NEGATI VE negati ve Not Available [address], [address], 11/02/2023 09:10:10 11/01/19 24 11/02/2023 URINA LYSIS blood NEGATI VE negati ve Not Available [address], [address], 11/02/2023 09:10:10 11/01/19 24 11/02/2023 URINA LYSIS leukocytes NEGATI VE negati ve Not Available [address], [address], 11/02/2023 09:10:10 11/01/19 24 11/02/2023 URINE , MICRO SCOPI C WBC 0-2 hpf 0-4/hp f Not Available [address], [address], 11/02/2023 09:24:00 11/01/19 24 11/02/2023 URINE , MICRO SCOPI C RBC 0-2 hpf 0-2/hp f Not Available [address], [address], 11/02/2023 09:24:00 11/01/19 24 11/02/2023 URINE , MICRO SCOPI C bacteria 3+ none seen Not Available [address], [address], 11/02/2023 09:24:00 11/01/19 24 11/02/2023 URINE , MICRO SCOPI C yeast NONE SEEN none seen Not Available [address], [address], 11/02/2023 09:24:00 11/01/19 24 11/02/2023 URINE , MICRO SCOPI C squamous epithelial cells 1 hpf 0-5 Not Available [address], [address], 11/02/2023 09:24:00 11/01/19 24 11/02/2023 URINE , MICRO SCOPI C calcium oxalate crystals TRACE none seen Not Available [address], [address], 11/02/2023 09:24:00 11/01/19 24 11/02/2023 URINE , MICRO SCOPI C mucous 1+ none seen Not Available [address], [address], 11/02/2023 09:24:00 11/01/19 24 11/02/2023 BASIC METAB OLIC PANEL glucose 125 mg/dL 70-100 high Not Available [address], [address], 11/02/2023 09:47:28 11/01/19 24 11/02/2023 BASIC METAB OLIC PANEL BUN 14 mg/dL 7-18 Not Available [address], [address], 11/02/2023 09:47:28 11/01/19 24 11/02/2023 BASIC METAB OLIC PANEL creatinine 0.9 mg/dL 0.8-1. 3 Not Available [address], [address], 11/02/2023 09:47:28 11/01/19 24 11/02/2023 BASIC METAB OLIC PANEL B/C 15.6 ratio Not Available [address], [address], 11/02/2023 09:47:28 11/01/19 24 11/02/2023 BASIC METAB [...] be used in pregn dona. Not Available [address], [address], 11/02/2023 09:47:28 11/01/19 24 11/02/2023 BASIC METAB OLIC PANEL sodium 140 mmol/ L 136-14 5 Not Available [address], [address], 11/02/2023 09:47:28 11/01/19 24 11/02/2023 BASIC METAB OLIC PANEL potassium 4.0 mmol/ L 3.5-5. 1 Not Available [address], [address], 11/02/2023 09:47:28 11/01/19 24 11/02/2023 BASIC METAB OLIC PANEL chloride 102 mmol/ L 96-107 Not Available [address], [address], 11/02/2023 09:47:28 11/01/19 24 11/02/2023 BASIC METAB OLIC PANEL anion gap 11.6 5.0-15 .0 Not Available [address], [address], 11/02/2023 09:47:28 11/01/19 24 11/02/2023 BASIC METAB OLIC PANEL CO2 26 mmol/ L 21-32 Not Available [address], [address], 11/02/2023 09:47:28 11/01/19 24 11/02/2023 BASIC METAB OLIC PANEL calcium 9.4 mg/dL 8.5-10 .3 Not Available [address], [address], 11/02/2023 09:47:28 11/01/19 24 11/02/2023 LIPID PANEL cholesterol 146 mg/dL <200 mg/dl Tamar able 200-2 39 mg/dl Borde rline High >240 mg/dl High Not Available [address], [address], 11/02/2023 09:47:30 11/01/19 24 11/02/2023 LIPID PANEL triglyceride s 89 mg/dL <150 mg/dL Nikki l 150-1 99 mg/dL Borde rline High 200-4 99 mg/dL High >500 mg/dL Very High Not Available [address], [address], 11/02/2023 09:47:30 11/01/19 24 11/02/2023 LIPID PANEL direct HDL 54 mg/dL <40 mg/dl - Major Risk for CHD >60 mg/dl - Negat anish Risk for CHD Not Available [address] [place], [address], 11/02/2023 09:47:30 11/01/19 24 11/02/2023 DIREC T LDL direct LDL 70 mg/dL RISK CATEG ORY LDL GOAL _ CHD or CHD Risk Equiv alent s <100 mg/dl (10-y ear risk >20%) 2+ Risk Facto rs <130 mg/dl (10-y ear risk <= 20%) 0-1 Risk Facto r? <160 mg/dl ? Almos t all peopl e with 0-1 risk facto r have a 10 year risk <10%, thus 10 year risk asses ment in peopl e with 0-1 risk facto r is not neces jonas. Not Available [facility] [address] [place], [address], 11/02/2023 09:47:32 11/01/19 24 11/02/2023 HEPAT ITIS B SURFA CE AB IMMUN ITY, QN hepatitis B surface Ab immunity, qn 25 mIU/m L > or = 10 normal PATIE NT HAS IMMUN ITY TO HEPAT ITIS B VIRUS . For addit ional infor amy hahn refer to http: //[facility] lesvia arellano stdia gnbrady ics.c om/fa q/FAQ 105 (This link is being provi ded for infor monica may/ educa yulia l purpo ses only) . Not Available [facility] [place] [facility] [address], [place], [address], 11/02/2023 10:23:52 11/01/19 24 11/02/2023 HEPAT ITIS B SURFA CE ANTIG EN W/REF L CONFI RM hepatitis B surface antigen NON-RE ACTIVE non-re active normal For addit ional infor amy hahn e refer to http: //[facility] catio n.que stdia gnost ics.c om/fa q/FAQ 202 (This link is being provi ded for infor matio nal/ educa yulia l purpo ses only. ) Not Available [facility] [place] [facility] [address], [place], [address], 11/02/2023 10:23:53 11/01/19 24 11/02/2023 HIV 1/2 [...] state law prohi bits you from zahra jasso er discl osure of the infor matio [...] matio n pleas e refer to http: //[facility] lesvia bright.que stdia gnost ics.c om/fa q/FAQ 106 (This link is being provi ded for infor matio nal/ educa yulia l purpo ses only. ) The perfo rmanc e of this assay has not been clini sara valid ated in patie nts less than 2 years old. Not Available [facility] [place] [facility] [address], [place], [address], 11/02/2023 10:23:55 11/01/19 24 11/02/2023 HEPAT ITIS [...] a test for HCV RNA (test code 58947 ) is sugjosue leo. For addit ional infor monica reyes e refer to http: //[facility] lesvia arellano stdia gnost ics.c om/fa q/FAQ 22v1 (This link is being provi ded for infor monica may/ educa yulia l purpo ses only. ) Not Available [facility] [address] [place] [address], [address], 11/02/2023 10:23:56 11/01/19 24 11/03/2023 CHLAM YDIA/ GC, URINE SURESH N. gonorrhoeae GC NEG negati ve normal Not Available [address], [address], 11/03/2023 14:37:21 11/01/19 24 11/03/2023 CHLAM YDIA/ GC, URINE SURESH C. trachomatis CT NEG negati ve normal Not Available [address], [address], 11/03/2023 14:37:21 11/01/19 24 11/03/2023 MYCOP LASMA GENIT ALIUM , URINE SURESH mycoplasma genitalium NEGATI VE negati ve normal Not Available [address], [address], 11/03/2023 14:37:22 11/01/19 24 11/04/2023 CULTU RE, URINE , ROUTI NE culture, urine, routine CULTU RE, URINE , ROUTI NE Micro Numbe r: [id number] Test Statu s: Final Speci men Sourc e: Urine Speci men Quali ty: Adequ ate Resul t: No Growt h Not Available [facility] [address], [place], [address], 11/04/2023 10:13:31 11/01/1911/04/2023 RPR RPR NON-RE ACTIVE nonrea ctive Not Available [address], [address], 11/04/2023 15:26:14 04/20/20 24 04/21/2024 PSA PSA 2.14 NG/mL 0.00-4 .00 Not Available [address], [address], 04/21/2024 15:03:58 05/03/20 24 05/05/2024 BASIC METAB OLIC PANEL glucose 100 mg/dL 70-100 Not Available [address], [address], 05/05/2024 14:09:05 05/03/20 24 05/05/2024 BASIC METAB OLIC PANEL BUN 14 mg/dL 7-18 Not Available [address], [address], 05/05/2024 14:09:05 05/03/20 24 05/05/2024 BASIC METAB OLIC PANEL creatinine 0.9 mg/dL 0.8-1. 3 Not Available [address], [address], 05/05/2024 14:09:05 05/03/20 24 05/05/2024 BASIC METAB OLIC PANEL B/C 15.6 ratio Not Available [address], [address], 05/05/2024 14:09:05 05/03/20 24 05/05/2024 BASIC METAB OLIC PANEL GFR >=60ML /MIN [...] be used in pregn dona. Not Available [address], [address], 05/05/2024 14:09:05 05/03/2005/05/2024 BASIC METAB OLIC PANEL sodium 140 mmol/ L 136-14 5 Not Available [address], [address], 05/05/2024 14:09:05 05/03/20 24 05/05/2024 BASIC METAB OLIC PANEL potassium 4.8 mmol/ L 3.5-5. 1 Not Available [address], [address], 05/05/2024 14:09:05 05/03/20 24 05/05/2024 BASIC METAB OLIC PANEL chloride 103 mmol/ L 96-107 Not Available [address], [address], 05/05/2024 14:09:05 05/03/20 24 05/05/2024 BASIC METAB OLIC PANEL anion gap 8.4 5.0-15 .0 Not Available [address], [address], 05/05/2024 14:09:05 05/03/20 24 05/05/2024 BASIC METAB OLIC PANEL CO2 29 mmol/ L 21-32 Not Available [address], [address], 05/05/2024 14:09:05 05/03/20 24 05/05/2024 BASIC METAB OLIC PANEL calcium 8.8 mg/dL 8.5-10 .3 Not Available [address], [address], 05/05/2024 14:09:05 05/03/20 24 05/05/2024 LIPID PANEL cholesterol 146 mg/dL <200 mg/dl Tamar able 200-2 39 mg/dl Borde rline High >240 mg/dl High Not Available [address], [address], 05/05/2024 14:09:06 05/03/20 24 05/05/2024 LIPID PANEL triglyceride s 90 mg/dL <150 mg/dL Nikki l 150-1 99 mg/dL Borde rline High 200-4 99 mg/dL High >500 mg/dL Very High Not Available [address], [address], 05/05/2024 14:09:06 05/03/20 24 05/05/2024 LIPID PANEL direct HDL 61 mg/dL <40 mg/dl - Major Risk for CHD >60 mg/dl - Negat anish Risk for CHD Not Available [address], [address], 05/05/2024 14:09:06 05/03/20 24 05/05/2024 LDL - CALCU LATED LDL - calculated 67 RISK CATEG ORY LDL GOAL _ CHD or CHD Risk Equiv alent s <100 mg/dl (10-y ear risk >20%) 2+ Risk Facto rs <130 mg/dl (10-y ear risk <= 20%) 0-1 Risk Facto r? <160 mg/dl ? Almos t all peopl e with 0-1 risk facto r have a 10 year risk <10%, thus 10 year risk asses ment in peopl e with 0-1 risk facto r is not necstephan mcdaniel. Not Available [address], [address], 05/05/2024 14:09:06 11/15/19 25 11/15/2024 PSA PSA 1.80 NG/mL 0.00-4 .00 Not Available [address], [address], 11/15/2024 12:35:13 11/15/19 25 11/16/2024 COMP. METAB OLIC PANEL glucose 102 mg/dL 70-100 high Not Available [address], [address], 11/16/2024 14:05:12 11/15/19 25 11/16/2024 COMP. METAB OLIC PANEL BUN 13 mg/dL 7-18 Not Available [address], [address], 11/16/2024 14:05:12 11/15/19 25 11/16/2024 COMP. METAB OLIC PANEL creatinine 0.9 mg/dL 0.8-1. 3 Not Available [address], [address], 11/16/2024 14:05:12 11/15/19 25 11/16/2024 COMP. METAB OLIC PANEL B/C 14.4 ratio Not Available [address], [address], 11/16/2024 14:05:12 11/15/19 25 11/16/2024 COMP. METAB OLIC PANEL GFR >=60ML /MIN mL/mi [...] Colla borat ion (CKD- EPI) Equat ion (Inke r et. al 2020) as recom sy d by the Edita Ace haydenandres . eGFR is based on age, serum creat inine , and sex. CKD-E PI does not calcu late eGFR by race, does not apply to child annabella (age <18 years ), and shoul d not be used in pregn dona. Not Available [address], [address], 11/16/2024 14:05:12 11/15/19 25 11/16/2024 COMP. METAB OLIC PANEL sodium 141 mmol/ L 136-14 5 Not Available [address], [address], 11/16/2024 14:05:12 11/15/19 25 11/16/2024 COMP. METAB OLIC PANEL potassium 4.8 mmol/ L 3.5-5. 1 Not Available [address], [address], 11/16/2024 14:05:12 11/15/19 25 11/16/2024 COMP. METAB OLIC PANEL chloride 103 mmol/ L 96-107 Not Available [address], [address], 11/16/2024 14:05:12 11/15/19 25 11/16/2024 COMP. METAB OLIC PANEL anion gap 9.2 5.0-15 .0 Not Available [address], [address], 11/16/2024 14:05:12 11/15/19 25 11/16/2024 COMP. METAB OLIC PANEL CO2 29 mmol/ L 21-32 Not Available [address], [address], 11/16/2024 14:05:12 11/15/19 25 11/16/2024 COMP. METAB OLIC PANEL calcium 9.4 mg/dL 8.5-10 .3 Not Available [address], [address], 11/16/2024 14:05:12 11/15/19 25 11/16/2024 COMP. METAB OLIC PANEL total protein 7.8 g/dL 6.4-8. 2 Not Available [address], [address], 11/16/2024 14:05:12 11/15/19 25 11/16/2024 COMP. METAB OLIC PANEL albumin 4.1 g/dL 3.4-5. 0 Not Available [address], [address], 11/16/2024 14:05:12 11/15/19 25 11/16/2024 COMP. METAB OLIC PANEL globulin 3.7 g/dL Not Available [address], [address], 11/16/2024 14:05:12 11/15/19 25 11/16/2024 COMP. METAB OLIC PANEL A/G 1.1 ratio 0.8-2. 0 Not Available [address], [address], 11/16/2024 14:05:12 11/15/19 25 11/16/2024 COMP. METAB OLIC PANEL total bilirubin 0.80 mg/dL 0.00-1 .00 Not Available [address], [address], 11/16/2024 14:05:12 11/15/19 25 11/16/2024 COMP. METAB OLIC PANEL AST 23 U/L 0-37 Not Available [address], [address], 11/16/2024 14:05:12 11/15/19 25 11/16/2024 COMP. METAB OLIC PANEL ALT 57 U/L 6-63 Not Available [address], [address], 11/16/2024 14:05:12 11/15/19 25 11/16/2024 COMP. METAB OLIC PANEL alk. phos. 78 U/L 50-136 Not Available [address], [address], 11/16/2024 14:05:12 11/15/19 25 11/16/2024 LIPID PANEL cholesterol 149 mg/dL <200 mg/dl Tamar able 200-2 39 mg/dl Borde rline High >240 mg/dl High Not Available [address], [address], 11/16/2024 14:05:12 11/15/19 25 11/16/2024 LIPID PANEL triglyceride s 83 mg/dL <150 mg/dL Nikki l 150-1 99 mg/dL Borde rline High 200-4 99 mg/dL High >500 mg/dL Very High Not Available [address], [address], 11/16/2024 14:05:12 11/15/19 25 11/16/2024 LIPID PANEL direct HDL 64 mg/dL <40 mg/dl - Major Risk for CHD >60 mg/dl - Negat anish Risk for CHD Not Available [address], [address], 11/16/2024 14:05:12 11/15/19 25 11/16/2024 DIREC T LDL direct LDL 72 mg/dL RISK CATEG ORY LDL GOAL _ CHD or CHD Risk Equiv alent s <100 mg/dl (10-y ear risk >20%) 2+ Risk Facto rs <130 mg/dl (10-y ear risk <= 20%) 0-1 Risk Facto r? <160 mg/dl ? Almos t all peopl e with 0-1 risk facto r have a 10 year risk <10%, thus 10 year risk asses ment in peopl e with 0-1 risk facto r is not neces jonas. Not Available [facility] [address] [facility], [place], [address], 11/16/2024 14:05:13 12/20/19 24 12/20/2023 LDCT, chest , for lung cance r scree dai No observ ation record ed. BRENT [facility] [address] [place], [address], 01/07/2024 16:34:28 01/21/20 24 01/20/2024 nerve condu ction study No observ ation record ed. [address] [facility], [place], [address], 02/12/2024 11:31:00 08/22/20 24 06/21/2024 US, renal No observ ation record ed. [address] [facility], [place], [address], 08/31/2024 21:52:42 Result Notes None recorded. 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 Reason: historic valery Reyes, [address] [place], [place] [address], [address], [facility] 4 15:22:32 Single coronary vessel disease 591853452 Active Nabil Mims MD [address] [place], [place] [address], [address], [facility] 6 14:59:00 Benign essentia l hyperten olegario 7212472 Active Nabil Mims MD [address] [place], [place] [address], [address], [facility] 6 14:58:59 Bilatera l arthriti s of knees 18229007908 99197 Active 2016 Nabil Mims MD [address] [place], [place] [address], [address], [facility] 7 14:41:43 Mixed hyperlip idemia 924846992 Active 2007 Johana Platt [facility] 6 14:39:15 Precordi al pain 45412417 Completed 200008/17/2010 Nabil Mims MD [address] [place], [place] [address], [address], [facility] 6 14:07:56 Gastroes ophageal reflux disease 941100937 Active 2007 Nabil Mims MD [address] [place] [address] [place], [address], [facility] 6 14:07:56 Hordeolu m 300764495 Completed 200208/17/2010 Nabil Mims MD [address] [place], [place] [address], [address], [facility] 6 14:07:56 Increase d frequenc y of urinatio n 976580319 Completed 200708/17/2010 Nabil Mims MD [address] [place], [place] [address], [address], [facility] 6 14:07:56 Tobacco user 303113683 Completed 200602/28/2015 Quit October 2013 Nabil Mims MD [address] [place], [place] [address], [address], [facility] 6 14:07:55 Neck pain 45476181 Completed 200107/19/2013 Nabil Mims MD [address] [place] [address] [place], [address], [facility] 6 14:07:56 Vertigin ous syndrome 61714672 Completed 200708/17/2010 Nabil Mims MD [address] [place] [address] [place], [address], [facility] 6 14:07:56 Sprain of spinal ligament 332674821 Completed 200208/17/2010 Nabil Mims MD [address] [place], [place] [address], [address], [facility] 6 14:07:56 Testicul ar hypofunc tion 995315199 Completed 200508/17/2010 Nabil Mims MD [address] [place] [address] [place], [address], [facility] 6 14:07:55 Finding by method [id number] Completed 200008/17/2010 Nabil Mims MD [address] [place], [place] [address], [address], [facility] 6 14:07:56 Breathin g painful 92183009 Completed 200008/17/2010 Nabil Mims MD [address] [place], [place] [address], [address], [facility] 6 14:07:56 Pain in throat 205593851 Completed 200708/17/2010 Nabil Mims MD [address] [place] [address] [place], [address], [facility] 6 14:07:56 Psychose xual dysfunct ion associat ed with inhibite d libido 297667722 Completed 200408/17/2010 Nabil Mims MD [address] [place] [address] [place], [address], [facility] 6 14:07:55 Common cold 29326796 Completed 200508/17/2010 Nabil Mims MD [address] [place], [place] [address], [address], [facility] 6 14:07:56 Verruca vulgaris 87120588 Completed 200608/17/2010 Nabil Mims MD [address] [place] [address] [place], [address], [facility] 6 14:07:55 On examinat ion - a rash Completed 199908/17/2010 Nabil Mims MD [address] [place] [address] [place], [address], [facility] 6 14:07:56 Closed fracture lumbar vertebra 534310995 Active MD Flor[place], [address], [facility] 6 14:07:56 Acute maxillar y sinusiti s 51491704 Completed 200508/17/2010 Nabil Mims MD [address] [place] [address] [place], [address], [facility] 6 14:07:56 Elevated blood-pr essure reading without diagnosi s of hyperten olegario 117434950 Completed 200708/17/2010 Nabil Mims MD [address] [place] [address] [place], [address], [facility] 6 14:07:56 Hyperlip idemia 33708057 Completed 200708/17/2010 Nabil Mims MD [address] [place] [address] [place], [address], [facility] 6 14:07:55 Low back pain 383387882 Active 2007 Nabil Mims MD [address] [place] [address] [place], [address], [facility] 6 14:07:56 Pain in thoracic spine 054968585 Completed 07/19/2013 Nabil Mims MD [address] [place] [address] [place], [address], [facility] [place] 6 14:07:56 Urethrit is [id number] Completed 200407/19/2013 Nabil Mims MD [address] [place] [address] [place], [address], [facility] [place] 6 14:07:56 Tinnitus [id number] Active 2003 Nabil Mims MD [address] [place] [address] [place], [address], [facility] [place] 6 14:07:56 Benign prostati c hyperpla demetrio [id number] Completed 200708/17/2010 Nabil Mims MD [address] [place], [place] [address], [address], [facility] [place] 6 14:07:56 Otogenic otalgia 52260928 Completed 200308/17/2010 Nabil Mims MD [address] [place], [place] [address], [address], [facility] [place] 6 14:07:56 Problem Notes None recorded. Procedures Surgical History Date Name Laterality Status Provider Name and Address Organization Details Recorded Time 1 prevention-card iovascular risk reduction counseling completed Ginna Rudd [facility] 02/25/2021 11:21:15 1 prevention-carlos al alcohol misuse screening completed Ginna Rudd [facility] 02/25/2021 11:21:15 0 prevention-card iovascular risk reduction counseling completed Randi Hernandez MA [facility] 10/10/2019 11:01:41 0 prevention-carlos al alcohol misuse screening completed Randi Hernandez MA [facility] 10/10/2019 11:01:41 Imaging Results Imaging Date Name Status LastModified by Organiz ation Details LastModified Time 12/20/2023 LDCT, chest, for lung cancer screening completed [facility] [address] [place], [address], 01/07/2024 16:34:28 01/20/2024 nerve conduction study completed [address] [place], [address], 02/12/2024 11:31:00 06/21/2024 US, renal completed [address] [place] [address], [address], 08/31/2024 21:52:42 Procedure Notes None recorded. Medical [...] CAPSULE BY MOUTH DAILY FOR 7 DAYS. 04/02 completed Not Available Not Available Not [...] Updated DateTime 4 182.88 cm 33.7 kg/m2 381799. 63 g 64 /min 120 mm[Hg] 78 mm[Hg] Flaca gavin MA [facility] 4 14:43:50 Date Recorded Body height Body mass index (BMI) Body weight Body temperature Heart rate Oxygen saturation Oxygen saturation in Arterial blood by Pulse oximetry Systolic blood pressure Diastolic blood pressure Provider Name and Address Organization Details Last Updated DateTime 4 182.88 cm 32.3 kg/m2 658699. 98 g 97.9 [degF] 79 /min 98 % 98 % 124 mm[Hg] 86 mm[Hg] RimmaMAXIMO Edwards [facility] 4 15:23:41 Date Recorded Body height Body mass index (BMI) Body weight Heart rate Systolic blood pressure Diastolic blood pressure Provider Name and Address Organization Details Last Updated DateTime 4 182.25 cm 31.9 kg/m2 528042. 18 g 76 /min 134 mm[Hg] 76 mm[Hg] Kristen Gordon [facility] 4 15:03:34 Date Recorded Body height Body mass index (BMI) Body weight Heart rate Systolic blood pressure Diastolic blood pressure Provider Name and Address Organization Details Last Updated DateTime 5 182.25 cm 31.7 kg/m2 381096. 87 g 76 /min 128 mm[Hg] 72 mm[Hg] Flaca gavin [facility] 5 14:36:11 Date Recorded Body height Body mass index (BMI) Body weight Heart rate Systolic blood pressure Diastolic blood pressure Provider Name and Address Organization Details Last Updated DateTime 5 182.25 cm 31.8 kg/m2 490338. 74 g 80 /min 110 mm[Hg] 76 mm[Hg] Flaca gavin MA [facility] 5 11:09:48 Social History Question Answer Notes LastModified by Organizat ion Details LastModified Time Tobacco Smoking Status Former Smoker Quit 2013 with ID, smoked 1 1/2 [facility] 11/14/2013 13:55:33 Do You Have An Advance Directive? Yes [email or web address] Information not available 09/11/2022 Which Illicit Or Recreational Drugs Have You Used? None Information not available 10/06/2018 When Did You Quit Smoking? 11-15yearssi [email or web address] ette Quit 2013 Information not available 11/14/2024 CSRP - Narcotics No Informat ion not available 10/08/2014 CSRP Contract Signed And Discussed No Information not available 10/08/2014 Patient Has Health Care Proxy Signed And In Chart No Declines [email or web address] Information not available 08/24/2018 CSRP - Stimulants No Information not available 10/08/2014 CSRP - Suboxone No Informati on not available 09/02/2015 What Was The Date Of Your Most Recent Tobacco Screening? 11/14/2024 Information not available 11/14/2024 What Is Your Current Pack Years? 30ormorepack years 47 Smoked 1 1/2 Packs Information not available 11/14/2024 What Is Your Relationship Status? Information not available 03/09/2022 How Much Tobacco Do You Smoke? No Information not available 02/28/2015 Sex: Male Functional Status Question Answer Note LastModified by Organizat ion Details LastModified Time Do you use any illicit or recreational drugs? No Information not available 07/01/2022 Do you or have you ever used any other forms of tobacco or nicotine? No [email or web address] Information not available 09/11/2022 Are you currently employed? Yes Information not available 03/09/2022 What is your occupation? [employer] Information not available 07/16/2011 Do you or have you ever used e-cigarettes or vape? Never used electronic cigarettes Information not available 07/09/2020 Mental Status None recorded. Family History Relationship Description Onset Age of this Age Resolved Age Notes LastModified by Organization Details LastModified Time Brother Malignant neoplasm of prostate [email or web address] Not available 2014 12:58:11 Notes:Brother-Prostate cance r discovered age 40. Htn in both parents. Father 2017 at 80 with lung cancer (asbestosis exposure)s Medical History Condition Response Chronic Neck Pain Y Myocardial Infarction Y Hypertension Y Chronic Back Pain Y Immunizations Vaccine Type Date Status Note Provider Nam e and Address Organization Details Recorded Time Td(adult) unspecified formulation 2 completed Not Available [facility] 07/15/2011 05:20:34 Tdap 4 completed Not Available [facility] 09/16/2019 02:34:51 Td (adult), 2 Lf tetanus toxoid, preservative free, adsorbed 4 completed Todd Reyes, DO [address] [place] [address], [phone], [facility] [place] 05/16/2024 17:30:28 Past Encounters Encounter ID Performer Location Encounter Start Date Encounter Closed Date Diagnosis/Indication Diagnosis SNOMED-CT Code Diagnosis ICD10 Code Diagnosis Note [id number] Nabil Mims MD FP, [facility], OFFICE [address] [place] [address] 07/20/2000 10:00:00 09/19/2008 02:02:29 [id number] [facility] RADIOLOGY [employer] , [facility] [address] [place] [address] 12/23/2000 11:15:00 09/19/2008 02:02:29 [id number] Nabil Mims MD , [facility], OFFICE [address] [place] [address] 12/23/2000 10:30:00 09/19/2008 02:02:29 [id number] Tarun Sousa MD , [facility], [address]ICE [address] [place] [address] 04/05/2001 12:15:00 09/19/2008 02:02:29 [id number] [facility] RADIOLOGY [employer] , [facility] [address] [place] [address] 12/23/2000 00:00:00 09/19/2008 02:02:29 [id number] Nabil Mims MD , [facility], [address]ICE [address] [place] [address] 10/04/2001 11:30:00 09/19/2008 02:02:29 [id number] Kiana Min NP , [facility], [address] [place] [address] 05/04/2002 11:45:16 09/19/2008 02:02:29 [id number] [facility] RADIOLOGY [employer] , [facility] [address] [place] [address] 05/04/2002 12:09:36 09/19/2008 02:02:29 [id number] [facility] RADIOLOGY [employer] , [facility] [address] [place] [address] 05/04/2002 00:00:00 09/19/2008 02:02:29 [id number] Nabil Mims MD , [facility], [address]ICE [address] [place] [address] 06/08/2002 11:59:00 09/19/2008 02:02:29 [id number] MD LUCIO Moyer, [facility], [address] [place] [address] 11/22/2002 08:46:58 09/19/2008 02:02:29 [id number] Kiana Min NP , [facility], [address] [place] [address] 08/20/2003 14:52:56 08/21/2003 16:11:48 [id number] Kiana Min NP , [facility], [address] [place] [address] 09/10/2003 15:27:22 09/11/2003 08:04:43 [id number] Kiana Min NP , [facility], [address] [place] [address] 11/12/2003 14:31:28 11/12/2003 17:34:18 [id number] MD LUCIO Moyer, [facility], [address] [place] [address] 11/22/2003 11:00:57 11/22/2003 15:00:01 [id number] [facility] - [address] [address] 11/22/2003 11:52:55 11/22/2003 11:53:11 [id number] ANGELIKA Holder , [facility], [address] [place] [address] 03/13/2005 11:41:37 03/14/2005 10:58:29 [id number] [facility] - [address] [address] 03/13/2005 13:08:52 03/13/2005 13:09:30 [id number] MD LUCIO Moyer, [facility], [address]ICE [address] [place] [address] 08/07/2005 09:48:50 08/08/2005 13:35:10 [id number] Sapphire Arguello, [facility], [address] [place] [address] 09/09/2005 11:58:28 09/19/2008 02:02:29 [id number] Nabil Mims MD , [facility], [address]ICE [address] [place] [address] 11/13/2005 12:20:32 11/16/2005 09:23:55 [id number] [facility] - [address] [address] 11/13/2005 13:16:54 11/13/2005 13:17:12 [id number] Nabil Mims MD [facility], OFFICE [address] [place] [address] 01/14/2007 11:40:19 01/17/2007 12:17:10 [id number] Sapphire Arguello [facility], [address]ICE [address] [place] [address] 12/20/2007 11:35:44 09/19/2008 02:02:29 [id number] [facility] - [address] [address] 12/20/2007 12:31:37 12/20/2007 12:31:43 [id number] Lillian Newman NP [facility], [address] [place] [address] 01/09/2008 13:30:04 09/19/2008 02:02:29 [id number] Nabil Mims MD [facility], [address]ICE [address] [place] [address] 05/15/2008 10:44:20 09/19/2008 02:02:29 [id number] [facility] - [address] [address] 05/25/2008 11:29:53 05/25/2008 11:29:58 [id number] Mauri Palacios MD [facility], [address]ICE [address] [place] [address] 06/21/2008 11:12:42 09/19/2008 02:02:29 [id number] [facility] [address] [place] [address] 07/05/2008 11:41:33 09/19/2008 02:02:29 [id number] Sapphire Arguello [facility], [address]ICE [address] [place] [address] 08/22/2008 14:14:40 09/19/2008 02:02:29 [id number] Nabil Mims MD FP, [facility], [address] [place] [address] 08/31/2008 08:38:08 09/19/2008 02:02:29 [id number] Ratna dorantes, PT Physical Therapy, [facility] [address] [place] [address] 09/03/2008 13:23:05 09/03/2008 16:11:51 [id number] Ratna dorantes, PT Physical Therapy, [facility] [address] [place] [address] 09/05/2008 11:57:49 09/05/2008 13:07:17 [id number] Nabil Mims MD , [facility], [address]ICE [address] [place] [address] 09/07/2008 14:48:38 09/19/2008 02:02:29 [id number] Ratna dorantes, PT Physical Therapy, [facility] [address] [place] [address] 09/10/2008 12:55:48 09/10/2008 16:12:49 [id number] Nabil Mims MD , [facility], OFFICE [address] [place] [address] 09/14/2008 14:38:11 09/19/2008 02:02:29 [id number] Nabil Mims MD , [facility], [address]ICE [address] [place] [address] 09/21/2008 12:12:06 10/02/2008 02:02:00 [id number] [facility] RADIOLOGY [facility] , [address] [address] 10/31/2008 12:05:01 10/31/2008 16:09:08 [id number] [facility] RAD[facility] , [address] [address] 04/01/2009 16:25:58 04/08/2009 11:47:24 [id number] [facility] RAD[facility]OLOG[facility] , [address] [address] 09/20/2008 12:25:52 09/21/2008 09:23:13 [id number] [facility] RAD[facility]OLOG[facility] , [address] [address] 09/20/2008 00:00:00 06/27/2009 02:00:52 [id number] [facility] Rad[facility] , [facility] [address] [place] [address] 10/31/2008 00:00:00 06/27/2009 02:00:52 [id number] [facility] RADIOLOGY [facility] , [facility] [address] [place] [address] 04/01/2009 00:00:00 06/27/2009 02:00:52 [id number] Nabil Mims MD , [facility], [address]ICE [address] [place] [address] 07/09/2009 13:35:13 07/22/2009 16:33:09 [id number] [facility] RADIOLOGY [employer] , [facility] [address] [place] [address] 07/09/2009 14:28:23 07/12/2009 11:03:58 [id number] Nabil Mims MD , [facility], [address]ICE [address] [place] [address] 08/04/2010 08:18:28 09/02/2010 14:03:02 [id number] Nabil Mims MD , [facility], [address] [place] [address] 10/07/2010 13:31:45 10/09/2010 14:29:55 [id number] Nabil Mims MD , [facility], [address] [place] [address] 07/04/2012 13:42:02 07/04/2012 14:26:20 [id number] Nabil Mims MD , [facility], [address] [place] [address] 07/11/2012 10:56:48 07/11/2012 12:11:42 [id number] Jam Lemos MD , [facility], [address]ICE [address] [place] [address] 10/03/2012 15:50:45 10/04/2012 12:51:04 [id number] Alexis Monahan MD Radiology , [facility] [address] [place] [address] 10/03/2012 16:51:32 10/03/2012 17:12:12 [id number] Jluis Laird MD Radiology , [address] [address] 10/26/2012 12:57:15 10/26/2012 13:29:14 [id number] Nabil Mims MD , [facility], [address]ICE [address] [place] [address] 06/28/2013 11:55:48 07/04/2013 13:54:49 Essential hypertension 13194922 Impetigo 86972305 Low back pain 873443776 Fracture o f vertebral column without spinal cord injury 57915571 [id number] Nabil Mims MD , [facility], [address]ICE [address] [place] [address] 11/14/2013 13:42:26 11/14/2013 14:26:35 Low back pain 767333778 Myocardial infarction 18121309 Angina pectoris 866738934 Single cor onary vessel disease 938588679 [id number] Nabil Mims MD , [facility], [address]ICE [address] [place] [address] 06/27/2014 14:46:32 06/28/2014 10:10:57 Mixed hyperlipidemia 950936778 Single cor onary vessel disease 082201005 Myocardial infarction 83736344 Administra tion of diphtheria, pertussis, and tetanus vaccine 430565485 Impotence 255569866 Neck pain 93738938 Essential hypertension 53785698 [id number] Nabil Mims MD , [facility], [address] [place] [address] 10/08/2014 11:45:53 10/08/2014 12:41:21 Adult health examination 453697768 see Risk Assessment and Lifestyle Change Counseling section above Counseling [id number] Benign ess ential hypertension 0513135 Blood pressure at goal Myocardial infarction 37886247 Neck pain 32364066 Mixed hyperlipidemia 584535040 Impotence 278323163 Angina pectoris 763712539 Family his tory of malignant neoplasm of prostate 955127137 [id number] Nabil Mims MD , [facility], [address] [place] [address] 12/07/2014 14:35:50 12/10/2014 12:58:23 Benign essential hypertension 5252472 Blood pressure at goal . [id number] MD LUCIO Moyer, [facility], [address] [place] [address] 01/18/2015 12:03:49 01/22/2015 08:29:56 Benign essential hypertension 0210108 Blood pressure at goal . Neck pain 40863027 [id number] Nabil Mims MD , [facility], [address] [place] [address] 02/28/2015 14:07:58 02/28/2015 14:41:08 Benign essential hypertension 9376583 Blood pressure at goal Mixed hyperlipidemia 706058995 Cholestero l is at goal Continue to work on diet and exercise as discussed Angina pectoris 026092496 Old myocar dial infarction 6437419 [id number] Nabil Mims MD , [facility], [address]ICE [address] [place] [address] 09/02/2015 13:53:23 09/02/2015 14:40:22 Benign essential hypertension 0684216 I10 Blood pressure at goal Mixed hyperlipidemia 267 720413 E78.2 Cholestero l is at goal Continue to work on diet and exercise as discussed Fracture o f vertebral column without spinal cord injury 84050597 T14.8 Angina pectoris 39240063 0 I20.9 Single cor onary vessel disease 664866223 I25.10 Old myocar dial infarction 9679960 I25.2 [id number] Mauri Palacios MD , [facility], [address] [place] [address] 02/19/2016 14:31:25 02/19/2016 15:28:45 Knee pain 07547178 M25.561 right mcl sprain- neoprene knee brace, heat, advill. if not better, consider knee immobilize r [id number] Nabil Mims MD , [facility], [address] [place] [address] 03/27/2016 14:02:18 03/27/2016 15:05:50 Adult health examination 533195141 Z00.00 see Risk Assessment and Lifestyle Change Counseling section above Counseling 869184595 Z71 .9 Mixed hyperlipidemia 267 402206 E78.2 Cholestero l is at goal. Continue to work on diet and exercise as discussed Benign ess ential hypertension 8952666 I10 Blood pressure at goal Single cor onary vessel disease 608771263 I25.10 Closed fra cture lumbar vertebra 585785880 S32.009D Myocardial infarction 22 936475 I21.3 Low back pain 691769038 M54.5 Knee pain 90789138 M25.5 61 [id number] Nabil Mims MD , [facility], [address] [place] [address] 09/07/2016 13:58:02 09/07/2016 14:42:03 Benign essential hypertension 8813964 I10 Blood pressure at goal Blood pressure NOT at goal. Mixed hyperlipidemia 267 646828 E78.2 Cholestero l is at goal. Continue to work on diet and exercise as discussed Single cor onary vessel disease 400774763 I25.10 Myocardial infarction 22 955029 I21.3 Angina pectoris 99730549 0 I20.9 Bilateral arthritis of knees 9339215158 [id number] M13.181 [id number] Nabil Mims MD , [facility], [address]ICE [address] [place] [address] 03/30/2017 14:39:22 03/30/2017 15:54:12 Adult health examination 346721234 Z00.00 see Risk Assessment and Lifestyle Change Counseling section above Counseling 109523194 Z71 .9 Benign ess ential hypertension 2218359 I10 Blood pressure at goal Mixed hyperlipidemia 267 069591 E78.2 Cholestero l is at goal Continue to work on diet and exercise as discussed Screening for malignant neoplasm of colon 084628412 Z12.11 Referral for a DIRECT booked colonoscop y. This patient is a healthy ASA Class 1 or 2 patient (only mild systemic disease), or a STABLE, well controlled insulin dependent diabetic. They do not have serious cardiac disease ie ID/angiopl asty within 1 year, symptomati c CHF; renal failure with CKD 4 or 5; take Coumadin, Plavix, Aggrenox, etc. Umbilical hernia 0650254 07 K42.9 Single cor onary vessel disease 320450773 I25.10 Closed fra cture lumbar vertebra 852103302 S32.009D Myocardial infarction 22 505670 I21.3 Low back pain 420962149 M54.5 [id number] Nabil Mims MD , [facility], [address] [place] [address] 10/12/2017 13:55:08 10/12/2017 14:47:05 Benign essential hypertension 1416795 I10 Blood pressure at goal Single cor onary vessel disease 354497979 I25.10 Myocardial infarction 22 129883 I21.3 [id number] Nabil Mism MD , [facility], [address] [place] [address] 10/28/2017 15:44:23 10/29/2017 08:53:34 Colonoscopy abnormal 032055823 R93.3 [id number] Nabil Mims MD , [facility], [address] [place] [address] 04/19/2018 14:26:01 05/06/2018 11:57:46 Fever 839181109 R50.9 [id number] Nabil Mims MD , [facility], [address] [place] [address] 10/06/2018 14:43:16 10/06/2018 15:43:57 Adult health examination 229492913 Z00.00 see Risk Assessment and Lifestyle Change Counseling section above Counseling 456147833 Z71 .9 Depression screening 171 973712 Z13.89 depression screening tool administer ed, entered into emr, scored and discussed, time greater than 7.5 minutes Bilateral arthritis of knees 6917735668 336573 M13.861 Benign ess ential hypertension 4904414 I10 Blood pressure at goal Single cor onary vessel disease 727495355 I25.10 Closed fra cture lumbar vertebra 041621981 S32.009D Myocardial infarction 22 651402 I21.3 Gastroesop hageal reflux disease 755625547 K21.9 Mixed hyperlipidemia 267 688375 E78.2 Cholestero l is at goal Continue to work on diet and exercise as discussed Low back pain 594073856 M54.5 [id number] Nabil Mims MD , [facility], [address] [place] [address] 03/30/2019 14:28:07 03/30/2019 15:13:25 Benign essential hypertension 2303400 I10 Mixed hyperlipidemia 267 042164 E78.2 Medial epicondylitis 532 68419 M77.02 Gastroesop hageal reflux disease 759785898 K21.9 [id number] Nabil Mims MD , [facility], [address] [place] [address] 06/12/2019 11:57:05 06/12/2019 12:29:50 Gastroesophageal reflux disease 189440918 K21.9 [id number] Jluis Laird MD , [facility], [address] [place] [address] 07/19/2019 11:28:34 07/19/2019 12:11:16 Benign essential hypertension 1123711 I10 BP at goal today at 130/82. Episode of HTN urgency two days ago. Went to ER. cardiac work-up wnl.Advise d pt to continue medication , get regular exercise, avoid salt in diet, and monitor BP at home and bring log to F/U in 2 weeks. Go to ER for CP, SOB, , visual changes. [id number] Jluis Laird MD , [facility], [address] [place] [address] 08/01/2019 11:29:10 08/01/2019 12:16:10 Benign essential hypertension 3921219 I10 BP slightly elevated today at 136/90.Asy mptomatic. Erratic readings at home d/t possible faulty cuff.Advis ed pt to continue medication , get regular exercise, avoid salt in diet.Will monitor at BP clinic and F/U in 3 weeks. [id number] Rajwinder Ceballos PA-C , [facility], [address] [place] [address] 09/01/2019 11:44:06 09/01/2019 13:10:16 Benign essential hypertension 6477679 I10 BP slightly elevated today at 144/88..As ymptomatic .Advised pt to continue medication , get regular exercise, avoid salt in diet.F/U in 1 month at W. [id number] TIMMY Parker, [facility], [address] [place] [address] 10/10/2019 10:59:18 10/10/2019 11:46:41 Adult health examination 797219503 Z00.00 see risk assessment Counseling 890665645 Z71 .9 including cardiovasc ular risk reduction counseling Depression screening 171 558625 Z13.89 depression screening tool administer ed, entered into emr, scored and discussed, time greater than 7.5 minutes Screening for alcohol abuse 618540319 Z13.39 Essential hypertension 88232145 I10 Mixed hyperlipidemia 267 125141 E78.2 Cholestero l is at goal Continue to work on diet and exercise as discussedW Ill get labs in 3 months. Gastroesop hageal reflux disease 191301327 K21.9 Occasional flares. Uses famotidine with good effect, Discussed diet modificati on and benefits of weight loss. Sensation of irritation of eye proper 343320386 H57.89 x 1 year. Has not eye exam in 20 years since lasik surgery. Will give optometry referral. Myocardial infarction 22 997789 I21.9 No CP, VICK. BP at goal. Followed by Arsalan Plummer - next visit in 3 months. Benign ess ential hypertension 1865808 I10 BP at goal today. Advised pt to continue medication , avoid salt in diet, and get regular exercise Medial epi condylitis of right elbow joint 6106991112 67705 M77.01 Advised PT and elbow brace. Pt declines PT. Will try brace.F/U for worsening/ persisting sx. [id number] Jam Lemos MD , [facility], [address] [place] [address] 03/28/2020 14:08:28 04/01/2020 10:51:29 Closed fracture lumbar vertebra 351902177 S32.009A CHronic back pain with occasional radiculopa thy. Sees chiropract or with good effect. Requesting yearly FMLA paperwork be filled out. [id number] Jam Lemos MD , [facility], [address] [place] [address] 07/09/2020 13:48:59 07/10/2020 03:45:27 Mixed hyperlipidemia 325759805 Will get labs before [place] in 3 months. Encouraged healthy low fat diet and regular exercise. Benign ess ential hypertension 4144110 I10 BP at goal today. Advised pt to continue medication , avoid salt in diet, and get regular exercise Chronic back pain 139851 002 M54.30 intermitte nt shooting pain across mid back s/p lifting injury 5 months ago.Advise d PT however pt declines at this time. WIll research strengthen ing stretching exercises to do at home.WIll get xray and F/U in 1.5-2 months or sooner for worsening sx. [id number] Jam Lemos MD , [facility], [address] [place] [address] 08/13/2020 13:53:03 08/14/2020 11:02:25 Screening for disorder 271678688 Z11.59 Closed fra cture lumbar vertebra 602691014 S32.009A s/p lifting [address] Matos, neurosurge on who explained MRI results and did not think he was a candidate for surgery at this time. Recent BDT wnl. Advised rest, avoiding lifting, bending, straining. WIll consider PT in a few months. [id number] Jluis Laird MD , [facility], [address] [place] [address] 02/25/2021 13:46:29 02/26/2021 13:18:23 Adult health examination 599723502 Z00.00 see risk assessment Counseling 775311498 Z71 .9 including cardiovasc ular risk reduction counseling Depression screening 171 988121 Z13.31 depression screening tool administer ed, entered into emr, scored and discussed, time greater than 7.5 minutes Screening for alcohol abuse 849423732 Z13.39 see audit C Mixed hyperlipidemia 267 275019 E78.2 Cholestero l is at goalContin ue to work on diet and exercise as discussed Old myocar dial infarction 2554682 I25.2 2013. Asymptomat ic. BP at goal. Followed by Arsalan Plummer - overdue for visit - will schedule. Essential hypertension 45963485 I10 BP at goal today. Advised pt to continue medication , avoid salt in diet, and get regular exercise Gastroesop hageal reflux disease 407116238 K21.9 Flares with esophagiti s. Uses famotidine with good effect.Was scheduled for endoscopy but cancelled d/t COVID.Disc ussed diet modificati on and benefits of weight loss. [id number] Jluis Laird MD , [facility], [address] [place] [address] 08/20/2021 14:26:13 08/20/2021 14:56:02 Essential hypertension 82319252 I10 BP mildly elevated today. Followed by Dr. Reyna, Cardiologi , who started him on 5mg/d amlodipine at visit last month. (reviewed note.)Advi sed pt to continue medication , avoid salt in diet, get regular exercise, and keep cardiology apointment s. Mixed hyperlipidemia 267 218811 E78.2 Cholestero l is at goalContin ue to work on diet and exercise as discussed Old myocar dial infarction 0910895 I25.2 2013. Asymptomat ic. BP at goal. Followed by Arsalan Plummer - yonatan ice note from last month. Soft tissu e swelling of knee joint 161495100 M25.469 Advised RICE measures. RTC for worsening sx. Gastroesop hageal reflux disease 701260739 K21.9 Flares with esophagiti s. Uses famotidine prn with good effect.Was scheduled for endoscopy but cancelled d/t COVID.Disc ussed diet modificati on and benefits of weight loss. [id number] Jluis Laird MD FP, [facility], [address] [place] [address] 03/09/2022 14:43:12 03/09/2022 15:27:06 Adult health examination 203288716 Z00.00 see risk assessment Counseling 215432041 Z71 .9 including cardiovasc ular risk reduction counseling Depression screening 171 511852 Z13.31 depression screening tool administer ed, entered into emr, scored and discussed, time greater than 7.5 minutes Screening for alcohol abuse 846147211 Z13.39 see audit C Myocardial infarction 22 509111 I21.9 Stent placed 2013.BP at goal. No new/recent sx.Followe d by Arsalan Dash who is moving from area.Plans to find/sched ule with new cardiologi st. Benign ess ential hypertension 5080364 I10 BP at goal today. Advised pt to continue medication , avoid salt in diet, and get regular exercise Mixed hyperlipidemia 267 049888 E78.2 Cholestero l is at goalContin ue medication and to work on diet and exercise as discussed. Impaired f asting glycemia 838806860 R73.01 Gastroesop hageal reflux disease 623937077 K21.9 Uses famotidine prn with good effect.Dis cussed diet modificati on and benefits of weight loss. [id number] Jluis Laird MD FP, [facility], [address] [place] [address] 07/01/2022 15:41:41 07/01/2022 17:04:07 Anxiety 32375044 F41.9 Significan tly worsend anxiety due to many life stressors currently. Excellent response to a friend's lorazepam. We discussed risks of chronic BZD use today. He declines a long-term SSRI or other medication .Will trial lorazepam for a short course.F/U in 2-3 weeks. Adjustment disorder 1722 6007 F43.20 As above. Benign ess ential hypertension 7202623 I10 Above goal today. F/U in 2-3 weeks to recheck. [id number] Jluis Laird MD , [facility], [address] [place] [address] 07/15/2022 13:30:22 07/15/2022 13:59:51 Anxiety 06602848 F41.9 Improving. Continue sparing use of lorazepam. Adjustment disorder 1722 6007 F43.20 As above. Benign ess ential hypertension 7020402 I10 Improved today, nearly at goal. [id number] DO LUCIO Umaña, [facility], [address] [place] [address] 09/11/2022 14:27:38 09/11/2022 17:43:51 Essential hypertension 81792460 I10 Above goal today. Has appt in [address] [facility] cardiology , will get rechecked then, he reports they manage his BP. F/u labs. Mixed hyperlipidemia 267 816156 E78.2 At goal, continue current regimen. F/u labs. Ex-smoker 5952824 Z87.89 1 Bilateral arthritis of knees 6359954031 634017 M13.861 Having oxford procedure soon. Gastroesop hageal reflux disease 582669878 K21.9 Has upcoming EGD. Myocardial infarction 22 369858 I21.9 Age 48, follows [facility] cardiology . S/p stent, on statin and ASA. Stress 82589520 Z73.3 Pt going through divorce. No longer using lorazepam. Patient ne w to provider 0244995213 97866 Z76.89 Transfer from . [id number] Todd Reyes DO , [facility], [address] [place] [address] 01/01/2023 14:45:59 01/01/2023 16:37:22 Benign essential hypertension 6362972 I10 Above goal today. Pt has upcoming cardiac pre-op. Continue antihypert ensives. Bilateral arthritis of knees 4902328981 814941 M13.861 Having oxford procedure soon. Single cor onary vessel disease 199198563 I25.10 Stable, continue current regimen. Pre-surger y evaluation 120832814 Z01.818 Pt is mod risk for low risk procedure, class 1 per [facility]. Mixed hyperlipidemia 267 784309 E78.2 At goal, continue current regimen. [id number] DO LUCIO Umaña, [facility], [address] [place] [address] 04/02/2023 14:45:11 04/02/2023 15:35:16 Adult health examination 669552350 Z00.00 Pts overall health is good. Reviewed labs. Next [place] in 1 year. Depression screening 171 336768 Z13.31 depression screening tool administer ed Screening for alcohol abuse 415487168 Z13.39 Alcohol use screening tool administer ed Screening for malignant neoplasm of prostate 325471578 Z12.5 PSA testing for ages 55-69 risks and benefits discussed {{patient declines testing te st ordered*}} . Benign ess ential hypertension 5090560 I10 Above goal today. Pt has upcoming cardiac pre-op. Continue antihypert ensives. Bilateral arthritis of knees 1008977099 413407 M13.861 Having oxford procedure soon. Gastroesop hageal reflux disease 500587779 K21.9 Following with GI. Mixed hyperlipidemia 267 408184 E78.2 At goal, continue current regimen. Myocardial infarction 22 155686 I21.9 Age 48, follows [facility] cardiology . S/p stent, on statin and ASA. Single cor onary vessel disease 038227164 I25.10 Stable, continue current regimen. See above. [id number] MD LUCIO Clement, [facility], [address] [place] [address] 05/31/2023 10:14:43 05/31/2023 10:30:42 Vaccination not done 7590658155 9108 Z28.29 Patient declined the flu vaccine at this time. Skin tag 108900193 L91.8 can schedule removal with another provider if wishes Cellulitis 860220159 L03 .90 infection resolving after drainage. Suspect erythema from bandaid reactionno indication for abx [id number] DO LUCIO AGUIRRE, [facility], [address] [place] [address] 11/01/2023 10:54:49 11/01/2023 11:23:02 Epididymitis 50888857 N45.1 chronic epididymit is since having a vasectomy. Presents with testicular (R) discomfort consistent with prior episodes of epididymit is. Discussed workup to include urine studies to which patient was agreeable. Venereal d isease screening 951553938 Z11.3 STD screening given recent sexual encounter in [facility]. Reports protected sex however he has had some penile itching since the encounter. Benign ess ential hypertension 3253829 I10 Counseled patient on avoidance of NSAIDsLow sodium diet < 2000 mg/dayMoni tor BP at home and maintain log book. [id number] Todd Reyes DO , [facility], [address] [place] [address] 11/12/2023 14:25:47 11/12/2023 15:44:07 Ex-smoker 7171391 Z87.891 Cervical radiculopathy 35020207 M54.12 Will get EMG. Rotation to the right and extension reproduce sxs as well as flexion at the wrist.Shane Capone MD[address] [place] [id number]. , Displaceme nt of cervical intervertebral disc without myelopathy 54184867 M50.20 See above. Nocturia 613450601 R35.1 Will refer to urology per patient request. Essential hypertension 55595523 I10 Above goal today. Continue current regimen. Does not appear to need additional medication at this time. Single cor onary vessel disease 369756934 I25.10 Stable, continue current regimen. See above. Mixed hyperlipidemia 267 913605 E78.2 At goal, continue current regimen. [facility] History of myocardial infarction 822136236 I25.2 Stable. Continue current reigmen. Follows with cardiology . [id number] Ruddy Calvin MD FP, [facility], [address] [place] [address] 03/23/2024 14:52:46 03/24/2024 10:09:06 Chest wall pain 690744556 R07.89 59-year-ol d male with a prior history of ID, CAD and hypertensi on complainin g of a well localized left lateral chest wall discomfort which radiates around to the front lower rib epigastric region. On and off for the last few months only getting worse since this weekend. Worse with deep breaths or certain movements. 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 Reviewed labs. Next [place] in 1 year. Depression screening 171 349877 Z13.31 depression screening tool administer ed Screening for alcohol abuse 115893638 Z13.39 Alcohol use screening tool administer edPlease work on decreasing your etoh intake Screening for malignant neoplasm of prostate 001550433 Z12.5 If you have a prostate, the [...] with urology Single cor onary vessel disease 957665092 I25.10 Stable, continue current regimen.Fo llowing with cardiology . Mixed hyperlipidemia 267 657658 E78.2 At goal, continue current regimen. Following with cardiology . Gastroesop hageal reflux disease 257433019 K21.9 Following with GI. Improved after losing weight. Has not needed omeprazole . Benign ess ential hypertension 4325495 I10 Above goal today. continue antihypert ensives. Cough 33871082 R05.9 Cough now resolved. Degenerati on of cervical intervertebral disc 06265890 M50.30 Follows with ortho. Is waiting until progressio n of pain before surgical interventi on. 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 Continue current reigmen. Follows with cardiology . Polyp of colon 01601721 K63.5 Pt has upcoming sigmoidosc opy. Peripheral vascular disease 346208065 I73.9 Former smokerLDCT done in November Active or passive immunization 570766510 Z23 [id number] Todd Reyes DO , [facility], [address] [place] [address] 11/14/2024 14:26:11 11/15/2024 10:40:52 Immunization due 842579574 Z28.39 patient aware to contact pharmacy for shingles and pneumococc al vaccines. Influenza vaccination declined 180259664 Z28.21 Pain of sh oulder region 00686674 M25.519 Benign ess ential hypertension 1435604 I10 At goal, continue current regimen. Hyperlipidemia 35019853 E78.5 Spinal guan[place]ito nosis in cervical region 66407535 M48.02 Benign pro static hyperplasia 866335776 N40.0 [id number] DO LUCIO Umaña, [facility], [address] [place] [address] 11/28/2024 10:55:01 11/29/2024 11:51:00 Immunization due 589613006 Z28.39 patient aware to contact pharmacy for shingles and pneumococc al vaccines. Cervical arthritis 69310 1000 M47.812 Administra tive reason for encounter 102413071 Z02.9 [place] papers Health Concerns Section Related Observation LastModified by Organization Detai ls LastModified Time None Recorded Concern Status LastModified by Organization Details LastModified Time None Recorded Advance Directives Directive Y: Payers Encounter Date Sequence Insurance Name Policy Number Policy Becker Covered Member ID Becker Member ID Guarantor Name 11/12/2023 1 [place] [employer] 33 Manjinder Lizarraga [id number] Manjinder Lizarraga 03/23/2024 1 [place] 33 Manjinder Lizarraga [id number] Manjinder Lizarraga 05/16/2024 1 [place] 33 Manjinder Lizarraga [id number] Manjinder Lizarraga 11/14/2024 1 [place] 33 Manjinder Lizarraga [id number] Manjinder Lizarraga 11/28/[address] [facility] [employer] 33 Manjinder Lizarraga [id number] Manjinder Lizarraga Notes Date Note Type Note Provider Name and Address Organization Details Recorded Time 4 text/html [facility] HyperlipidemiaReported bypatient.Control:well controlled; improved [...] reports he had stressful drive over Todd Reyes, DO [address] [place], [address], [facility] 11/12/2023 15:10:20 4 text/html Left sided pain near rib cage. Radiates to mid stomach area. Comes and goes x 3-4 months. Worsening since last Wednesday. No falls or injuries. Stared a fasting diet. Lots of salads and fruits. Hurts to take a deep breath. Has not been taking pain relievers. Ruddy Calvin MD [address] [place] [address], [phone], [facility] 03/23/2024 17:40:40 4 text/html Physical Exam/MaleReported bypatient.PHAPatient [...] including screening and scoring greater than 7.5 minutes. VMG HyperlipidemiaReported bypatient.Control:well controlled; improved since last visit Compliance:compliant with medications; compliant with follow-up visits;noncompliant with diet Barriers to CareNo identified barriers to careVMG HypertensionReported bypatient.Notes:has not taken meds yet today, takes them at night before he goes to work around 5pm Presents for wWould like lungs checked; was sick a month ago, had persistent cough which has subsided Todd Reyes, DO [address] [place] [address], [phone], [facility] 05/16/2024 17:32:32 5 text/html VMG HyperlipidemiaReported bypatient.Control:well controlled; improved since last visit Compliance:compliant with medications; compliant with follow-up visits;noncompliant with diet Barriers to CareNo identified barriers to care Patient presents for medical management of hypertension and hyperlipidemia. History of Present IllnessThe patient presents with neck and shoulder pain and hypertension management.They experience intermittent neck and shoulder pain, sometimes radiating down the arm, related to repetitive tasks at work. The pain disrupts sleep, causing them to wake every three hours. A history of herniated discs in the neck is noted, with a temporary improvement following a cortisone shot two months ago.Hypertension is managed with daily medication at 4 PM. Blood pressure readings vary, with a recent clinic reading of 128/72 mmHg and higher readings at home, such as 150/?. Fluctuations are attributed to pain and stress from work and building a house. No anxiety affects blood pressure readings.They have lost 26 pounds since January and aim to lose an additional 10 to 15 pounds through intermittent fasting. Stress and sleep disturbances are present, potentially related to neck and shoulder pain. Plans to start gym workouts to manage stress and improve health are in place.Medications- Blood pressure medicationSocial History- Works night shifts- [place]- Brother had stage 3 prostate cancer at age 40, now stage 4 Todd Reyes DO [address] [place] [address], [phone], [facility] 11/14/2024 17:46:52 text/html Patient presents to complete [facility] paperwork. History of Present IllnessThe patient, with cervical spine degenerative changes, presents for recertification paperwork for lifelong condition management.Chronic neck pain is due to bone spurs at C4, C5, C6, and C7, and a herniated disc. Pain is worsened by overexertion or whiplash movements, causing nerve pinching and bruising, with symptoms lasting up to 12 weeks. Pain occasionally radiates down the arm and into the fingers.Management includes Advil and avoiding exacerbating activities. Surgery is considered only if symptoms become persistent and unmanageable. No recent imaging has been performed. Physical therapy was deemed ineffective for bone spurs. Concerns exist about worsening symptoms with upcoming physical activities, such as building a house.There is frustration with the need to recertify the condition as lifelong, documented since 2001. Recertification paperwork has not been completed since 2018, under the belief that the condition's lifelong nature was understood.Medications- Advil (as needed for shoulder pain) Todd Reyes DO [address] [place] [address], [phone], [facility] 11/28/2024 17:31:23
== END 2025-01-16 14:29 | disposition home or self-care (01) ==
LOC: HO.HUSH 13:55
PROVIDERS: PCP Family Medicine; Visit Provider Nurse Practitioner Family
DX: N40.0 Benign prostatic hyperplasia without lower urinary tract symptoms (principal); N32.89 Other specified disorders of bladder; Z80.42 Family history of malignant neoplasm of prostate; R35.1 Nocturia
CPT/HCPCS: 99213

== ENCOUNTER → 2025-01-16 13:55 | Outpatient (BNVA) | payer BC, SELFPAY | PROVIDERS: PCP Family Medicine; Visit Provider Nurse Practitioner Family ==

== ENCOUNTER 2025-07-10 11:30 | Outpatient (REF) | payer BC, SELFPAY ==
[2025-07-10 13:02] LABS: Prostate Specific Antigen 1.72 ng/mL (<0.05-4.0)
--- OUTSIDE RECORDS SUMMARY | 2025-07-10 13:37 | XMS_ITS | Encounter Summary ---
Author Organization [facility] Address [address] [place] [address] Phone Care Team Providers Care Camp Dishwasher Name Role Phone Nabil Mims MD Unavailable [phone] Kong Koenig MD Unavailable [phone] Nabil Mims MD Primary Care Provider [phone] Rajwinder Ceballos Primary Care Provider [phone] Dar Reyes OT Primary Care Provider [phone] Mahogany Reyes DO Primary Care Provider [phone] Reason for Referral * MRI/CAT Scan - Closed Specialty Diagnoses / Procedures Referred By Contac t Referred To Contact Radiology Diagnoses Pain in thoracic spine Procedures MRI Lumbar Spine Rajwinder Ceballos PA Phone: tel: fax: mailto:[email or web address] Referral ID Status Reason Start Date Expiration Date Visits Re quested Visits Authorized [id number] Closed 07/12/2020 07/12/2021 1 1 * MRI/CAT Scan - Closed Specialty Diagnoses / Procedures Referred By Contac t Referred To Contact Radiology Diagnoses Pain in thoracic spine Procedures MRI Thoracic Spine Rajwinder Ceballos PA Phone: tel: fax: mailto:[email or web address] Referral ID Status Reason Start Date Expiration Date Visits Re quested Visits Authorized [id number] Closed 07/12/2020 07/12/2021 1 1 Encounter Details Date Type Department Care Team (Latest Contact Info) Description 07/12/2020 Transcribe Orders Virtual Department [address] [place] [phone] Rajwinder Ceballos PA [address] [place] [phone] [email or web address] Pain in thoracic spine (Primary Dx) Social History Tobacco Use Types Packs/Day Years Used Date Smoking Tobacco: Former Smokeless Tobacco: Never Alcohol Use Standard Drinks/Week Comments Yes 1 (1 standard drink = 0.6 oz pur e alcohol) Sex and Gender Information Value Date Recorded Sex Assigned at Male 04/06/2018 4:11 PM EDT Legal Sex Male 9:39 PM EDT Gender Identity Male 04/06/2018 4:11 PM EDT Sexual Orientation Straight 07/17/2019 2: 06 PM EST documented as of this encounter Plan of Treatment Not on file documented as of this encounter Results * MRI LUMBAR SPINE (NEURO) WITHOUT CONTRAST (07/18/2020 9:51 PM EST) Anatomical Region Laterality Modality L-spine Magnetic Resonan ce 07/19/2020 8:15 AM EST Impressions 07/19/2020 8:23 AM EST 1.Interval chronic appearing moderate L4 compression fracture deformity since 2008. 2.Chronic moderate L2 compression fracture. 3.Mildly progressive multilevel degenerative changes as outlined above. No large disc herniation, nerve root compression or canal stenosis. Narrative 07/19/2020 8:23 AM EST COMPARISON: 09/27/2008. TECHNIQUE: Exam performed on a 1.5 Sosa high-field MRI scanner. Sagittal T1, T2 and STIR, axial T1 and T2 sequences were obtained. MRI LUMBAR SPINE FINDINGS: Stable mild straightening of the spine and loss of lordosis. New moderate biconcave endplate compression fracture deformity of L4 without marrow edema indicative of a chronic fracture. Interval healed moderate biconcave endplate compression fracture deformity of L2. New L3-4 disc desiccation. Stable L4-5 disc desiccation. No malalignment. Congenitally shortened lumbar spine pedicles. No disc space narrowing. No destructive or suspicious bone lesions. There is mild L5 superior endplate degenerative marrow edema. Conus terminates at T12-L1. Paraspinal soft tissues are normal. Additional findings: No incidental findings of concern. L1-L2: Stable minimal disc bulging and facet arthropathy. L2-L3: Stable minimal disc bulging and facet arthropathy. New 7 mm synovial cyst in the right facet joint without mass effect. L3-L4: Stable disc bulging and mild facet arthropathy. L4-L5: New small generalized disc osteophyte complex. Stable mild facet arthropathy. Progressive moderate left neural foraminal stenosis due to spurring. New moderate right neural foraminal stenosis due to spurring. L5-S1: New mild right foraminal disc bulging and annular tear. Progressive moderate right facet arthropathy and stable mild left facet arthropathy. Stable mild right neural foraminal stenosis due to spurring. Procedure Note Byron Faustin MD - 07/19/2020 COMPARISON: 09/27/2008. TECHNIQUE: Exam performed on a 1.5 Sosa high-field MRI scanner. SagittalT1, T2 and STIR, axial T1 and T2 sequences were obtained. MRI LUMBAR SPINE FINDINGS: Stable mild straightening of the spine and loss of lordosis. New moderatebiconcave endplate compression fracture deformity of L4 without marrowedema indicative of a chronic fracture. Interval healed moderate biconcaveendplate compression fracture deformity of L2. New L3-4 disc desiccation.Stable L4-5 disc desiccation. No malalignment. Congenitally shortenedlumbar spine pedicles. No disc space narrowing. No destructive orsuspicious bone lesions. There is mild L5 superior endplate degenerativemarrow edema. Conus terminates at T12-L1. Paraspinal soft tissues arenormal. Additional findings: No incidental findings of concern. L1-L2: Stable minimal disc bulging and facet arthropathy. L2-L3: Stable minimal disc bulging and facet arthropathy. New 7 mmsynovial cyst in the right facet joint without mass effect. L3-L4: Stable disc bulging and mild facet arthropathy. L4-L5: New small generalized disc osteophyte complex. Stable mild facetarthropathy. Progressive moderate left neural foraminal stenosis due tospurring. New moderate right neural foraminal stenosis due to spurring. L5-S1: New mild right foraminal disc bulging and annular tear. Progressivemoderate right facet arthropathy and stable mild left facet arthropathy.Stable mild right neural foraminal stenosis due to spurring. IMPRESSION: 1.Interval chronic appearing moderate L4 compression fracture deformitysince 2008. 2.Chronic moderate L2 compression fracture. 3.Mildly progressive multilevel degenerative changes as outlined above. Nolarge disc herniation, nerve root compression or canal stenosis. us Rajwinder CARNEY IMG MR XSPECIALTY Final Resul t * MRI THORACIC SPINE (NEURO) WITHOUT CONTRAST (07/18/2020 9:29 PM EST) Anatomical Region Laterality Modality T-spine Magnetic Resonan ce 07/19/2020 8:04 AM EST Impressions 07/19/2020 8:20 AM EST Acute-subacute moderate compression fracture of the body of T8. No significant retropulsion of bone or central canal stenosis. No other evidence of acute or subacute compression fractures. No other significant changes from 10/17/2012. Narrative 07/19/2020 8:20 AM EST HISTORY: Pain since lifting injury 4 months ago. COMPARISON: MRI thoracic spine 10/17/2012. TECHNIQUE: Exam performed on a 1.5 Sosa high-field MRI scanner. Sagittal T1, T2 and STIR sequences were obtained. FINDINGS: Vertebrae/marrow signal: New moderate anterior compression of the body of T8. Edema present within much of the body. There is maintenance of normal T1 marrow signal within portions of the vertebral body as well as within the posterior elements. Minimal retropulsion of bone at T8-T9. No other evidence of acute compression fractures. Mild anterior compression fractures of bodies of T4 and T6 are stable. No other suspicious marrow signal abnormalities. Disc spaces/endplates: Degenerative Schmorl's node again involves the superior endplate of T11. Similar mild degenerative endplate changes at T3-T4 and T5-T6. Small central-right paracentral disc bulge at T10-T11. Central canal/neural foramina: No evidence of central canal stenosis or significant neuroforaminal narrowing. Spinal cord: Spinal cord is normal in signal and configuration. Conus medullaris normal. Soft tissues: No evidence of paravertebral masses. Procedure Note Devyn Ochoa MD - 07/19/2020 HISTORY: Pain since lifting injury 4 months ago. COMPARISON: MRI thoracic spine 10/17/2012. TECHNIQUE: Exam performed on a 1.5 Sosa high-field MRI scanner. SagittalT1, T2 and STIR sequences were obtained. FINDINGS: Vertebrae/marrow signal: New moderate anterior compression of the body ofT8. Edema present within much of the body. There is maintenance of normalT1 marrow signal within portions of the vertebral body as well as withinthe posterior elements. Minimal retropulsion of bone at T8-T9. No otherevidence of acute compression fractures. Mild anterior compressionfractures of bodies of T4 and T6 are stable. No other suspicious marrowsignal abnormalities. Disc spaces/endplates: Degenerative Schmorl's node again involves thesuperior endplate of T11. Similar mild degenerative endplate changes atT3-T4 and T5-T6. Small central-right paracentral disc bulge at T10-T11. Central canal/neural foramina: No evidence of central canal stenosis orsignificant neuroforaminal narrowing. Spinal cord: Spinal cord is normal in signal and configuration. Conusmedullaris normal. Soft tissues: No evidence of paravertebral masses. IMPRESSION: Acute-subacute moderate compression fracture of the body of T8. Nosignificant retropulsion of bone or central canal stenosis. No otherevidence of acute or subacute compression fractures. No other significantchanges from 10/17/2012. Rajwinder CARNEY Priyank MR XSPECIALTY Final Resul t documented in this encounter Visit Diagnoses Diagnosis Pain in thoracic spine- Primary Pain in thoracic spine Pain in thoracic spine documented in this encounter Additional Health Concerns Infection Onset Date Last Indicated Resolved Time CoV-Risk 11/30/2020 11/30/2020 11/30/2020 11:2 1 PM EDT COVID-19 11/30/2020 11/30/2020 12/20/2020 1:23 AM EDT documented as of this encounter Care Teams Camp Dishwasher Relationship Specialty Start Date End Date Nabil Mims MD [address] [place] [phone] [email or web address] PCP - General 09/02/17 07/14/20 Rajwinder Ceballos PA [address] [place] [phone] [email or web address] - General 07/15/20 01/12/23 Dar Reyes OT [address] [place] [address] [email or web address] PCP - General Physical Medicine and Rehabilitation 01/13/23 01/17/23 Mahogany Reyes DO [address] [place] [address] [email or web address] PCP - General Family Medicine 01/18/23 Nabil Mims MD [address] [place] [phone] [email or web address] Historical LMR Provider 06/19/17 09/06/21 Kong Koenig MD [address] [place] [address] Historical LMR Provider 06/19/17 09/06/21 documented as of this encounter Additional Source Comments The information contained in this document represents components of the legal health record. It is not the complete legal health record.[facility]
--- OUTSIDE RECORDS SUMMARY | 2025-07-10 13:37 | XMS_ITS | Encounter Summary ---
Author Organization [facility] Address [address] [place] [address] [place] [address] Phone Care Team Providers Care Pc Analyst Name Role Phone Nabil Mims MD Unavailable [phone] Kong Koenig MD Unavailable [phone] Nabil Mims MD Primary Care Provider Rajwinder Ceballos Primary Care Provider [phone] Dra Reyes OT Primary Care Provider Mahogany Reyes DO Primary Care Provider Encounter Details Date Type Department Care Team (Latest Contact Info) Description 07/12/2020 Ancillary Orders Virtual Department [address] [place] [address] Rajwinder Ceballos PA [address] [place] [address] [email or web address] Asymptomatic menopausal state; Post-menopausal Social History Tobacco Use Types Packs/Day Years [...] on file documented as of this encounter Visit Diagnoses Diagnosis Asymptomatic menopausal state Post-menopausal Asymptomatic postmenopausal status (age-related) (natural) documented in this encounter Additional Health Concerns Infection Onset Date Last Indicated Resolved Time CoV-Risk 11/30/2020 11/30/2020 11/30/2020 11:2 1 PM EDT COVID-19 11/30/2020 11/30/2020 12/20/2020 1:23 AM EDT documented as of this encounter Care Teams Pc Analyst Relationship Specialty Start Date End Date Nabil Mims MD [address] [place] [address] [email or web address] PCP - General 09/02/17 07/14/20 Rajwinder Ceballos PA [address] [place] [phone] [email or web address] PCP - General 07/15/20 01/12/23 Dar Reyes OT [address] [place] [address] [email or web address] PCP - General Physical Medicine and Rehabilitation 01/13/23 01/17/23 Mahogany Reyes DO [address] [place] [phone] PCP - General Family Medicine 01/18/23 Nabil Mims MD [address] [place] [phone] [email or web address] Historical LMR Provider 06/19/17 09/06/21 Kong Koenig MD [address] [place] [address] Historical LMR Provider 06/19/17 09/06/21 documented as of this encounter Additional Source Comments The information contained in this document represents components of the legal health record. It is not the complete legal health record.[facility]
--- OUTSIDE RECORDS SUMMARY | 2025-07-10 13:37 | XMS_ITS | Encounter Summary ---
Author Organization [facility] Address [address] [place] [address] Phone Care Team Providers Care Library Serials Assistant Name Role Phone Mahogany Reyes DO Primary Care Provider [phone] Encounter Details Date Type Department Care Team (Late st Contact Info) Description 06/22/2024 Procedure Pass [facility] Endoscopy Admitting Dept Virtual Department [address] [place] [address] Social History Tobacco Use Types Packs/Day Years Used Date Smoking Tobacco: Former Cigarettes Q uit: 2013 Smokeless Tobacco: Never Alcohol Use Standard Drinks/Week Comments Yes 6 (1 standard drink = 0.6 oz pur e alcohol) 6-8 Home Health Assessment: Transportation Answer Date Recorded Lack of Transportation (Medical) No 03/04/2023 Lack of Transportation (Non-Medical) No 03/04/2023 Patient Unable or Declines to Respond No 03/04/2023 Education Answer Date Recorded Are you interested in more education? Not on wandy e 12/25/2022 Are you concerned about learning? Not on file 12/25/2022 No 12/25/2022 No 12/25/2022 Digital Access Answer Date Recorded No 01/25/2023 No 01/25/2023 Reliable internet access at home? Not on file 01/25/2023 Device with a working camera? Not on file Intimate Partner Violence Answer Date R ecorded Are you denied basic needs s uch as food, clothing, or medical care? No 06/22/2024 In the past 12 months have y ou been in a relationship with a person who hurts, threatens, or tries to control you? No 06/22/2024 Are you denied basic needs s uch as food, clothing, or medical care? No 06/22/2024 In the past 12 months have y ou been in a relationship with a person who hurts, threatens, or tries to control you? No 06/22/2024 Sex and Gender Information Value Date Recorded Sex Assigned at Male 04/06/2018 4:11 PM EDT Legal Sex Male 9:39 PM EDT Gender Identity Male 04/06/2018 4:11 PM EDT Sexual Orientation Straight 07/17/2019 2: 06 PM EST documented as of this encounter Plan of Treatment Not on file documented as of this encounter Visit Diagnoses Not on filedocumented in this encounter Care Teams Library Serials Assistant Relationship Specialty Start Date End Date Mahogany Reyes DO [address] [place] [phone] [email or web address] PCP - General Family Medicine 01/18/23 documented as of this encounter Additional Source Comments The information contained in this document represents components of the legal health record. It is not the complete legal health record.[facility]
--- OUTSIDE RECORDS SUMMARY | 2025-07-10 13:37 | XMS_ITS | Encounter Summary ---
Author Organization [facility] Address [address] [place] [address] [place] [address] Phone Care Team Providers Care Bpm Developer Name Role Phone Nabil Mims MD Unavailable [phone] Kong Koenig MD Unavailable Nabil Mims MD Primary Care Provider Rajwinder Ceballos Primary Care Provider Dar Reyes OT Primary Care Provider [phone] Mahogany Reyes DO Primary Care Provider Encounter Details Date Type Department Care Team (Late st Contact Info) Description 10/14/2017 Procedure Pass [facility] Endoscopy Admitting Dept Virtual Department [address] [place] [address] Social History Tobacco Use Types Packs/Day Years [...] Diagnoses Not on filedocumented in this encounter Additional Health Concerns Infection Onset Date Last Indicated Resolved Time CoV-Risk 11/30/2020 11/30/2020 11/30/2020 11:2 1 PM EDT COVID-19 11/30/2020 11/30/2020 12/20/2020 1:23 AM EDT documented as of this encounter Care Teams Bpm Developer Relationship Specialty Start Date End Date Nabil Mims MD [address] [place] [address] [email or web address] PCP - General 09/02/17 07/14/20 Rajwinder Ceballos PA [address] [place] [address] [email or web address] PCP - General 07/15/20 01/12/23 Dar Reyes OT [address] [place] [address] [email or web address] PCP - General Physical Medicine and Rehabilitation 01/13/23 01/17/23 Mahogany Reyes DO [address] [place] [id number] [email or web address] PCP - General Family Medicine 01/18/23 Nabil Mims MD [address] [place] [phone] [email or web address] Historical LMR Provider 06/19/17 09/06/21 Kong Koenig MD [address] [place] [address] Historical LMR Provider 06/19/17 09/06/21 documented as of this encounter Additional Source Comments The information contained in this document represents components of the legal health record. It is not the complete legal health record.[facility]
--- OUTSIDE RECORDS SUMMARY | 2025-07-10 13:37 | XMS_ITS | Clinical Summary ---
Author Organization [facility] Address [address] [address] Phone Care Team Providers Care Deer Farm Worker Name Role Phone Mahogany Reyes DO Primary Care Provider [phone] Allergies No known active allergies Medications atorvastatin (LIPITOR) 80 MG tabletIndications: mixed hyperlipidemia Take 80 mg by mouth daily. Indications: MIXED HYPERLIPIDEMIA Active losartan (COZAAR) 100 MG tablet Take 100 mg by mouth daily. 08/23/20 21 Active sildenafiL (VIAGRA) 25 mg tablet Take 25 mg by mouth daily. 09/23/19 22 Active esomeprazole (NEXIUM) 20 MG capsule Take 20 mg by mouth daily before breakfast. Active aspirin 81 MG EC tablet Take 1 tablet (81 mg total) by mouth 2 (two) times a day. 60 tablet 02/10/20 23 Active amLODIPine (NORVASC) 10 MG tablet Take 1 tablet by mouth every morning. 03/12/20 23 Active amoxicillin (AMOXIL) 500 MG capsuleIndications :Aftercare following left knee joint replacement surgery,Need for antibiotic prophylaxis for dental procedure Take (4 capsules) 2000 mg by mouth one hour prior to dental work. Use remaining capsules for future visits. 16 capsule 2 12/06/19 24 Active ibuprofen (ADVIL,MOTRIN) 200 MG tablet Take 600 mg by mouth every 6 (six) hours as needed for pain (specific location in comments). Active Active Problems Problem Noted Date Diagnosed Date Aftercare following left knee joint replacement surgery 03/25/2023 CAD in [place] artery 01/12/2023 Cardiomyopathy 01/12/2023 HLD (hyperlipidemia) 01/12/2023 HTN (hypertension) 01/12/2023 Primary osteoarthritis of left knee 05/18/2022 Overview (10/13/2022): Medial compartment Social History Tobacco Use Types Packs/Day Years Used Date Smoking Tobacco: Former Cigarettes Q uit: 2013 Smokeless Tobacco: Never Tobacco Cessation:Counseling Given: Not Answered Alcohol Use Standard Drinks/Week Comments Yes 6 [...] Orientation Straight 07/17/2019 2: 06 PM EST Last Filed Vital Signs Vital Sign Reading Time Taken Comments Blood Pressure 115/74 06/22/2024 12:16 PM EDT Pulse 65 06/22/2024 12:16 PM EDT Temperature 35.9 C (96.6 F) 06/22/2024 12:02 PM EDT Respiratory Rate 13 06/22/2024 12:16 PM EDT Oxygen Saturation 96% 06/22/2024 12:16 PM EDT Inhaled Oxygen Concentration - - Weight 104.3 kg (230 lb) 06/20/2024 2:11 PM EDT Height 182.9 cm (6') 06/20/2024 2:11 PM EDT Body Mass Index 31.19 06/20/2024 2:11 PM EDT Plan of Treatment Health Maintenance Due Date Last Done Comments DEPRESSION SCREENING 1979 SMOKING Hx and SMOKELESS TOBACCO SCREENING 1980 HEPATITIS C SCREENING 1985 HIV ONE-TIME SCREENING (18-6 5 YEARS) 1985 PNEUMOCOCCAL VACCINES (50+ years) (1 of 2 - PCV) 1986 COLOGUARD 2012 FIT TEST 2012 FOBT 2012 VIRTUAL COLONOSCOPY 2012 ZOSTER VACCINES (1 of 2) 2017 BLOOD PRESSURE 09/04/2023 03/04/2023 CREATININE LEVEL 12/05/2023 12/04/2022, 07/17/2019 POTASSIUM LEVEL 12/05/2023 12/04/2022, 07/17/2019 INFLUENZA VACCINE (#1) 2025 COVID-19 VACCINE (1 - 2024-2 6 season) 2025 SCREENING FOR DIABETES 02/09/2026 , 12/04/2022 COLONOSCOPY 06/28/2028 04/01/2023, 10/14/2017 COLORECTAL CANCER SCREENING 06/28/2028 SIGMOIDOSCOPY 06/22/2029 06/22/2024 Adult Td,Tdap Booster 05/16/2034 05/16/2024 , 06/27/2014, 10/04/2001 RSV VACCINE (1 - 1-dose 75+ series) 2042 HEPATITIS A VACCINES Aged Out No long er eligible based on patient's age to complete this topic HIB VACCINES Aged Out No longer eligi ble based on patient's age to complete this topic IPV VACCINES Aged Out No longer eligi ble based on patient's age to complete this topic MENINGOCOCCAL VACCINES (ACWY) Aged Out No longer eligible based on patient's age to complete this topic MENINGOCOCCAL VACCINES (B) Aged Out N o longer eligible based on patient's age to complete this topic Medical Devices Implanted Type Area Aircraft Power Plant Assembler Device Identifier Shelf Expiration Date Model / Serial / Lot Knee Bearing Large Sz 3 Wellman Arcom Polyethylene Anatomic Meniscal Left - [id number] Implanted:Qty: 1 on 02/09/2023 by Partha Woodall MD at [facility] NODATA Left: Knee [employer] 04/12/2023 [id number] / / [id number] Tray Knee Wellman Polyethylene Unicompartmental Medial Tibia Lt Size G - [id number] Implanted:Qty: 1 on 02/09/2023 by Partha Woodall MD at [facility] STANDARD Left: Knee [employer] 10/23/2025 [id number] / / [id number] Stent Implanted:Qty: 1 Stent Heart Bone Cement Antibiotic Refobacin - [id number] Implanted:Qty: 1 on 02/09/2023 by Partha Woodall MD at [facility] Left: Knee MELI [employer] 03/29/2025 [id number] / / [id number] Knee Implant Large Component Femoral Wellman [place] Alloy Twin Pegged Cemented Partial - [id number] Implanted:Qty: 1 on 02/09/2023 by Partha Woodall MD at [facility] Left: Knee [employer] 11/26/2030 [id number] / / [id number] Clip Hemostasis 360deg 235cm Resolution 360 Latex Free 2.8mm Channel Bx/20ea - [id number] Implanted:Qty: 3 on 04/01/2023 by Kvng Jackson MD at [facility] [id number] 3 / / Procedures Procedure Name Priority Date/Time Associated Diagnosis Comments ENDOSCOPY, SIGMOID 06/22/2024 11 :36 AM EDT ENDOSCOPY, COLON 04/01/2023 11:0 6 AM EDT COMPREHENSIVE METABOLIC PANEL (CMP) Routine 12/04/2022 4:23 PM EDT Primary localized osteoarthrosis of left lower leg from Last 3 Months or Most Recently Relevant to Health Maintenance Results * ENDOSCOPY, SIGMOID (06/22/2024 11:36 AM EDT) Narrative Transcriptions Kvng Jackson MD - 06/22/2024 11:36 AM EDT [facility] Patient Name: Manjinder Lizarraga Attending MD:: KVNG JACKSON MD, Procedure Date: 06/22/2024 11:36AM Date of : 1965 Age: 59 Admit Type: Outpatient Gender: Male Room: [place] [address] Referring MD: Mahogany Reyes Exam Type: Flexible Sigmoidoscopy Indications: High risk colon cancer surveillance: Personalhistory of colonic polyps Medications: Propofol per Anesthesia Procedure: Informed consent was obtained from the patientafter discussion of the indications, limitations, alternatives, benefits, and risks of the procedure. Risks specifically discussed include but are not limited to medication reactions, missed lesions, bleeding, perforation, or the need for emergent surgery. Throughout the procedure, the patient's blood pressure, pulse, end-tidal CO2, and oxygensaturations were monitored continuously. The Olympus pediatric variable colonoscope [id number] #6 was introduced through the anus and advanced to the lefttransverse colon. The flexible sigmoidoscopy was accomplished without difficulty. The patient tolerated the procedure well. The quality of the bowelpreparation was good. The bowel preparation used was Fleetsenema. Complications: No immediate complications. Estimated blood loss:None. Findings: The perianal and digital rectal examinations were normal. Pertinent negatives include normal prostate (size, shape, and consistency). A 12 mm linear polypoid lesion with significant submucosal companant and a proximal scar from prior polypectomy was found in the distal rectum. Thelesion was semi-sessile and raised by submocal tissue withis firm and difficult to capture with the snare.. The polyp was removed with a piecemeal technique usinga hot snare. Polyp resection was incomplete, ie the submucosal raised portion. The resected tissue was retrieved. (Previous pathology granulation tissue only). The retroflexed view of the distal rectum and anal verge was otherwise normal and showed no anal or rectal abnormalities. The lesion described abovedoes not extend to the anal verge. The exam was otherwise normal throughout theexamined colon. Impression: - Likely benign polypoid lesion in the distalrectum. Tissue was removed. Recommendation: - No aspirin, ibuprofen, naproxen, or other non-steroidal anti-inflammatory drugs for 2 weeks after polyp removal. - Await pathology results. KVNG JACKSON MD 06/22/2024 12:04:35 PM This report has been signed electronically. Number of Addenda: 0 Note Initiated On: 06/22/2024 11:36 AM Procedure Code(s): --- Professional --- 24188, Sigmoidoscopy, flexible; with removal of tumor(s), polyp(s),or other lesion(s) by snare technique --- Technical --- 48194, Sigmoidoscopy, flexible; with removal of tumor(s), polyp(s),or other lesion(s) by snare technique Diagnosis Code(s): --- Professional --- Z86.010, Personal history of colonic polyps D49.0, Neoplasm of unspecified behavior ofdigestive system --- Technical --- Z86.010, Personal history of colonic polyps D49.0, Neoplasm of unspecified behavior ofdigestive system CPT copyright 2021 [employer]. All rights reserved. The codes documented in this report are preliminary and upon county surveyor reviewmay be revised to meet current compliance requirements. Procedure Date: 06/22/2024 11:36:[address] [place] [id number] us Mahogany Reyes DO GI PROCEDURE ORDERABLES Nellie rico Result * ENDOSCOPY, COLON (04/01/2023 11:06 AM EDT) Narrative Transcriptions Kvng Jackson MD - 04/01/2023 11:06 AM EDT [facility] Patient Name: Manjinder Lizarraga Attending MD:: KVNG JACKSON MD, Procedure Date: 04/01/2023 11:06 AM Date of : 1965 Age: 58 Admit Type: Outpatient Gender: Male Room: [place] [address] Referring MD: Mahogany Reyes Exam Type: Colonoscopy Indications: Screening for colorectal malignant neoplasm, Last colonoscopy: September 2017 Medications: Propofol per Anesthesia Procedure: Informed consent was obtained from the patientafter discussion of the indications, limitations, alternatives, benefits, and risks of the procedure. Risks specifically discussed include but are not limited to medication reactions, missed lesions, bleeding, perforation, or the need for emergent surgery. Throughout the procedure, the patient's blood pressure, pulse, end-tidal CO2, and oxygensaturations were monitored continuously. The Olympus adult variable colonoscope [id number] #5 was introduced through the anus and advanced to the cecum, identified by appendiceal orifice andileocecal valve. The ileocecal valve, appendiceal orifice,and rectum were photographed. The colonoscopy was performed without difficulty. The patient tolerated the procedure well. The quality of the bowel preparation was good. The bowel preparation usedwas GoLYTELY via split dose instruction. Complications: No immediate complications. Estimated blood loss:None. Findings: The perianal and digital rectal examinations were normal. Pertinent negatives include normal prostate (size, shape, and consistency). A 20 mm polypoid lesion was found in the distal rectum. The lesion was polypoid and sessile,extending from the anal verge, elongated and sessile itsfoull length, somewhat firm, poypoid protrusionsespecially proximally. The polyp was removed with a hot snare. Polyp resection was incomplete, most of thepolypoid tissue. The resected tissue was retrieved. Toprevent bleeding after the polypectomy, three hemostaticclips were successfully placed (MR conditional). Therewas no bleeding during, or at the end, of theprocedure. A small polyp was found in the transverse colon.The polyp was sessile. The polyp was removed with acold snare. Resection and retrieval were complete. The exam was otherwise without abnormality. Retroflexion in the right colon was performed. Impression: - Likely benign polypoid lesion in the distalrectum. Tissue was removed. Clips (MR conditional) wereplaced. - One small polyp in the transverse colon, removed with a cold snare. Resected and retrieved. - The examination was otherwise normal. Recommendation: - No aspirin, ibuprofen, naproxen, or other non-steroidal anti-inflammatory drugs for 2 weeks after polyp removal. - Repeat colonoscopy [day] for surveillance basedon pathology results. May require furhter removal, ideally with surgeon. KVNG JACKSON MD 04/01/2023 11:59:35 AM This report has been signed electronically. Number of Addenda: 0 Note Initiated On: 04/01/2023 11:06 AM Procedure Code(s): --- Professional --- 62654, Colonoscopy, flexible; with removal of tumor(s), polyp(s), or other lesion(s) by snare technique --- Technical --- 76406, Colonoscopy, flexible; with removal of tumor(s), polyp(s), or other lesion(s) by snare technique Diagnosis Code(s): --- Professional --- Z12.11, Encounter for screening for malignantneoplasm of colon D49.0, Neoplasm of unspecified behavior ofdigestive system D12.3, Benign neoplasm of transverse colon (hepatic flexure or splenic flexure) --- Technical --- Z12.11, Encounter for screening for malignantneoplasm of colon D49.0, Neoplasm of unspecified behavior ofdigestive system D12.3, Benign neoplasm of transverse colon (hepatic flexure or splenic flexure) CPT copyright 2021 [employer]. All rights reserved. The codes documented in this report are preliminary and upon county surveyor reviewmay be revised to meet current compliance requirements. Procedure Date: 04/01/2023 11:06:12 AM [address] [place] [address] Mahogany Reyes GI PROCEDURE ORDERABLES Edit ed Result - Final * (ABNORMAL) Comprehensive metabolic panel (12/04/2022 4:23 PM EDT) SODIUM 140 133 - 146 mmol/L [facility] POTASSIUM 4.6 3.3 - 5.1 mmol/L [facility] CHLORIDE 102 96 - 108 mmol/L [facility] CO2 29 21 - 35 mmol/L [facility] BUN 11 6 - 19 mg/dL [facility] CREATININE 0.70 0.5 - 1.5 mg/dL [facility] GLUCOSE 103(H) 70 - 99 mg/dL [facility] ALBUMIN 4.5 3.9 - 4.8 g/dL [facility] TOTAL PROTEIN 7.9 6.5 - 8.0 g/dL [facility] CALCIUM 9.7 8.4 - 10.3 mg/dL [facility] ALKALINE PHOSPHATASE 87 39 - 117 U/L [facility] TOTAL BILIRUBIN 0.6 0.0 - 1.2 mg/dL [facility] AST 33 0 - 37 U/L [facility] ALT 70(H) 0 - 40 U/L [facility] GLOBULIN 3.4 1 - 4.8 g/dL [facility] EGFR 109 >59 mL/min/1.7 3m2 [facility] Comment:Estimated glomerular filtration rate calculated using the CKD-EPI refit equation. ANION GAP 14 10 - 20 mmol/L [facility] Blood 12/04/2022 4:23 PM EDT 12/04/2022 4:32 PM EDT us Partha Woodall MD LAB BLOOD BKR ORDERABLES Nellie trisha Result [facility] [address] [place] [address] from Last 3 Months or Most Recently Relevant to Health Maintenance Insurance [employer] [facility] [employer] [facility] [employer] [facility] Care Teams Deer Farm Worker Relationship Specialty Start Date End Date Mahogany Reyes DO [address] [place] [id number] PCP - General Family Medicine 01/18/23 Additional Source Comments The information contained in this document represents components of the legal health record. It is not the complete legal health record.[facility]
--- OUTSIDE RECORDS SUMMARY | 2025-07-10 13:37 | XMS_ITS | Encounter Summary ---
Author Organization [facility] Address [facility]orse [facility] [address] [place] [address] Phone Care Team Providers Care File Conversion Operator Name Role Phone Nabil Mims MD Unavailable [phone] Kong Koenig MD Unavailable [phone] Nabil Mims MD Primary Care Provider Rajwinder Ceballos Primary Care Provider [phone] Dar Reyes OT Primary Care Provider [phone] Mahogany Reyes DO Primary Care Provider Encounter Details Date Type Department Care Team (Late st Contact Info) Description 07/12/2020 Procedure Pass [facility], [address] [address] Social History Tobacco Use Types Packs/Day Years [...] documented as of this encounter Care Teams File Conversion Operator Relationship Specialty Start Date End Date Nabil Mims MD [address] [place] [address] [email or web address] PCP - General 09/02/17 07/14/20 Rajwinder Ceballos PA [address] [place] [address] [email or web address] PCP - General 07/15/20 01/12/23 Dar Reyes OT [address] [place] [phone] [email or web address] PCP - General Physical Medicine and Rehabilitation 01/13/23 01/17/23 Mahogany eRyes DO [address] [place] [phone] [email or web address] PCP - General Family Medicine 01/18/23 Nabil Mims MD [address] [place] [phone] [email or web address] Historical LMR Provider 06/19/17 09/06/21 Kong Koenig MD [address] [place] [address] Historical LMR Provider 06/19/17 09/06/21 documented as of this encounter Additional Source Comments The information contained in this document represents components of the legal health record. It is not the complete legal health record.[facility]
--- OUTSIDE RECORDS SUMMARY | 2025-07-10 13:38 | XMS_ITS | Encounter Summary ---
Author Organization [facility] Address [address] [place] [address] [place] [address] Phone Care Team Providers Care Command Center Analyst Name Role Phone Nabil Mims MD Unavailable [phone] Kong Koenig MD Unavailable Rajwinder Ceballos Primary Care Provider Dar Reyes OT Primary Care Provider [phone] Mahogany Reyes DO Primary Care Provider Encounter Details Date Type Department Care Team (Latest Contact Info) Description 07/16/2020 Ancillary Orders Virtual Department [address] [place] [address] Rajwinder Ceballos PA [address] [place] [address] [email or web address] Asymptomatic menopausal state; Post-menopausal; Collapsed vertebra, not elsewhere classified, thoracic region, initial encounter for fracture Social History Tobacco Use Types Packs/Day Years [...] documented as of this encounter Results * BD DXA AXIAL (SPINE) WITH HIP (08/12/2020 2:05 PM EST) Anatomical Region Laterality Modality Bone Density Bone Density 08/12/2020 2:18 PM EST Impressions 08/12/2020 5:40 PM EST Bone mineral density falls within the normal range. However, this should be correlated with the known compression fractures at L2 and L4. Narrative 08/12/2020 5:40 PM EST This is a 55-year-old male with a history of compression fractures of L2 and L4. Evaluation of the lumbar spine at L1 and L3 and both hips is obtained and appears technically adequate. The lumbar spine at L1 and L3 discloses a total bone mineral density of 1.080 g/cm2 with a T-score of 0.2. This is in the normal range. The right hip (total) has a total bone mineral density of 1.024 g/cm2 with a T-score of -0.1. This is in the normal range. The right hip (neck) has a total bone mineral density of 0.756 g/cm2 with a T- score of -1.3. The left hip (total) has a total bone mineral density of 1.029 g/cm2 for a T- score of 0.0. This is in the normal range. The left hip (neck) has a total bone mineral density of 0.766 g/cm2 with a T- score of -1.2. Procedure Note Devyn Ochoa MD - 08/12/2020 This is a 55-year-old male with a history of compression fractures of L2and L4. Evaluation of the lumbar spine at L1 and L3 and both hips is obtained andappears technically adequate. The lumbar spine at L1 and L3 discloses a total bone mineral density of1.080 g/cm2 with a T-score of 0.2. This is in the normal range. The right hip (total) has a total bone mineral density of 1.024 g/ry7sjbr a T- score of -0.1. This is in the normal range. The right hip (neck) has a total bone mineral density of 0.756 g/cm2 witha T- score of -1.3. The left hip (total) has a total bone mineral density of 1.029 g/cm2 for aT- score of 0.0. This is in the normal range. The left hip (neck) has a total bone mineral density of 0.766 g/cm2 with aT- score of -1.2. IMPRESSION: Bone mineral density falls within the normal range. However, this shouldbe correlated with the known compression fractures at L2 and L4. us Rajwinder CARNEY IMG BD BONE DENSITY DEXA Nellie l Result documented in this encounter Visit Diagnoses Diagnosis Asymptomatic menopausal state Post-menopausal Asymptomatic postmenopausal status (age-related) (natural) Collapsed vertebra, not elsewhere classified, thoracic region, initial encounter for fracture Asymptomatic menopausal state Post-menopausal Asymptomatic postmenopausal status (age-related) (natural) Collapsed vertebra, not elsewhere classified, thoracic region, initial encounter for fracture documented in this encounter Additional Health Concerns Infection Onset Date Last Indicated Resolved Time CoV-Risk 11/30/2020 11/30/2020 11/30/2020 11:2 1 PM EDT COVID-19 11/30/2020 11/30/2020 12/20/2020 1:23 AM EDT documented as of this encounter Care Teams Command Center Analyst Relationship Specialty Start Date End Date Rajwinder Ceballos PA [address] [place] [phone] [email or web address] PCP - General 07/15/20 01/12/23 Dar Reyes OT [address] [place] [address] [email or web address] PCP - General Physical Medicine and Rehabilitation 01/13/23 01/17/23 Mahogany Reyes DO [address] [place] [phone] PCP - General Family Medicine 01/18/23 Nabil Mims MD [address] [place] [phone] [email or web address] Historical LMR Provider 06/19/17 09/06/21 Kong Koenig MD [address] [place] [address] Historical LMR Provider 06/19/17 09/06/21 documented as of this encounter Additional Source Comments The information contained in this document represents components of the legal health record. It is not the complete legal health record.[facility]
--- OUTSIDE RECORDS SUMMARY | 2025-07-10 13:38 | XMS_ITS | Encounter Summary ---
Author Organization [facility] Address [address] [place] [address] Phone Care Team Providers Care Hearing Therapy Director Name Role Phone Mahogany Reyes DO Primary Care Provider [phone] Encounter Details Date Type Department Care Team (Late st Contact Info) Description 04/01/2023 Procedure Pass [facility] Admitting Dept Virtual Department [address] [place] [address] Social History Tobacco Use Types Packs/Day Years [...] with a working camera? Not on file Sex and Gender Information Value Date Recorded Sex Assigned at Male 04/06/2018 4:11 PM EDT Legal Sex Male 9:39 PM EDT Gender Identity Male 04/06/2018 4:11 PM EDT Sexual Orientation Straight 07/17/2019 2: 06 PM EST documented as of this encounter Plan of Treatment Not on file documented as of this encounter Visit Diagnoses Not on filedocumented in this encounter Care Teams Hearing Therapy Director Relationship Specialty Start Date End Date Mahogany Reyes DO [address] [place] [address] PCP - General Family Medicine 01/18/23 documented as of this encounter Additional Source Comments The information contained in this document represents components of the legal health record. It is not the complete legal health record.[facility]
--- OUTSIDE RECORDS SUMMARY | 2025-07-10 13:38 | XMS_ITS | Encounter Summary ---
Author Organization [facility] Address [facility] esolidar [facility] [address] [place] [address] Phone Care Team Providers Care Accountant Machine Processing Name Role Phone Nabil Mims MD Unavailable [phone] Kong Koenig MD Unavailable [phone] Rajwinder Ceballos Primary Care Provider [phone] Dar Reyes OT Primary Care Provider Mahogany Reyes DO Primary Care Provider [phone] Encounter Details Date Type Department Care Team (Late st Contact Info) Description 07/15/2020 Ancillary Orders [facility],Outside Imaging [address] [place] [address] System, Provider [place] In, [place] [address] Social History Tobacco Use Types Packs/Day Years [...] documented as of this encounter Results * XR SPINE OUTSIDE(NO INTERPRETATION) (07/10/2020 12:00 AM EST) Narrative SYSTEMGENERATED, DOCUMENTATION - 07/15/2020 11:42 AM EST This study is for PACS storage only and not for interpretation. us Provider Not In System PhD IMG OUTSIDE IMAGING W /OUT INTERPRETATION Final Result documented in this encounter Visit Diagnoses Not on filedocumented in this encounter Additional Health Concerns Infection Onset Date Last Indicated Resolved Time CoV-Risk 11/30/2020 11/30/2020 11/30/2020 11:2 1 PM EDT COVID-19 11/30/2020 11/30/2020 12/20/2020 1:23 AM EDT documented as of this encounter Care Teams Accountant Machine Processing Relationship Specialty Start Date End Date Rajwinder Ceballos PA [address] [place] [address] [email or web address] PCP - General 07/15/20 01/12/23 Dar Reyes OT [address] [place] [address] [email or web address] PCP - General Physical Medicine and Rehabilitation 01/13/23 01/17/23 Mahogany Reyes DO [address] [place] [address] [email or web address] PCP - General Family Medicine 01/18/23 Nabil Mims MD [address] [place] [address] [email or web address] Historical LMR Provider 06/19/17 09/06/21 Kong Koenig MD [address] [place] [address] Historical LMR Provider 06/19/17 09/06/21 documented as of this encounter Additional Source Comments The information contained in this document represents components of the legal health record. It is not the complete legal health record.[facility]
--- OUTSIDE RECORDS SUMMARY | 2025-07-10 13:38 | XMS_ITS | Encounter Summary ---
Author Organization [facility] Address [address] [place] [address] [place] [address] Phone Care Team Providers Care Accelerator Technician Name Role Phone Nabil Mims MD Unavailable [phone] Kong Koenig MD Unavailable [phone] Rajwinder Ceballos Primary Care Provider [phone] Dar Reyes OT Primary Care Provider Mahogany Reyes DO Primary Care Provider [phone] Encounter Details Date Type Department Care Team (Latest Contact Info) Description 11/30/2020 Transcribe Orders Virtual Department [address] [place] [address] Elaine Daily MD [address] [place] [address] [email or web address] Cough (Primary Dx); Nonintractable headache, unspecified chronicity pattern, unspecified headache type; Fever, unspecified fever cause Social History Tobacco Use Types Packs/Day Years [...] documented as of this encounter Results * COVID-19 PCR Order (11/30/2020 12:02 PM EDT) COVID Testing Status Specimen received in analyzing lab. Results should be available within 24 to 48 hrs. [facility] Symptomatic? YES [facility] 11/30/2020 12:0 2 PM EDT 11/30/2020 1:47 PM EDT us Elaine Daily MD LAB GENERAL ORDERABLES Final Result [facility] [address] [place] [address] [facility] [address] [place] [address] documented in this encounter Visit Diagnoses Diagnosis Cough- Primary Nonintractable headache, unspecified chronicity pattern, unspecified headache type Fever, unspecified fever cause documented in this encounter Additional Health Concerns Infection Onset Date Last Indicated Resolved Time CoV-Risk 11/30/2020 11/30/2020 11/30/2020 11:2 1 PM EDT COVID-19 11/30/2020 11/30/2020 12/20/2020 1:23 AM EDT documented as of this encounter Care Teams Accelerator Technician Relationship Specialty Start Date End Date Rajwinder Ceballos PA [address] [place] [address] [email or web address] PCP - General 07/15/20 01/12/23 Dar Reyes OT [address] [place] [address] [email or web address] PCP - General Physical Medicine and Rehabilitation 01/13/23 01/17/23 Mahogany Reyes DO [address] [place] [address] PCP - General Family Medicine 01/18/23 Nabil Mims MD [address] [place] [address] [email or web address] Historical LMR Provider 06/19/17 09/06/21 Kong Koenig MD [address] [place] [address] Historical LMR Provider 06/19/17 09/06/21 documented as of this encounter Additional Source Comments The information contained in this document represents components of the legal health record. It is not the complete legal health record.[facility]
--- OUTSIDE RECORDS SUMMARY | 2025-07-10 13:38 | XMS_ITS | Encounter Summary ---
Author Organization [facility] Address [address] [place] [address] Phone Care Team Providers Care Freezing Machine Operator Name Role Phone Mahogany Reyes DO Primary Care Provider [phone] Encounter Details Date Type Department Care Team (Late st Contact Info) Description 02/09/2023 Procedure Pass [place] Admitting Dept - Virtual Department [address] [place] [address] Social History Tobacco Use Types Packs/Day Years Used Date Smoking Tobacco: Former Cigarettes Q uit: 2013 Smokeless Tobacco: Never Alcohol Use Standard Drinks/Week Comments Yes 3 (1 standard drink = 0.6 oz pur e alcohol) Weekend drinker Education Answer Date Recorded Are you interested [...] on filedocumented in this encounter Care Teams Freezing Machine Operator Relationship Specialty Start Date End Date Mahogany Reyes DO [address] [place] [address] [email or web address] PCP - General Family Medicine 01/18/23 documented as of this encounter Additional Source Comments The information contained in this document represents components of the legal health record. It is not the complete legal health record.[facility]
--- OUTSIDE RECORDS SUMMARY | 2025-07-10 13:38 | XMS_ITS | Encounter Summary ---
Author Organization [facility] Address [facility] [employer] [place] [address] [place] [address] Phone Care Team Providers Care Plasterer Maintenance Name Role Phone Nabil Mims MD Unavailable [phone] Kong Koenig MD Unavailable Nabil Mims MD Primary Care Provider [phone] Rajwinder Ceballos Primary Care Provider [phone] Dar Reyes OT Primary Care Provider Mahogany Reyes DO Primary Care Provider Encounter Details Date Type Department Care Team (Late st Contact Info) Description 07/12/2020 Procedure Pass [facility], [address] [address] Social History Tobacco Use Types Packs/Day Years [...] documented as of this encounter Care Teams Plasterer Maintenance Relationship Specialty Start Date End Date Nabil Mims MD [address] [place] [address] [email or web address] PCP - General 09/02/17 07/14/20 Rajwinder Ceballos PA [address] [place] [address] [email or web address] PCP - General 07/15/20 01/12/23 Dar Reyes OT [address] [place] [address] [email or web address] PCP - General Physical Medicine and Rehabilitation 01/13/23 01/17/23 Mahogany Reyes DO [address] [place] [address] [email or web address] PCP - General Family Medicine 01/18/23 Nabil Mims MD [address] [place] [address] [email or web address] Historical LMR Provider 06/19/17 09/06/21 Kong Koenig MD [address] [place] [address] Historical LMR Provider 06/19/17 09/06/21 documented as of this encounter Additional Source Comments The information contained in this document represents components of the legal health record. It is not the complete legal health record.[facility]
--- OUTSIDE RECORDS SUMMARY | 2025-07-10 13:38 | XMS_ITS | Encounter Summary ---
Author Organization [facility] Address [address] [place] [address] [place] [address] Phone Care Team Providers Care National Sales Manager Name Role Phone Rajwinder Ceballos Primary Care Provider Dar Reyes OT Primary Care Provider [phone] Mahogany Reyes DO Primary Care Provider [phone] Encounter Details Date Type Department Care Team (Late st Contact Info) Description 06/04/2022 Procedure Pass [facility], [address] [address] Social History Tobacco Use Types Packs/Day Years [...] on filedocumented in this encounter Care Teams National Sales Manager Relationship Specialty Start Date End Date Rajwinder Ceballos PA [email or web address] PCP - General 07/15/20 01/12/23 Dar Reyes OT [address] [place] [address] [email or web address] PCP - General Physical Medicine and Rehabilitation 01/13/23 01/17/23 Mahogany Reyes DO [address] [place] [address] PCP - General Family Medicine 01/18/23 documented as of this encounter Additional Source Comments The information contained in this document represents components of the legal health record. It is not the complete legal health record.[facility]
== END 2025-07-10 11:31 | disposition home or self-care (01) ==
LOC: HO.LAB 11:30
PROVIDERS: PCP Family Medicine; Visit Provider Nurse Practitioner Family
DX: Z12.5 Encounter for screening for malignant neoplasm of prostate (principal); N40.1 Benign prostatic hyperplasia with lower urinary tract symptoms; N32.89 Other specified disorders of bladder; R35.1 Nocturia; Z80.42 Family history of malignant neoplasm of prostate
CPT/HCPCS: 36415; 84153

== ENCOUNTER 2025-07-19 11:23 | Outpatient (AMB) | payer BC, SELFPAY ==
--- NOTE | 2025-07-19 11:25 | MHC.OFFVIS ---
Intake Visit Reasons: 6m follow up Intake Note: Patient is present for 6m/psa Urology Medication:NONE Antibiotic Allergy:NONE Blood Thinner:ASPIRIN Casualty Underwriter Required: No Allergies No Known Allergies Allergy (Verified 07/19/25 11:55) Medication List - Last Reconciled 07/19/25 by ANGELA Reis- amlodipine 10 mg PO DAILY aspirin (Adult Aspirin Regimen) 81 mg PO DAILY atorvastatin 80 mg PO DAILY losartan 100 mg PO DAILY HPI Comments Details: Manjinder Leonardo is a very pleasant 60-year-old male patient of Dr. Reyes. He has a past medical history of arthritis, low-back pain, GERD, myocardial infarction, hypertension, tinnitus, and hyperlipidemia. He presents to the office today for follow-up of his lower urinary tract symptoms. In discussion with the patient today he reports to be doing and feeling well. He discusses his busy lifestyle at this time as he has been working on his home and [employer]. He reports since his last appointment he has limited fluids prior to bed and does feel this has been helpful in episodes of nocturia he had been experiencing. He does continue to discusses anxiety regarding potential prostate cancer as his brother has prostate cancer. JAYME was performed no nodules or masses palpated. Most recent PSA results were reviewed with the patient today PSA: 04/22 2.1, 07/24 1.7 Previous workup for nocturia has included a sleep study 04/22 that noted VANDANA, very mild, recommendations for conservative measures such as weight reduction and position therapy for treatment planning. He does continue to report episodes of nocturia however feels he has been managing well independently. Previous workup has also included a retroperitoneal ultrasound 06/22 noting bilateral kidneys with no calculi or hydronephrosis. The bladder is well distended. Mild diffuse trabeculations of the bladder wall. Bilateral jets are demonstrated. Pre void bladder volume is approximately 465 mL. Postvoid bladder volume is approximately 60 mL. The prostate gland is enlarged with a volume of approximately 57 mL. He reports he continues to intentionally lose weight and feels this is also been helpful. He denies urinary urgency, urinary frequency, incontinence, hematuria, dysuria, foul smelling urine, changes to urinary stream, flank pain, fever, and or chills. We discussed bladder trabeculations and enlarged prostate. We discussed further treatment options and risks and benefits of these treatment options. Patient would like to continue with surveillance monitoring at this time as he does not feel he has any bothersome urinary issues or concerns. He does discusses ongoing issues with his right knee and believes he needs to knee replacement as well as bilateral carpal tunnel. In office urinalysis results reviewed with the patient today. He otherwise denies any other issues or concerns. [facility] Medical History Allergic arthritis of both knees Closed fracture of lumbar vertebra Low back pain Gastroesophageal reflux Single vessel coronary disease Myocardial infarction Benign essential hypertension Tinnitus Mixed hyperlipidemia Family History Brother Prostate cancer Social History Patient Tobacco Use Status: Former Tobacco user Review of Systems Const All systems reviewed & are unremarkable except as noted in HPI and below Physical Exam Const General: cooperative, healthy appearing, comfortable, no acute distress, well developed, alert and awake Nutritional Appearance: overweight Orientation/consciousness: patient oriented x3 Limitations: no limitations HEENT Head: Yes normal to inspection, Yes normocephalic and Yes atraumatic Ears: hearing grossly normal bilaterally Eyes General: appearance normal, both eyes and all related structures Neck Neck: Yes normal visual inspection and Yes trachea midline Chest Chest palpation & inspection: normal inspection of the chest Resp Effort & Inspection: normal respiratory effort and able to speak in complete sentences Cardio Rate: regular rate GI Inspection: Yes normal to inspection General: Yes no CVA tenderness Back/Spine/Pelvis Back: no CVA tenderness Skin General skin exam: no rashes or lesions noted Neuro General: patient oriented x3 Extrem General: Yes normal to inspection Psych Appearance: grossly normal and well kempt Mental Status: mental status grossly normal Speech and movement: Clear speech present Affect: normal affect Attitude: cooperative Thought process: Normal thought process present Thought content: Normal thought content present Insight: Fair insight present (Psych) Judgement: Fair judgement present (Psych) Results AMB Urinalysis, Automated UA Leukoctes 0 Andry/uL Last Edit by ALEXANDRA Velazquez on 07/19/25 11:38 UA Nitrite Negative Last Edit by ALEXANDRA Velazquez on 07/19/25 11:38 UA Urobilinogen 0.2 mg/dL Last Edit by ALEXANDRA Velazquez on 07/19/25 11:38 UA Protein 15 mg/dL Last Edit by [employer] [facility] on 07/19/25 11:38 UA pH 7.5 Last Edit by [employer] [facility] on 07/19/25 11:38 UA Blood 0 Yoandy/uL Last Edit by [employer] [facility] on 07/19/25 11:38 UA Specific P[place] 1.015 Last Edit by [employer] [facility] on 07/19/25 11:38 UA Ketone Negative Last Edit by [employer] [facility] on 07/19/25 11:38 UA Bilirubin 0 mg/dL Last Edit by [employer] [facility] on 07/19/25 11:38 UA Glucose 0 mg/dL Last Edit by [employer] [facility] on 07/19/25 11:38 Results Reviewed Results Reviewed: Laboratory Last Values Urine pH (Auto) 7.5 07/19/25 11:37 Specific Pinetta (Auto) 1.015 07/19/25 11:37 Urine Protein (Auto) 15 mg/dL 07/19/25 11:37 Glucose (UA)(Auto) 0 mg/dL 07/19/25 11:37 Urine Ketones (Auto) Negative 07/19/25 11:37 Urine Blood (Auto) 0 Yoandy/uL 07/19/25 11:37 Urine Nitrite (Auto) Negative 07/19/25 11:37 Urine Bilirubin (Auto) 0 mg/dL 07/19/25 11:37 Urine Urobilinogen (Auto) 0.2 mg/dL 07/19/25 11:37 Leukocyte Esterase (Auto) 0 Andry/uL 07/19/25 11:37 Assessment & Plan Assessment & Plan (1) Nocturia: Code(s): R35.1 - Nocturia Category: Medical (2) Bladder trabeculation: Code(s): N32.89 - Other specified disorders of bladder Category: Medical (3) Enlarged prostate: Code(s): N40.0 - Benign prostatic hyperplasia without lower urinary tract symptoms Category: Medical (4) Family history of prostate cancer: Code(s): Z80.42 - Family history of malignant neoplasm of prostate Category: Medical Plan In office urinalysis results reviewed with the patient today; as noted above. JAYME performed. Recent PSA results reviewed with the patient today; as noted above. Will continue with surveillance monitoring. Patient reports be happy with current voiding parameters. All questions were answered. Will obtain PSA in 6 months. Follow-up in 6 months with PSA and PVR; or sooner with any issues, concerns, and or questions. Orders: Orders Prostate Specific Antigen 6 Months N32.89 - Other specified disorders of bladder, N40.0 - Benign prostatic hyperplasia without lower urinary tract symptoms, R35.1 - Nocturia, Z80.42 - Family history of malignant neoplasm of prostate AMB Urinalysis Automated Today Z13.9 - Encounter for screening, unspecified Coding Level of Care Code Est Pt Level 3 (64652) Diagnoses Nocturia R35.1 Bladder trabeculation N32.89 Enlarged prostate N40.0 Family history of prostate cancer Z80.42
--- OUTSIDE RECORDS SUMMARY | 2025-07-19 17:36 | XMS_ITS | Encounter Summary ---
Author Organization [facility] Address [facility] [employer] [facility] [address] [place] [address] Phone Care Team Providers Care Photoengraving Printer Name Role Phone Nabil Mims MD Unavailable [phone] Kong Koenig MD Unavailable Rajwinder Ceballos Primary Care Provider Dar Reyes OT Primary Care Provider [phone] Mahogany Reyes DO Primary Care Provider [phone] Encounter Details Date Type Department Care Team (Late st Contact Info) Description 07/15/2020 Ancillary Orders [facility],Outside Imaging [address] [place] [address] System, Provider [place] In, [place] [address] Social History Tobacco Use Types Packs/Day Years [...] documented as of this encounter Care Teams Photoengraving Printer Relationship Specialty Start Date End Date Rajwinder Ceballos PA [address] [place] [address] [email or web address] PCP - General 07/15/20 01/12/23 Dar Reyes OT [address] [place] [address] [email or web address] PCP - General Physical Medicine and Rehabilitation 01/13/23 01/17/23 Mahogany Reyes DO [address] [place] [address] [email or web address] PCP - General Family Medicine 01/18/23 Nabil Mims MD [address] [place] [address] [email or web address] Historical LMR Provider 06/19/17 09/06/21 Kong Koenig MD [address] [place] [address] Historical LMR Provider 06/19/17 09/06/21 documented as of this encounter Additional Source Comments The information contained in this document represents components of the legal health record. It is not the complete legal health record.[facility]
--- OUTSIDE RECORDS SUMMARY | 2025-07-19 17:36 | XMS_ITS | Encounter Summary ---
Author Organization [facility] Address [address] [place] [address] [place] [address] Phone Care Team Providers Care Slab Grinder Name Role Phone Nabil Mims MD Unavailable [phone] Kong Koenig MD Unavailable [phone] Nabil Mims MD Primary Care Provider Rajwinder Ceballos Primary Care Provider Dar Reyes OT Primary Care Provider [phone] Mahogany Reyes DO Primary Care Provider Encounter Details Date Type Department Care Team (Latest Contact Info) Description 07/12/2020 Ancillary Orders Virtual Department [address] [place] [address] Rajwinder Ceballos PA [address] [place] [address] [email or web address] Asymptomatic menopausal state; Post-menopausal Social History Tobacco [...] documented as of this encounter Care Teams Slab Grinder Relationship Specialty Start Date End Date Nabil Mims MD [address] [place] [address] [email or web address] PCP - General 09/02/17 07/14/20 Rajwinder Ceballos PA [address] [place] [address] [email or web address] PCP - General 07/15/20 01/12/23 Dar Reyes OT [address] [place] [address] [email or web address] PCP - General Physical Medicine and Rehabilitation 01/13/23 01/17/23 Mahogany Reyes DO [address] [place] [address] PCP - General Family Medicine 01/18/23 Nabil Mims MD [address] [place] [address] [email or web address] Historical LMR Provider 06/19/17 09/06/21 Kong Koenig MD [address] [place] [address] Historical LMR Provider 06/19/17 09/06/21 documented as of this encounter Additional Source Comments The information contained in this document represents components of the legal health record. It is not the complete legal health record.[facility]
--- OUTSIDE RECORDS SUMMARY | 2025-07-19 17:36 | XMS_ITS | Encounter Summary ---
Author Organization [facility] Address [facility] [employer] [facility] [address] [place] [address] Phone Care Team Providers Care Head Tennis Professional Name Role Phone Nabil Mims MD Unavailable [phone] Kong Koenig MD Unavailable Nabil Mims MD Primary Care Provider [phone] Rajwinder Ceballos Primary Care Provider Dar Reyes OT Primary Care Provider Mahogany Reyes DO Primary Care Provider Encounter Details Date Type Department Care Team (Late st Contact Info) Description 10/14/2017 Procedure Pass [facility] Admitting Dept Virtual Department [address] [place] [address] Social History Tobacco Use Types Packs/Day Years [...] documented as of this encounter Care Teams Head Tennis Professional Relationship Specialty Start Date End Date Nabil Mims MD [address] [place] [address] [email or web address] PCP - General 09/02/17 07/14/20 Rajwinder Ceballos PA [address] [place] [address] [email or web address] PCP - General 07/15/20 01/12/23 Dra Reyes OT [address] [place] [address] [email or web address] PCP - General Physical Medicine and Rehabilitation 01/13/23 01/17/23 Mahogany Reyes DO [address] [place] [address] PCP - General Family Medicine 01/18/23 Nabil Mims MD [address] [place] [address] [email or web address] Historical LMR Provider 06/19/17 09/06/21 Kong Koenig MD [address] [place] [address] Historical LMR Provider 06/19/17 09/06/21 documented as of this encounter Additional Source Comments The information contained in this document represents components of the legal health record. It is not the complete legal health record.[facility]
--- OUTSIDE RECORDS SUMMARY | 2025-07-19 17:36 | XMS_ITS | Encounter Summary ---
Author Organization [facility] Address [facility] Card Capture Services [facility] [address] [place] [address] Phone Care Team Providers Care Prosthetic Aides Teacher Name Role Phone Nabil Mims MD Unavailable [phone] Kong Koenig MD Unavailable Nabil Mims MD Primary Care Provider Rajwinder Ceballos Primary Care Provider Dar Reyes OT Primary Care Provider [phone] Mahogany eRyes DO Primary Care Provider [phone] Encounter Details Date Type Department Care Team (Late st Contact Info) Description 07/12/2020 Procedure Pass [facility] [place] [facility], [address] [address] Social History Tobacco Use Types Packs/Day Years [...] documented as of this encounter Care Teams Prosthetic Aides Teacher Relationship Specialty Start Date End Date Nabil Mims MD [address] [place] [address] [email or web address] PCP - General 09/02/17 07/14/20 Rajwinder Ceballos PA [address] [place] [address] [email or web address] PCP - General 07/15/20 01/12/23 Dar Reyes OT [address] [place] [address] [email or web address] PCP - General Physical Medicine and Rehabilitation 01/13/23 01/17/23 Mahogany Reyes DO [address] [place] [address] [email or web address] PCP - General Family Medicine 01/18/23 Nabil Mims MD [address] [place] [address] [email or web address] Historical LMR Provider 06/19/17 09/06/21 Kong Koenig MD [address] [place] [address] Historical LMR Provider 06/19/17 09/06/21 documented as of this encounter Additional Source Comments The information contained in this document represents components of the legal health record. It is not the complete legal health record.[facility]
--- OUTSIDE RECORDS SUMMARY | 2025-07-19 17:36 | XMS_ITS | Encounter Summary ---
Author Organization [facility] Address [address] [place] [address] Phone Care Team Providers Care Gwot Ia/Ilo Intelligence Support Name Role Phone Mahogany Reyes DO Primary Care Provider [phone] Encounter Details Date Type Department Care Team (Late st Contact Info) Description 06/22/2024 Procedure Pass [facility] Endoscopy Admitting Dept Virtual Department [address] [place] [address] Social History Tobacco Use Types Packs/Day Years [...] on filedocumented in this encounter Care Teams Gwot Ia/Ilo Intelligence Support Relationship Specialty Start Date End Date Mahogany Reyes DO [address] [place] [address] [email or web address] PCP - General Family Medicine 01/18/23 documented as of this encounter Additional Source Comments The information contained in this document represents components of the legal health record. It is not the complete legal health record.[facility]
--- OUTSIDE RECORDS SUMMARY | 2025-07-19 17:36 | XMS_ITS | Encounter Summary ---
Author Organization [facility] Address [address] [place] [address] [place] [address] Phone Care Team Providers Care Apparatus Engineering Technologist Name Role Phone Nabil Mims MD Unavailable [phone] Kong Koenig MD Unavailable [phone] Rajwinder Ceballos Primary Care Provider [phone] Dar Reyes OT Primary Care Provider Mahogany Reyes DO Primary Care Provider Encounter Details Date Type Department Care Team (Latest Contact Info) Description 07/16/2020 Ancillary Orders Virtual Department [address] [place] [address] Rajwinder Ceballos PA [address] [place] [address] [email or web address] Asymptomatic menopausal state; Post-menopausal; Collapsed vertebra, not [...] a total bone mineral density of 1.024 g/zx3fkeo a T- score of -0.1. This is [...] documented as of this encounter Care Teams Apparatus Engineering Technologist Relationship Specialty Start Date End Date Rajwinder Ceballos PA [address] [place] [address] [email or web address] PCP - General 07/15/20 01/12/23 Dar Reyes OT [address] [place] [address] [email or web address] PCP - General Physical Medicine and Rehabilitation 01/13/23 01/17/23 Mahogany Reyes DO [address] [place] [address] PCP - General Family Medicine 01/18/23 Nabil Mims MD [address] [place] [address] [email or web address] Historical LMR Provider 06/19/17 09/06/21 Kong Koenig MD [address] [place] [address] Historical LMR Provider 06/19/17 09/06/21 documented as of this encounter Additional Source Comments The information contained in this document represents components of the legal health record. It is not the complete legal health record.[facility]
--- OUTSIDE RECORDS SUMMARY | 2025-07-19 17:36 | XMS_ITS | Encounter Summary ---
Author Organization [facility] Address [address] [place] [address] Phone Care Team Providers Care Senior Software Engineering Manager Name Role Phone Nabil Mims MD Unavailable [phone] Kong Koenig MD Unavailable [phone] Nabil Mims MD Primary Care Provider [phone] Rajwinder Ceballos Primary Care Provider [phone] Dar Reyes OT Primary Care Provider [phone] Mahogany Reyes DO Primary Care Provider [phone] Reason for Referral * MRI/CAT Scan - Closed Specialty Diagnoses / Procedures Referred By Contac t Referred To Contact Radiology Diagnoses Pain in thoracic spine Procedures MRI Lumbar Spine Rajwinder Ceballos PA Phone: tel: fax: mailto:[email or web address] Referral ID Status Reason Start Date Expiration Date Visits Re quested Visits Authorized [id number] Closed 07/12/2020 07/12/2021 1 1 * MRI/CAT Scan - Closed Specialty Diagnoses / Procedures Referred By Contac t Referred To Contact Radiology Diagnoses Pain in thoracic spine Procedures MRI Thoracic Spine Rajwinder Ceballos PA Phone: tel: fax: mailto:[email or web address] Referral ID Status Reason Start Date Expiration Date Visits Re quested Visits Authorized [id number] Closed 07/12/2020 07/12/2021 1 1 Encounter Details Date Type Department Care Team (Latest Contact Info) Description 07/12/2020 Transcribe Orders Virtual Department [address] [place] [address] Rajwinder Ceballos PA [address] [place] [address] [email or web address] Pain in thoracic spine (Primary Dx) Social [...] documented as of this encounter Care Teams Senior Software Engineering Manager Relationship Specialty Start Date End Date Nabil Mims MD [address] [place] [address] [email or web address] PCP - General 09/02/17 07/14/20 Rajwinder Ceballos PA [address] [place] [address] [email or web address] PCP - General 07/15/20 01/12/23 Dar Reyes OT [address] [place] [address] [email or web address] PCP - General Physical Medicine and Rehabilitation 01/13/23 01/17/23 Mahogany Reyes DO [address] [place] [address] [email or web address] PCP - General Family Medicine 01/18/23 Nabil Mims MD [address] [place] [address] [email or web address] Historical LMR Provider 06/19/17 09/06/21 Kong Koenig MD [address] [place] [address] Historical LMR Provider 06/19/17 09/06/21 documented as of this encounter Additional Source Comments The information contained in this document represents components of the legal health record. It is not the complete legal health record.[facility]
--- OUTSIDE RECORDS SUMMARY | 2025-07-19 17:36 | XMS_ITS | Clinical Summary ---
Author Organization [facility] Address [address] [address] Phone Care Team Providers Care Box Bender Name Role Phone Mahogany Reyes DO Primary Care Provider [phone] Allergies No known active allergies Medications atorvastatin [...] knee joint replacement surgery 03/25/2023 CAD in kasaan artery 01/12/2023 Cardiomyopathy 01/12/2023 HLD (hyperlipidemia) 01/12/2023 [...] HIV ONE-TIME SCREENING (18-6 5 YEARS) 1985 COLOGUARD 2012 FIT TEST 2012 FOBT 2012 VIRTUAL COLONOSCOPY 2012 PNEUMOCOCCAL VACCINES (50+ years) (1 of 1 - PCV) 2017 ZOSTER VACCINES (1 of 2) 2017 BLOOD [...] this topic Medical Devices Implanted Type Area Importer Or Exporter Device Identifier Shelf Expiration Date Model / Serial / Lot Knee Bearing Large Sz 3 Wakeeney Arcom Polyethylene Anatomic Meniscal Left - [id number] Implanted:Qty: 1 on 02/09/2023 by Partha Woodall MD at [facility] NODATA Left: Knee [employer] 04/12/2023 [id number] / / [id number] Tray Knee Wakeeney Polyethylene Unicompartmental Medial Tibia Lt Size G - [id number] Implanted:Qty: 1 on 02/09/2023 by Partha Woodall MD at [facility] STANDARD Left: Knee [employer] 10/23/2025 [id number] / / [id number] Stent Implanted:Qty: 1 Stent Heart Bone Cement Antibiotic Refobacin - [id number] Implanted:Qty: 1 on 02/09/2023 by Partha Woodall MD at [facility] Left: Knee MELI BIOMET 03/29/2025 [id number] / / [id number] Knee Implant Large Component Femoral Wakeeney Egeland Alloy Twin Pegged Cemented Partial - [id number] Implanted:Qty: 1 on 02/09/2023 by Partha Woodall MD at [facility] Left: Knee [employer] 11/26/2030 [id number] / / [id number] Clip Hemostasis 360deg 235cm Resolution 360 Latex Free 2.8mm Channel Bx/20ea - [id number] Implanted:Qty: 3 on 04/01/2023 by Kvng Jackson MD at [facility] StartBull [id number] / / Procedures Procedure Name Priority Date/Time [...] Jackson MD - 06/22/2024 11:36 AM EDT [facility] Patient Name: Manjinder Lizarraga Attending MD:: KVNG JACKSON MD, Procedure Date: 06/22/2024 11:36AM Date of : 1965 Age: 59 Admit Type: Outpatient Gender: Male Room: [place] [address] Referring MD: Mahogany Reyes Exam Type: Flexible [...] 11:36 AM Procedure Code(s): --- Professional --- 89355, Sigmoidoscopy, flexible; with removal of tumor(s), polyp(s),or other lesion(s) by snare technique --- Technical --- 69720, Sigmoidoscopy, flexible; with removal of tumor(s), polyp(s),or other lesion(s) by snare technique Diagnosis Code(s): --- Professional --- Z86.010, Personal history of colonic polyps D49.0, Neoplasm of unspecified behavior ofdigestive system --- Technical --- Z86.010, Personal history of colonic polyps D49.0, Neoplasm of unspecified behavior ofdigestive system CPT copyright 2021 [employer]. All rights reserved. The codes documented in this report are preliminary and upon carton folder reviewmay be revised to meet current compliance requirements. Procedure Date: 06/22/2024 11:36:[address] [place] [address] Mahogany L Reyes DO GI PROCEDURE ORDERABLES Nellie rico Result * ENDOSCOPY, COLON (04/01/2023 11:06 AM EDT) Narrative Transcriptions Kvng Jackson MD - 04/01/2023 11:06 AM EDT [facility] Patient Name: Manjinder Lizarraga Attending MD:: KVNG JACKSON MD, Procedure Date: 04/01/2023 11:06 AM Date of : 1965 Age: 58 Admit Type: Outpatient Gender: Male Room: [place] [address] Referring MD: Mahogany Reyes Exam Type: Colonoscopy [...] monitored continuously. The Olympus adult variable colonoscope [id number] #5 was introduced through the anus and [...] 11:06 AM Procedure Code(s): --- Professional --- 56711, Colonoscopy, flexible; with removal of tumor(s), polyp(s), or other lesion(s) by snare technique --- Technical --- 90436, Colonoscopy, flexible; with removal of tumor(s), polyp(s), [...] flexure or splenic flexure) CPT copyright 2021 [employer]. All rights reserved. The codes documented in this report are preliminary and upon carton folder reviewmay be revised to meet current compliance requirements. Procedure Date: 04/01/2023 11:06:12 AM [address] [place] [address] Mahogany Reyes DO GI PROCEDURE ORDERABLES Edit ed Result - Final * (ABNORMAL) Comprehensive metabolic panel (12/04/2022 4:23 PM EDT) SODIUM 140 133 - 146 mmol/L [facility] POTASSIUM 4.6 3.3 - 5.1 mmol/L [facility] CHLORIDE 102 96 - 108 mmol/L [facility] CO2 29 21 - 35 mmol/L [facility] BUN 11 6 - 19 mg/dL [facility] CREATININE 0.70 0.5 - 1.5 mg/dL [facility] GLUCOSE 103(H) 70 - 99 mg/dL [facility] ALBUMIN 4.5 3.9 - 4.8 g/dL [facility] TOTAL PROTEIN 7.9 6.5 - 8.0 g/dL [facility] CALCIUM 9.7 8.4 - 10.3 mg/dL [facility] ALKALINE PHOSPHATASE 87 39 - 117 U/L [facility] TOTAL BILIRUBIN 0.6 0.0 - 1.2 mg/dL [facility] AST 33 0 - 37 U/L [facility] ALT 70(H) 0 - 40 U/L [facility] GLOBULIN 3.4 1 - 4.8 g/dL [facility] EGFR 109 >59 mL/min/1.7 3m2 [facility] Comment:Estimated glomerular filtration rate calculated using the CKD-EPI refit equation. ANION GAP 14 10 - 20 mmol/L [facility] Blood 12/04/2022 4:23 PM EDT 12/04/2022 4:32 PM EDT us Partha Woodall MD LAB BLOOD BKR ORDERABLES Nellie rico Result [address] [address] from Last 3 Months or Most Recently Relevant to Health Maintenance Insurance [employer] [facility] [employer] [facility] [employer] [facility] [employer] [facility] Care Teams Box Bender Relationship Specialty Start Date End Date Mahogany Reyes DO [address] [place] [address] PCP - General Family Medicine 01/18/23 Additional Source Comments The information contained in this document represents components of the legal health record. It is not the complete legal health record.[facility]
--- OUTSIDE RECORDS SUMMARY | 2025-07-19 17:37 | XMS_ITS | Encounter Summary ---
Author Organization [facility] Address [facility] [employer] [facility] [address] [place] [address] Phone Care Team Providers Care Edger Runner Name Role Phone Nabil Mims MD Unavailable [phone] Kong Koenig MD Unavailable Nabil Mims MD Primary Care Provider Rajwinder Ceballos Primary Care Provider [phone] Dar Reyes OT Primary Care Provider [phone] Mahogany Reyes DO Primary Care Provider Encounter Details Date Type Department Care Team (Late st Contact Info) Description 07/12/2020 Procedure Pass [facility], [address] [address] Social History Tobacco Use Types Packs/Day Years [...] documented as of this encounter Care Teams Edger Runner Relationship Specialty Start Date End Date Nabil Mims MD [address] [place] [address] [email or web address] PCP - General 09/02/17 07/14/20 Rajwinder Ceballos PA [address] [place] [address] [email or web address] PCP - General 07/15/20 01/12/23 Dar Reyes OT [address] [place] [address] [email or web address] PCP - General Physical Medicine and Rehabilitation 01/13/23 01/17/23 Mahogany Reyes DO [address] [place] [address] [email or web address] PCP - General Family Medicine 01/18/23 Nabil Mims MD [address] [place] [address] [email or web address] Historical LMR Provider 06/19/17 09/06/21 Kong Koenig MD [address] [place] [address] Historical LMR Provider 06/19/17 09/06/21 documented as of this encounter Additional Source Comments The information contained in this document represents components of the legal health record. It is not the complete legal health record.[facility]
--- OUTSIDE RECORDS SUMMARY | 2025-07-19 17:37 | XMS_ITS | Encounter Summary ---
Author Organization [facility] Address [address] [place] [address] [place] [address] Phone Care Team Providers Care Quality Systems Specialist Name Role Phone Nabli Mims MD Unavailable [phone] Kong Koenig MD Unavailable Rajwinder Ceballos Primary Care Provider Dar Reyes OT Primary Care Provider Mahogany Reyes DO Primary Care Provider Encounter Details Date Type Department Care Team (Latest Contact Info) Description 11/30/2020 Transcribe Orders Virtual Department [address] [place] [address] Elaine Daily MD [address] [place] [address] [email or web address] Cough (Primary Dx); Nonintractable headache, unspecified [...] be available within 24 to 48 hrs. [facility] Symptomatic? YES [facility] 11/30/2020 12:0 2 PM EDT 11/30/2020 1:47 PM EDT us Elaine Daily MD LAB GENERAL ORDERABLES Final Result [facility] [address] [place] [address] [facility] [address] [place] [address] documented in this encounter Visit Diagnoses Diagnosis Cough- Primary Nonintractable headache, unspecified chronicity pattern, unspecified headache type Fever, unspecified fever cause documented in this encounter Additional Health Concerns Infection Onset Date Last Indicated Resolved Time CoV-Risk 11/30/2020 11/30/2020 11/30/2020 11:2 1 PM EDT COVID-19 11/30/2020 11/30/2020 12/20/2020 1:23 AM EDT documented as of this encounter Care Teams Quality Systems Specialist Relationship Specialty Start Date End Date Rajwinder Ceballos PA [address] [place] [address] PCP - General 07/15/20 01/12/23 Dar Reyes OT [address] [place] [address] [email or web address] PCP - General Physical Medicine and Rehabilitation 01/13/23 01/17/23 Mahogany Reyes DO [address] [place] [address] PCP - General Family Medicine 01/18/23 Nabil Mims MD [address] [place] [address] [email or web address] Historical LMR Provider 06/19/17 09/06/21 Kong Koenig MD [address] [place] [address] Historical LMR Provider 06/19/17 09/06/21 documented as of this encounter Additional Source Comments The information contained in this document represents components of the legal health record. It is not the complete legal health record.[facility]
--- OUTSIDE RECORDS SUMMARY | 2025-07-19 17:37 | XMS_ITS | Encounter Summary ---
Author Organization [facility] Address [address] [place] [address] Phone Care Team Providers Care Battery Builder Name Role Phone Mahogany Reyes DO Primary Care Provider [phone] Encounter Details Date Type Department Care Team (Late st Contact Info) Description 02/09/2023 Procedure Pass [place] Admitting Dept - Virtual Department [address] [place] [address] Social History Tobacco Use Types Packs/Day Years [...] on filedocumented in this encounter Care Teams Battery Builder Relationship Specialty Start Date End Date Mahogany Reyes DO [address] [place] [address] [email or web address] PCP - General Family Medicine 01/18/23 documented as of this encounter Additional Source Comments The information contained in this document represents components of the legal health record. It is not the complete legal health record.[facility]
--- OUTSIDE RECORDS SUMMARY | 2025-07-19 17:37 | XMS_ITS | Encounter Summary ---
Author Organization [facility] Address [address] [place] [address] [place] [address] Phone Care Team Providers Care Wire Technician Name Role Phone Rajwinder Ceballos Primary Care Provider [phone] Dar Reyes OT Primary Care Provider Mahogany Reyes DO Primary Care Provider [phone] Encounter Details Date Type Department Care Team (Late st Contact Info) Description 06/04/2022 Procedure Pass [facility], [address] [address] Social History Tobacco Use Types Packs/Day Years [...] on filedocumented in this encounter Care Teams Wire Technician Relationship Specialty Start Date End Date Rajwinder Ceballos PA [email or web address] PCP - General 07/15/20 01/12/23 Dar Reyes OT [address] [place] [address] [email or web address] PCP - General Physical Medicine and Rehabilitation 01/13/23 01/17/23 Mahogany Reyes DO [address] [place] [address] PCP - General Family Medicine 01/18/23 documented as of this encounter Additional Source Comments The information contained in this document represents components of the legal health record. It is not the complete legal health record.[facility]
--- OUTSIDE RECORDS SUMMARY | 2025-07-19 17:37 | XMS_ITS | Encounter Summary ---
Author Organization [facility] Address [address] [place] [address] Phone Care Team Providers Care Lining Caser Name Role Phone Mahogany Reyes DO Primary Care Provider [phone] Encounter Details Date Type Department Care Team (Late st Contact Info) Description 04/01/2023 Procedure Pass [facility] Endoscopy Admitting Dept Virtual Department [address] [place] [address] Social History Tobacco Use Types Packs/Day Years [...] on filedocumented in this encounter Care Teams Lining Caser Relationship Specialty Start Date End Date Mahogany Reyes DO [address] [place] [address] PCP - General Family Medicine 01/18/23 documented as of this encounter Additional Source Comments The information contained in this document represents components of the legal health record. It is not the complete legal health record.[facility]
== END 2025-07-19 11:55 | disposition home or self-care (01) ==
LOC: HO.HUSH 11:23
PROVIDERS: PCP Family Medicine; Visit Provider Nurse Practitioner Family
DX: R35.1 Nocturia (principal); N32.89 Other specified disorders of bladder; N40.0 Benign prostatic hyperplasia without lower urinary tract symptoms; Z80.42 Family history of malignant neoplasm of prostate; Z13.9 Encounter for screening, unspecified
CPT/HCPCS: 99213

== ENCOUNTER → 2025-07-19 11:23 | Outpatient (BNVA) | payer BC, SELFPAY | PROVIDERS: PCP Family Medicine; Visit Provider Nurse Practitioner Family | DX: R35.1 Nocturia (principal) | CPT/HCPCS: 81003 ==